=== PATIENT | male | born 1940 | race Caucasian/White ===

== ENCOUNTER 2017-03-29 00:37 | Inpatient (IN) | payer MEDICARE ==
[2017-03-29] VITALS (50 sets, daily range): BP systolic 77–141; BP diastolic 41–98
[~2017-03-29] VITALS: Ht 185.4 cm; Wt 98.0 kg
[2017-03-29] MEDS: IPRATROPIUM BROMIDE 0.02% 2.5 ML NEB NEB SCH ×5 (00:30→14:46)
[2017-03-29] MEDS: ALBUTEROL SULF 0.083% NEB SOLN 3 ML NEB NEB SCH ×5 (00:30→14:46)
[~2017-03-29 00:37] MED LIST: ALLEGRA60 MG PO; ASPIRIN81 M2 PO; BEANO1 EACH PO; BENADRYL25 MG PO; CLARITIN10 MG PO; COMBIVENT INH14.7 GM; ECOTRIN81 M1 PO; ESSENTIAL DAIL1 EACH PO; FISH OIL500 MG PO; FLONASE16 GM; HCTZ PO; IBUPROFEN600 MG PO; IPRAT-ALBUT 0.5-3 ML; IPRATROPIU0.2 MG/1 M INH; IRON DEXTRAN; KEFLEX500 MG PO; METOPROLOL TART25 MG PO; METOPROLOL TART50 MG PO; PANTOPRAZOLE SO40 MG PO; POTASSIUM CHLO10 MEQ PO; PREDNISONE5 MG PO; PRILOSEC20 MG PO; SINGULAIR10 MG PO; TYLENOL PO; VENTOLIN HFA18 GM; VENTOLIN HFA18 GM INH; VIT D PO; VITAMIN D1000 UNI1 PO; Z.0.ACTOS15 MG PO; Z.0.DIOVAN HCT 1601 PO; Z.0.GLIMEPIRIDE4 MG PO; Z.0.KLOR-CON M2020 M PO; Z.0.LASIX40 MG PO; Z.0.LASIX80 MG PO; Z.0.METFORMIN HCL500 PO; Z.0.MOTRIN600 MG PO; Z.0.PLAVIX75 MG PO; Z.0.PRADAXA150 MG PO; Z.0.PRILOSEC OTC20 M PO; Z.0.SIMVASTATIN40 MG PO; Z.0.TERAZOSIN HCL10 PO; Z.0.TERAZOSIN HCL5 M PO; Z.0.ZOCOR40 MG PO; Z.4.AMLODIPINE-BEN1 PO; ZYRTEC-D TABLE1 EACH PO; [UNRECOGNIZED DRUG - OTHER]; [UNRECOGNIZED DRUG - OTHER] PO; [UNRECOGNIZED DRUG - OTHER] PO; [UNRECOGNIZED DRUG - OTHER] PO; [UNRECOGNIZED DRUG - OTHER] TOP
[2017-03-29 01:13] LABS: BASOPHILS # (AUTO) 0.1 (0.0-0.1); BASOPHILS % 0.5 % (0.0-1.0); EOSINOPHILS # (AUTO) 0.3 (0.0-0.4); EOSINOPHILS % 1.7 % (0.0-6.0); HEMATOCRIT 24.1 % (38.2-49.6); LYMPHOCYTES # (AUTO) 2.6 (1.0-3.2); LYMPHOCYTES % 15.2 % (18.0-39.1); MEAN CORPUSCULAR HEMOGLOBIN 23.1 pg (28-32); MEAN CORPUSCULAR VOLUME 79.5 fL (81-99); MONOCYTES # (AUTO) 1.1 (0.2-0.8); MONOCYTES % 6.3 % (4.4-11.3); NEUTROPHILS # (AUTO) 12.8 (2.1-6.9); NEUTROPHILS % 75.9 % (38.7-80.0); PLATELET COUNT 192 x10e3/uL (140-360); RED BLOOD COUNT 3.03 x10e6/uL (4.3-5.7); RED CELL DISTRIBUTION WIDTH 21.5 % (11.7-14.4)
[2017-03-29 01:16] LABS: INR 1.36; PROTHROMBIN TIME 17.5 seconds (11.9-14.5)
[2017-03-29 01:17] LABS: PARTIAL THROMBOPLASTIN TIME 44.9 seconds (23.8-35.5)
[2017-03-29 01:26] LABS: ALBUMIN 3.3 g/dL (3.5-5.0); ALBUMIN/GLOBULIN RATIO 1.1 (0.8-2.0); ALKALINE PHOSPHATASE 53 IU/L (40-150); ANION GAP 17.2 mmol/L (8-16); BLOOD UREA NITROGEN 28 mg/dL (7-26); BUN/CREATININE RATIO 25 (6-25); CALCIUM 9.6 mg/dL (8.4-10.2); CARBON DIOXIDE 22 mmol/L (22-29); CHLORIDE 109 mmol/L (98-107); CREATINE KINASE 28 IU/L (30-200); CREATININE, SERUM 1.11 mg/dL (0.72-1.25); EST GLOMERULAR FILTRATION RATE > 60 ML/MIN (60-); GLUCOSE 175 mg/dL (74-118); MAGNESIUM 1.6 MG/DL (1.3-2.1); POTASSIUM 4.2 mmol/L (3.5-5.1); SODIUM 144 mmol/L (136-145)
[2017-03-29 01:27] LABS: ALANINE AMINOTRANSFERASE < 6 IU/L (0-55)
[2017-03-29 01:30] LABS: B-TYPE NATRIURETIC PEPTIDE2 183.8 pg/mL (0-100)
[2017-03-29] MEDS ORDERED: FUROSEMIDE INJ 10 MG/ML 2 ML VIAL IV PRN (01:30)
[2017-03-29] MEDS ORDERED: SODIUM CHLORIDE 0.9% 250ML 250 ML IV ONE ×3 (01:30→18:45)
--- NOTE | 2017-03-29 01:54 | Diagnostic Imaging Report ---
EXAM: CHEST 2 VIEWS, PA and lateral ORDER DATE: 03/29/2017 12:58 AM TIME STAMP ON EXAM: 0128 hours INDICATION: Chest pain, near syncope COMPARISON: AP view of the chest February 29, 2012 FINDINGS: LINES/TUBES: None LUNGS: No consolidations or edema. PLEURA: No effusions or pneumothorax. HEART AND MEDIASTINUM: Normal size and contour. BONES AND SOFT TISSUES: No acute findings. IMPRESSION: No acute thoracic abnormality. Signed by: Dr. Corina Zaragoza M.D. on 03/29/2017 1:50 AM
[2017-03-29] MEDS ORDERED: SODIUM CHLORIDE 0.9% 1000ML 1,000 ML IV STA ×2 (02:09→15:59)
[2017-03-29] MEDS ORDERED: PANTOPRAZOLE 40 MG 10ML VIAL IV STA (02:09)
[2017-03-29] MEDS ORDERED: ALBUTEROL SULF 0.083% NEB SOLN 3 ML NEB NEB STA (02:10)
[2017-03-29] MEDS ORDERED: IPRATROPIUM BROMIDE 0.02% 2.5 ML NEB NEB ONE (02:15)
[2017-03-29] MEDS ORDERED: VANCOMYCIN 1GM/NS 250 ML 250 ML IV STA (02:38)
[2017-03-29] MEDS ORDERED: CEFEPIME HCL 2 GM VIAL IV STA (02:38)
[2017-03-29] MEDS ORDERED: SODIUM CHLORIDE 0.9% 50ML 50 ML ONE (02:59)
[2017-03-29] MEDS ORDERED: IOPAMIDOL 370 MG/ML 200 ML INFUS..BTL INJ ONE (02:59)
--- NOTE | 2017-03-29 03:56 | Diagnostic Imaging Report ---
EXAM: CT ABDOMEN AND PELVIS with IV CONTRAST DATE: 03/29/2017 Time stamp on Exam: 0322 hours INDICATION: Abdominal pain, GI bleeding, diarrhea COMPARISON: None TECHNIQUE: The abdomen and pelvis were scanned using a multidetector helical scanner. Coronal and sagittal reformations were obtained. Routine protocol performed. IV Contrast: 100 cc Isovue-370 Oral Contrast: None CTDIvol has been reviewed. It is below the limits set by the Radiation Protocol Committee (RPC). FINDINGS: LOWER THORAX: No consolidations LIVER: Cyst measuring 1.7 cm in the right lobe of the liver. Several subcentimeter hypodensities are too small to characterize, likely cysts. BILIARY: Cholecystectomy. No ductal dilation. SPLEEN: The spleen is small PANCREAS: No masses ADRENALS: Left adrenal gland hypertrophy KIDNEYS: Symmetric perfusion. No enhancing masses. No hydronephrosis. Simple cyst measuring 1.5 cm and the right kidney and 2 cm and the left kidney. Nonspecific bilateral perinephric fat stranding. GI TRACT: Sigmoid colon diverticulosis with wall thickening and without acute inflammation. Scattered diverticula throughout the colon. No bowel obstruction. Incidentally the appendix contains diverticula. No periappendiceal fat stranding. 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 PERITONEUM/RETROPERITONEUM: No free air or fluid. Round calcified mass measuring approximately 1.5 cm in the anterior upper abdomen, likely related to old fat necrosis. LYMPH NODES: No lymphadenopathy REPRODUCTIVE ORGANS: The prostate contains coarse calcifications and is within normal size limits. BLADDER: Unremarkable SOFT TISSUES: Incidental partially visualized intramuscular lipoma right anterior thigh. BONES: No suspicious bone lesions. IMPRESSION: Extensive colonic diverticulosis with chronic diverticulitis of the sigmoid colon. Signed by: Dr. Corina Zaragoza M.D. on 03/29/2017 3:53 AM
--- NOTE | 2017-03-29 04:28 | Diagnostic Imaging Report ---
Examination: CT BRAIN WITHOUT CONTRAST History:Dizziness Comparison studies:Head CT dated 09/01/2010. Technique: Axial images were obtained from the skull base to the vertex. Coronal and sagittal images reconstructed from the axial data. Intravenous contrast: None Findings: Scalp: No abnormalities. Bones: Intact. No fractures. No blastic or lytic lesions. Brain sulci: Appropriate for patient's age. Ventricles: Normal in size and configuration. No hydrocephalus. . Extra-axial space: No abnormalities. Parenchyma: There are mild confluent areas of low-attenuation within subcortical and periventricular white matter, nonspecific, but could represent microvascular ischemic disease. No masses, hemorrhage, or acute vascular insults. Suprasellar region: No abnormalities. Craniocervical junction: The foramen magnum is patent. No Chiari one malformation. Incidental findings: None. Impression: 1. No acute intracranial abnormality. No change from prior head CT dated 09/01/2010. 2. Mild chronic microvascular ischemic change. Signed by: Dr. Mallika Trujillo M.D. on 03/29/2017 4:25 AM
[2017-03-29 04:32] LABS: BILIRUBIN,URINE NEGATIVE (NEGATIVE); CLARITY,URINE CLEAR (CLEAR); COLOR,URINE YELLOW (YELLOW); KETONES,URINE NEGATIVE (NEGATIVE); LEUKOCYTE ESTERASE ,URINE TRACE (NEGATIVE); NITRITE,URINE NEGATIVE (NEGATIVE); PROTEIN,URINE DIPSTICK NEGATIVE (NEGATIVE); URINE UROBILINOGEN 0.2 mg/dL (0.2 - 1)
[2017-03-29 04:38] LABS: BACTERIA,URINE FEW /HPF; EPITHELIAL CELLS,URINE RARE /LPF; RBC,URINE 0-5 /HPF (0-5)
[2017-03-29] MEDS ORDERED: VANCOMYCIN 1GM/NS 250 ML 250 ML ONE (04:43)
[2017-03-29] MEDS ORDERED: SODIUM CHLORIDE 0.9% 250ML 250 ML ONE ×3 (05:52→18:16)
[2017-03-29] MEDS ORDERED: METRONIDAZOLE 500MG/NS 100ML 100 ML IV SCH (06:00)
[2017-03-29] MEDS ORDERED: BENAZEPRIL HCL40 MG PO (08:24)
[2017-03-29] MEDS ORDERED: METFORMIN HCL500 M1 PO (08:24)
[2017-03-29] MEDS ORDERED: AMLODIPINE BESY10 MG PO (08:24)
[2017-03-29] MEDS ORDERED: K DUR10 MEQ PO (08:24)
[2017-03-29] MEDS ORDERED: TERAZOSIN HCL10 MG PO (08:24)
[2017-03-29] MEDS ORDERED: LEVOFLOXACIN500 MG PO (08:24)
[2017-03-29] MEDS ORDERED: SIMVASTATIN40 MG PO (08:24)
[2017-03-29] MEDS ORDERED: PANTOPRAZOLE 40 MG 10ML VIAL IV SCH ×2 (09:00)
[2017-03-29] MEDS: SODIUM CHLORIDE 0.9% 1000ML 1,000 ML IV SCH ×2 (10:16→22:17)
[2017-03-29] MEDS: CEFEPIME HCL 2 GM VIAL IV SCH (12:47)
[2017-03-29] MEDS: ONDANSETRON HCL INJ 2 MG/ML VIAL IV PRN (12:47)
[2017-03-29] MEDS ORDERED: PROMETHAZINE 25MG/ NS 50ML (IV) IV PRN (13:30)
[2017-03-29] MEDS ORDERED: DIPHENHYDRAMINE HCL INJ 1 ML ONE (14:27)
[2017-03-29] MEDS ORDERED: DIPHENHYDRAMINE HCL INJ 50 MG/ML VIAL IV ONE (14:30)
[2017-03-29] MEDS ORDERED: ETOMIDATE 2 MG/ML 10 ML INJ IV STA (15:40)
[2017-03-29] MEDS ORDERED: PROPOFOL IV EMULSION 10MG/ML 100 ML ONE (15:48)
[2017-03-29] MEDS ORDERED: SODIUM CHLORIDE 0.9% IV ONE (16:35)
[2017-03-29] MEDS ORDERED: AMINOCAPROIC ACID IV ONE (16:35)
[2017-03-29] MEDS ORDERED: MIDAZOLAM HCL 2 MG/2 ML VIAL ONE (16:46)
[2017-03-29] MEDS ORDERED: OCTREOTIDE ACETATE 0.05 MG/ML AMP IV STA (16:58)
[2017-03-29] MEDS ORDERED: MIDAZOLAM HCL 2 MG/2 ML VIAL IV STA (17:15)
[2017-03-29] MEDS ORDERED: SODIUM CHLORIDE 0.9% 1000ML 1,000 ML ONE (17:15)
[2017-03-29] MEDS ORDERED: ALBUMIN HUMAN 12.5GM / 50ML IV ONE (17:15)
[2017-03-29] MEDS ORDERED: NOREPINEPHRINE BITARTRATE/ NS 250 ML ONE (17:15)
[2017-03-29] MEDS ORDERED: PANTOPRAZOLE INJ 40 MG in SODIUM CHLORIDE 0.9% 50ML 50 ML IV STA (17:28)
--- NOTE | 2017-03-29 17:42 | Diagnostic Imaging Report ---
PROCEDURE: A single AP view of the chest. COMPARISON: Chest radiograph 03/29/2017 at 0128 hrs. INDICATIONS: INTUBATION FINDINGS: Lines/tubes: * Right IJ central venous catheter tip overlies the mid SVC. * Endotracheal tube tip projects approximately 4.7 cm above the pallavi. Lungs: New linear and hazy opacities in the left upper lung. No evidence of pulmonary edema. Pleura: There is no pleural effusion or pneumothorax. Heart and mediastinum: The heart and the mediastinum are unremarkable. Bones: No acute bony abnormality. Upper abdomen: Visualized portions of the stomach appear distended. IMPRESSION: 1. ET tube with tip approximately 4.7 cm above the pallavi. 2. Right IJ catheter tip at the level of the mid SVC. 3. New opacities in the left lung may represent atelectasis or developing consolidation. Dictated by: Miguel Angel M.D. on 03/29/2017 at 17:51 Electronically approved by: Miguel Angel M.D. on 03/29/2017 at 17:51
[2017-03-29 17:52] LABS: ABG HCO3 16 mmol/L (23-28); ABG PCO2 41 mmHg (41-51); ABG PH 7.18 (7.31-7.41); ABG PO2 318 mmHg (80-105)
[2017-03-29 17:55] LABS: ABG HCO3 17 mmol/L (23-28); ABG PCO2 26 mmHg (41-51); ABG PH 7.41 (7.31-7.41); ABG PO2 78 mmHg (80-105)
[2017-03-29] MEDS ORDERED: FUROSEMIDE INJ 10 MG/ML 4 ML VIAL ONE (18:16)
[2017-03-29 18:27] LABS: BASOPHILS % 0.1 % (0.0-1.0); EOSINOPHILS % 0.2 % (0.0-6.0); LYMPHOCYTES # (AUTO) 2.1 (1.0-3.2); LYMPHOCYTES % 13.3 % (18.0-39.1); MEAN CORPUSCULAR HEMOGLOBIN 24.3 pg (28-32); MEAN CORPUSCULAR HGB CONC 28.4 g/dL (31-35); MEAN CORPUSCULAR VOLUME 85.6 fL (81-99); MONOCYTES # (AUTO) 1.1 (0.2-0.8); MONOCYTES % 6.8 % (4.4-11.3); NEUTROPHILS # (AUTO) 12.5 (2.1-6.9); PLATELET COUNT 113 x10e3/uL (140-360); RED BLOOD COUNT 1.81 x10e6/uL (4.3-5.7); RED CELL DISTRIBUTION WIDTH 20.6 % (11.7-14.4)
[2017-03-29 18:32] LABS: HEMATOCRIT 15.5 % (38.2-49.6); HEMOGLOBIN 4.4 g/dL (14.0-18.0)
[2017-03-29] MEDS ORDERED: SUCCINYLCHOLINE CHLORIDE 20 MG/ML 10ML VIAL ONE (18:34)
[2017-03-29] MEDS ORDERED: ETOMIDATE 2 MG/ML 10 ML INJ IV ONE (18:34)
[2017-03-29] MEDS ORDERED: VECURONIUM BROMIDE FOR INJ 20 MG VIAL ONE (18:34)
[2017-03-29] MEDS ORDERED: NALOXONE HCL INJ 0.4 MG/ML AMP ONE (18:34)
[2017-03-29] MEDS ORDERED: WATER STERILE 10 ML VIAL ONE (18:34)
[2017-03-29] MEDS ORDERED: FUROSEMIDE INJ 10 MG/ML 4 ML VIAL IV ONE (18:45)
[2017-03-29] MEDS ORDERED: AMIODARONE HCL 150 MG/100 ML BAG IV ONE (18:45)
[2017-03-29] MEDS ORDERED: AMIODARONE HCL 150 MG in DEXTROSE 5% 100ML 100 ML IV SCH (19:00)
[2017-03-29] MEDS ORDERED: DIGOXIN INJ 0.25 MG/ML 2 ML AMP IV ONE (19:00)
[2017-03-29] MEDS: OCTREOTIDE ACETATE 500 MCG in SODIUM CHLORIDE 0.9% 250ML 249 ML IV SCH (19:04)
[2017-03-29] MEDS: METRONIDAZOLE 500MG/NS 100ML 100 ML IV SCH ×2 (19:36→22:00)
[2017-03-29] MEDS: NOREPINEPHRINE BITARTRATE/ NS 250 ML IV SCH ×2 (19:40→23:49)
[2017-03-29] MEDS: MIDAZOLAM HCL 25 MG in SODIUM CHLORIDE 0.9% 50ML 45 ML IV PRN ×2 (19:42→22:14)
[2017-03-29] MEDS ORDERED: SODIUM BICARBONATE 8.4% INJ 50 ML SYR IV STA (19:59)
--- NOTE | 2017-03-29 21:35 | Consultation ---
DATE OF CONSULTATION: March 29, 2017 REQUESTING PHYSICIAN: Dr. Avendaño. REASON FOR CONSULTATION: Atrial fibrillation. HISTORY OF PRESENT ILLNESS: Mr. Du is a 76-year-old gentleman with past medical history as listed below. Reported presented with lower GI bleed. He reportedly had cough, congestion for about 3 weeks and was feeling very dizzy and had near syncopal episodes. The patient reportedly also had collapsed, but did not lose total consciousness. Due to his GI bleed, the patient was started on blood transfusion. He apparently became agitated, jerky, went into respiratory distress and had to be intubated. Following intubation and NG tube placement, the patient had blood in his NG tube aspirate. The patient has history of atrial fibrillation and reportedly was taking Pradaxa. He is currently intubated and no history can be obtained from the patient. Most of the history is obtained from the nurse and the chart. Initially, Dr. Ovalle was consulted. However, the patient reportedly sees Dr. Karel Hines and so the consult was switched to us. The patient has also been seen by hematology and GI. He received albumin and Amicar and plan is to transfuse more packed red blood cells. REVIEW OF SYSTEMS: Not obtainable. ALLERGIES: NO KNOWN DRUG ALLERGIES. PAST MEDICAL HISTORY: History of atrial fibrillation. History of hypertension. History of diabetes mellitus. History of COPD. History of CHF. History of pancreatitis. History of obstructive sleep apnea. History of diverticular disease. MEDICATIONS: See list. SOCIAL HISTORY: Does not smoke or drink. FAMILY HISTORY: Noncontributory. PHYSICAL EXAMINATION: GENERAL: A well-nourished, well-developed gentleman. He is intubated on a vent, non, communicative. VITALS: Heart rate is in the 120s, blood pressure 149/72. HEENT: Atraumatic. Orotracheal tube in place. Bloody secretions from his NG tube. NECK: No JVD, bruit, thyromegaly or lymphadenopathy. CARDIOVASCULAR: First and second heart sounds heard. No murmurs, rubs or gallops appreciated. CHEST: Decreased air entry at the bases. No adventitious sounds appreciated. ABDOMEN: Obese, nontender. EXTREMITIES: Brownish discoloration of his shins, no edema. LABORATORY DATA: Sodium is 144, potassium 4.2, chloride 109, bicarb 22. BUN is 28 and creatinine 1.1. Hemoglobin 7.0, hematocrit 24.1, platelets 192,000, white count 16.9. IMPRESSION: 1. Gastrointestinal bleed, upper and lower. 2. Atrial fibrillation with rapid ventricular rate. 3. Hypotension. 4. History of diabetes mellitus. 5. History is diverticular disease. 6. History of congestive heart failure. 7. History of chronic obstructive pulmonary disease. 8. History of obstructive sleep apnea. PLAN: Patient has received multiple units of packed red blood cells, Amicar and albumin. He reportedly was on Pradaxa. However, is not on formulary and not available. He has been seen by hematology who are managing the reversal. The patient's heart rate is on the higher side. Will give him a dose of digoxin and start him on an amiodarone drip if it continues to remain high. Get echocardiogram to assess LV function and valvular function. Further cardiac workup depending on clinical course. As always I appreciate and thank you very much for your referrals. Job#: [id number]
[2017-03-29] MEDS: PANTOPRAZOL 40MG/SOD CHL 0.9% 50 ML IV SCH ×2 (21:58→22:58)
[2017-03-29 22:58] LABS: ABG HCO3 21 mmol/L (23-28); ABG PCO2 34 mmHg (41-51); ABG PH 7.39 (7.31-7.41); ABG PO2 133 mmHg (80-105)
[2017-03-30] VITALS (74 sets, daily range): BP systolic 82–154; BP diastolic 50–116
[2017-03-30] MEDS: MIDAZOLAM HCL 25 MG in SODIUM CHLORIDE 0.9% 50ML 45 ML IV PRN ×9 (00:19→22:21)
[2017-03-30 00:25] LABS: BASOPHILS % 0.2 % (0.0-1.0); HEMATOCRIT 24.2 % (38.2-49.6); LYMPHOCYTES # (AUTO) 1.8 (1.0-3.2); MEAN CORPUSCULAR HEMOGLOBIN 27.1 pg (28-32); MEAN CORPUSCULAR HGB CONC 31.8 g/dL (31-35); MEAN CORPUSCULAR VOLUME 85.2 fL (81-99); MONOCYTES # (AUTO) 2.1 (0.2-0.8); MONOCYTES % 9.7 % (4.4-11.3); NEUTROPHILS # (AUTO) 17.9 (2.1-6.9); NEUTROPHILS % 81.6 % (38.7-80.0); PLATELET COUNT 103 x10e3/uL (140-360); RED BLOOD COUNT 2.84 x10e6/uL (4.3-5.7); RED CELL DISTRIBUTION WIDTH 18.4 % (11.7-14.4)
[2017-03-30 00:30] LABS: HEMOGLOBIN 7.7 g/dL (14.0-18.0)
[2017-03-30] MEDS ORDERED: SODIUM CHLORIDE 0.9% 250ML 250 ML IV ONE (01:45)
--- NOTE | 2017-03-30 02:41 | Consultation ---
DATE OF CONSULTATION: March 29, 2017 PULMONARY/CRITICAL CARE CONSULTATION HISTORY OF PRESENT ILLNESS: The patient is a 76-year-old man. He has a history of atrial fibrillation and intermittent congestive heart failure. He had sinus congestion and cough over the past several weeks. He received antibiotics along with nasal sprays. Two days ago, he noted some dark stools. He started to become lightheaded when he stood up. Eventually, he fainted and collapsed. He was taken to the ER and was found to have a hemoglobin of 7 that subsequently dropped to 4.4. Since being in the ER, the patient had worsening trouble breathing and required intubation. He also required several units of packed red blood cells and is still receiving packed red blood cells at this time. He was also placed on Levophed. PAST MEDICAL HISTORY 1. Hypertension. 2. Congestive heart failure. 3. Atrial fibrillation. 4. Pancreatitis. PAST SURGICAL HISTORY 1. Cholecystectomy. 2. Appendectomy. SOCIAL HISTORY: The patient is a not a smoker. He is not a drinker. FAMILY HISTORY: Family history is noncontributory. REVIEW OF SYSTEMS: The patient did not have fevers. He does have some headache and congestion. He also has some intermittent cough. He does not have chest pain. He is not having any abdominal pain. He had some melena as well as some dark stools. He also had some discolored vomitus after they placed the NG tube. He does not have any leg swelling. There is no focal neurological complaints. PHYSICAL EXAMINATION VITAL SIGNS: The blood pressure is now 107/50, but he is still on Levophed at 20 mcg. He is receiving packed red blood cells. He is on a ventilator with PRVC mode of ventilation at a rate of 20 and a tidal volume of 550 mL. HEENT: No facial swelling or erythema. There is an oral endotracheal tube. There is a right IJ line in place. CARDIAC: Regular rate and rhythm with normal S1 and S2. There are no murmurs or rubs. LUNGS: Auscultation of the lungs reveals crackles at the bases. There is no wheezing. ABDOMEN: Soft and nontender. There is no rebound or guarding. EXTREMITIES: No leg edema or calf tenderness. There is no cyanosis or clubbing. NEUROLOGIC: No focal abnormalities. LABORATORY DATA: CBC from 1430 today showed a white blood cell count of 15.7 with a hemoglobin of 4.4 and a platelet count of 113,000. The B-natriuretic peptide was 183. The lactic acid was 54. The BUN to creatinine ratio was 28:1.1. The other electrolytes within normal limits. Liver tests are within normal limits. The albumin was 3.3. PT 17.5 and the INR is 1.36. The PTT is 44.9. Last blood gas was 7.18, 41, and 16. RADIOGRAPHIC DATA: Chest x-ray shows right IJ catheter in place. There is some opacity in the left lung, mostly in the upper lung field. IMPRESSIONS 1. Upper gastrointestinal bleed with acute blood loss. 2. Hemorrhagic shock. 3. Possible pneumonia. 4. Atrial fibrillation with a rapid ventricular rate. 5. Mixed metabolic and respiratory acidosis. PLAN 1. The patient will continue to require treatment for hemorrhagic shock. Scheduled to receive 2 more units of packed red blood cells. He also received fresh frozen plasma. 2. We will monitor the platelet count and transfuse platelets if required. 3. The patient will need an ionized calcium. He may require some calcium replacement as a result of the massive transfusion. 4. Bicarbonate times 1 for the metabolic acidosis. 5. Increase minute ventilation to correct the lack of respiratory compensation for his ongoing metabolic acidosis. 6. Broad-spectrum antibiotics for possible left-sided pneumonia and sepsis. 7. Monitor ventricular rate and treat the atrial fibrillation as required. 8. Gastroenterology consultation. Job#: [id number]
[2017-03-30] MEDS: CEFEPIME HCL 2 GM VIAL IV SCH ×2 (03:12→16:22)
[2017-03-30] MEDS: OCTREOTIDE ACETATE 500 MCG in SODIUM CHLORIDE 0.9% 250ML 249 ML IV SCH ×3 (03:19→23:11)
[2017-03-30] MEDS: IPRATROPIUM BROMIDE 0.02% 2.5 ML NEB NEB SCH ×5 (03:27→23:55)
[2017-03-30] MEDS: ALBUTEROL SULF 0.083% NEB SOLN 3 ML NEB NEB SCH ×5 (03:27→23:55)
[2017-03-30] MEDS: PANTOPRAZOL 40MG/SOD CHL 0.9% 50 ML IV SCH ×4 (03:45→20:38)
[2017-03-30] MEDS: METRONIDAZOLE 500MG/NS 100ML 100 ML IV SCH ×4 (05:36→22:20)
--- NOTE | 2017-03-30 06:13 | Diagnostic Imaging Report ---
EXAM: CHEST SINGLE (PORTABLE), AP 1 view ORDER DATE: 03/30/2017 6:00 AM Time stamp on exam: 0515 hours INDICATION: Respiratory failure COMPARISON: AP view of the chest March 29, 2017 FINDINGS: LINES/TUBES: Endotracheal tube terminates 5 cm above the pallavi. Right internal jugular vein central line terminates in expected location of the proximal superior vena cava. Nasal/orogastric tube terminates in expected location of the fundus of the stomach. LUNGS: Perihilar and bibasilar atelectasis. PLEURA: No effusions or pneumothorax. HEART AND MEDIASTINUM: Stable appearance. BONES AND SOFT TISSUES: No acute findings. IMPRESSION: Perihilar and bibasilar atelectasis. Signed by: Dr. Corina Zaragoza M.D. on 03/30/2017 6:09 AM
[2017-03-30] MEDS: NOREPINEPHRINE BITARTRATE/ NS 250 ML IV SCH ×3 (07:49→22:29)
[2017-03-30 08:10] LABS: BASOPHILS # (AUTO) 0.1 (0.0-0.1); BASOPHILS % 0.3 % (0.0-1.0); EOSINOPHILS # (AUTO) 0.1 (0.0-0.4); EOSINOPHILS % 0.5 % (0.0-6.0); HEMATOCRIT 26.4 % (38.2-49.6); HEMOGLOBIN 8.6 g/dL (14.0-18.0); LYMPHOCYTES # (AUTO) 2.4 (1.0-3.2); LYMPHOCYTES % 12.8 % (18.0-39.1); MEAN CORPUSCULAR HEMOGLOBIN 27.4 pg (28-32); MEAN CORPUSCULAR HGB CONC 32.6 g/dL (31-35); MEAN CORPUSCULAR VOLUME 84.1 fL (81-99); MONOCYTES % 10.9 % (4.4-11.3); NEUTROPHILS # (AUTO) 13.8 (2.1-6.9); NEUTROPHILS % 75.1 % (38.7-80.0); PLATELET COUNT 111 x10e3/uL (140-360); RED BLOOD COUNT 3.14 x10e6/uL (4.3-5.7); RED CELL DISTRIBUTION WIDTH 18.1 % (11.7-14.4)
[2017-03-30 08:27] LABS: INR 1.24
[2017-03-30 08:28] LABS: PARTIAL THROMBOPLASTIN TIME 33.1 seconds (23.8-35.5); PROTHROMBIN TIME 16.2 seconds (11.9-14.5)
[2017-03-30 08:37] LABS: ALANINE AMINOTRANSFERASE 6 IU/L (0-55); ALBUMIN 2.5 g/dL (3.5-5.0); ALBUMIN/GLOBULIN RATIO 1.3 (0.8-2.0); ALKALINE PHOSPHATASE 42 IU/L (40-150); ANION GAP 12.9 mmol/L (8-16); BLOOD UREA NITROGEN 32 mg/dL (7-26); BUN/CREATININE RATIO 27 (6-25); CALCIUM 7.5 mg/dL (8.4-10.2); CARBON DIOXIDE 22 mmol/L (22-29); CHLORIDE 117 mmol/L (98-107); CREATININE, SERUM 1.17 mg/dL (0.72-1.25); EST GLOMERULAR FILTRATION RATE > 60 ML/MIN (60-); GLUCOSE 236 mg/dL (74-118); POTASSIUM 3.9 mmol/L (3.5-5.1); SODIUM 148 mmol/L (136-145)
[2017-03-30] MEDS: SODIUM CHLORIDE 0.9% 1000ML 1,000 ML IV SCH ×2 (10:11→16:08)
[2017-03-30] MEDS ORDERED: DEXMEDETOMIDINE HCL 200 MCG in SODIUM CHLORIDE 0.9% 50ML 48 ML IV PRN (12:30)
--- NOTE | 2017-03-30 16:51 | Progress Note ---
DATE: March 30, 2017 PULMONARY/CRITICAL CARE MEDICINE PROGRESS NOTE SUBJECTIVE: Mr. Du was seen and examined at bedside. He continues to be intubated. Pressors have readily come down. He was on Levophed up to 18 mcg yesterday and now is at 4 mcg per minute. Patient with multiple packed red blood cell transfusions and appearing more stable hemodynamically. There is no definite active bleeding at this time. Emergency EGD was done today with banding. There were findings of hiatal hernia, duodenal ulcer, multiple gastritis, multiple blood clots in the fundus. The patient remains intubated at this time. REVIEW OF SYSTEMS: Cannot get as he is intubated. OBJECTIVE VITALS: Afebrile. Vital signs unstable per record. He was started on pressors. HEENT: Normocephalic and atraumatic. NECK: Supple. Throat midline. LUNGS: Bilateral air entry, a few rhonchi, a few rales bilaterally. CARDIOVASCULAR: S1 and S2. No murmurs, rubs, or gallops. ABDOMEN: Soft and nontender. EXTREMITIES: No clubbing. No cyanosis. There is small edema. INTEGUMENT: No rash. No purpura. LABS: 18 white count, 26 hematocrit, 111 platelets, 7.39/34/133 ABG yesterday. Chemistries: 148 sodium, 3.9 potassium, 117 chloride, 22 bicarbonate, 1.2 creatinine. Magnesium 1.6. Albumin 2.5. INR is 1.2. IMPRESSION AND PLAN 1. Acute respiratory failure, intubated. 2. Abnormal chest radiography, atelectasis versus other. 3. Shock, blood loss plus other etiologies likely. 4. Leukocytosis, treat as severe sepsis. 5. Thrombocytopenia. 6. Hypernatremia. 7. Aberrant hypoalbuminemia. 8. History of congestive heart failure, hypertension, atrial fibrillation. Follow up closely. Keep him intubated and wean off pressors. Continue to ensure there is no further bleeding. Continue recommendations as per GI. Wean pressors. Consider extubating based on his cardiac reserve, given his history of cardiac issues as well as dosing of pressors coming down. Will follow along closely. Seen multiple times during the night and day. Greater than 30 minutes of direct care. Job#: [id number]
[2017-03-30] MEDS ORDERED: PROPOFOL IV EMULSION 10 MG/ML 20 ML VIAL ONE (18:25)
[2017-03-30 18:38] LABS: BASOPHILS # (AUTO) 0.1 (0.0-0.1); BASOPHILS % 0.4 % (0.0-1.0); EOSINOPHILS # (AUTO) 0.2 (0.0-0.4); HEMOGLOBIN 8.4 g/dL (14.0-18.0); LYMPHOCYTES # (AUTO) 2.2 (1.0-3.2); LYMPHOCYTES % 12.2 % (18.0-39.1); MEAN CORPUSCULAR HEMOGLOBIN 27.5 pg (28-32); MEAN CORPUSCULAR HGB CONC 32.3 g/dL (31-35); MONOCYTES # (AUTO) 1.5 (0.2-0.8); MONOCYTES % 8.2 % (4.4-11.3); NEUTROPHILS # (AUTO) 14.3 (2.1-6.9); NEUTROPHILS % 77.5 % (38.7-80.0); PLATELET COUNT 119 x10e3/uL (140-360); RED BLOOD COUNT 3.06 x10e6/uL (4.3-5.7); RED CELL DISTRIBUTION WIDTH 18.7 % (11.7-14.4)
[2017-03-30] MEDS ORDERED: MIDAZOLAM HCL 2 MG/2 ML VIAL ONE (19:05)
[2017-03-30] MEDS ORDERED: KETAMINE HCL INJ 50 MG/ML 10 ML VIAL ONE (19:05)
[2017-03-30 20:37] LABS: HYPOCHROMASIA MODERATE; LYMPHOCYTES % (MANUAL) 8 % (19-48); MONOCYTES % (MANUAL) 1 % (3.4-9.0); NEUTROPHILS % (MANUAL) 90 % (40-74)
[2017-03-30 20:38] LABS: ANISOCYTOSIS SLIG; PLATELET ESTIMATE SLIGHTLY DECREASED; PLATELET MORPHOLOGY COMMENT NORMAL; POIKILOCYTOSIS SLIGHT; RBC MORPHOLOGY COMMENT NORMAL
[2017-03-30] MEDS: DEXMEDETOMIDINE HCL 200 MCG in SODIUM CHLORIDE 0.9% 50ML 48 ML IV PRN (23:20)
[2017-03-31] VITALS (54 sets, daily range): BP systolic 79–173; BP diastolic 54–95
[2017-03-31] MEDS: PANTOPRAZOL 40MG/SOD CHL 0.9% 50 ML IV SCH ×5 (00:14→20:19)
[2017-03-31] MEDS: ALBUTEROL SULF 0.083% NEB SOLN 3 ML NEB NEB SCH ×6 (00:30→19:46)
[2017-03-31 00:41] LABS: BASOPHILS # (AUTO) 0.1 (0.0-0.1); BASOPHILS % 0.5 % (0.0-1.0); EOSINOPHILS # (AUTO) 0.6 (0.0-0.4); EOSINOPHILS % 2.7 % (0.0-6.0); HEMATOCRIT 27.7 % (38.2-49.6); HEMOGLOBIN 8.8 g/dL (14.0-18.0); LYMPHOCYTES # (AUTO) 2.2 (1.0-3.2); LYMPHOCYTES % 10.7 % (18.0-39.1); MEAN CORPUSCULAR HEMOGLOBIN 27.2 pg (28-32); MEAN CORPUSCULAR HGB CONC 31.8 g/dL (31-35); MEAN CORPUSCULAR VOLUME 85.8 fL (81-99); MONOCYTES # (AUTO) 1.7 (0.2-0.8); MONOCYTES % 7.9 % (4.4-11.3); NEUTROPHILS # (AUTO) 16.1 (2.1-6.9); NEUTROPHILS % 77.5 % (38.7-80.0); PLATELET COUNT 137 x10e3/uL (140-360); RED BLOOD COUNT 3.23 x10e6/uL (4.3-5.7); RED CELL DISTRIBUTION WIDTH 19.1 % (11.7-14.4)
[2017-03-31] MEDS: MIDAZOLAM HCL 25 MG in SODIUM CHLORIDE 0.9% 50ML 45 ML IV PRN ×8 (01:16→22:27)
[2017-03-31] MEDS: IPRATROPIUM BROMIDE 0.02% 2.5 ML NEB NEB SCH ×6 (03:20→23:56)
[2017-03-31] MEDS: CEFEPIME HCL 2 GM VIAL IV SCH ×2 (05:00→17:57)
[2017-03-31] MEDS: METRONIDAZOLE 500MG/NS 100ML 100 ML IV SCH ×4 (05:00→21:16)
[2017-03-31] MEDS: DEXMEDETOMIDINE HCL 200 MCG in SODIUM CHLORIDE 0.9% 50ML 48 ML IV PRN ×5 (05:03→23:56)
[2017-03-31 06:03] LABS: BASOPHILS # (AUTO) 0.1 (0.0-0.1); BASOPHILS % 0.4 % (0.0-1.0); EOSINOPHILS # (AUTO) 0.3 (0.0-0.4); EOSINOPHILS % 1.3 % (0.0-6.0); HEMATOCRIT 28.5 % (38.2-49.6); LYMPHOCYTES # (AUTO) 1.5 (1.0-3.2); LYMPHOCYTES % 6.1 % (18.0-39.1); MEAN CORPUSCULAR HEMOGLOBIN 27.3 pg (28-32); MEAN CORPUSCULAR HGB CONC 31.6 g/dL (31-35); MEAN CORPUSCULAR VOLUME 86.4 fL (81-99); MONOCYTES # (AUTO) 1.9 (0.2-0.8); MONOCYTES % 7.4 % (4.4-11.3); PLATELET COUNT 152 x10e3/uL (140-360); RED CELL DISTRIBUTION WIDTH 19.4 % (11.7-14.4)
[2017-03-31 06:15] LABS: INR 1.14; PARTIAL THROMBOPLASTIN TIME 30.3 seconds (23.8-35.5); PROTHROMBIN TIME 15.2 seconds (11.9-14.5)
[2017-03-31] MEDS: SODIUM CHLORIDE 0.9% 1000ML 1,000 ML IV SCH (06:29)
--- NOTE | 2017-03-31 06:31 | Diagnostic Imaging Report ---
EXAM: CHEST SINGLE (PORTABLE), AP 1 view ORDER DATE: 03/31/2017 5:00 AM Time stamp on exam: 0525 hours INDICATION: Intubated COMPARISON: AP view of the chest March 30, 2017 at 0515 hours FINDINGS: LINES/TUBES: Endotracheal tube terminates 7 cm above the pallaiv. Interval removal of nasal/orogastric tube. Right internal jugular vein central line, stable position LUNGS: Increasing bibasilar atelectasis. PLEURA: Likely layering pleural effusions bilaterally. HEART AND MEDIASTINUM: Stable appearance. BONES AND SOFT TISSUES: No acute findings. IMPRESSION: Increasing bibasilar atelectasis and developing bilateral pleural effusions. Signed by: Dr. Corina Zaragoza M.D. on 03/31/2017 6:28 AM
[2017-03-31 06:37] LABS: ALANINE AMINOTRANSFERASE 7 IU/L (0-55); ALBUMIN 2.7 g/dL (3.5-5.0); ALBUMIN/GLOBULIN RATIO 1.1 (0.8-2.0); ALKALINE PHOSPHATASE 48 IU/L (40-150); ANION GAP 11.7 mmol/L (8-16); BLOOD UREA NITROGEN 24 mg/dL (7-26); BUN/CREATININE RATIO 25 (6-25); CALCIUM 7.5 mg/dL (8.4-10.2); CARBON DIOXIDE 22 mmol/L (22-29); CHLORIDE 121 mmol/L (98-107); CREATININE, SERUM 0.95 mg/dL (0.72-1.25); EST GLOMERULAR FILTRATION RATE > 60 ML/MIN (60-); GLUCOSE 210 mg/dL (74-118); MAGNESIUM 1.5 MG/DL (1.3-2.1); PHOSPHORUS 2.2 MG/DL (2.3-4.7); POTASSIUM 3.7 mmol/L (3.5-5.1); SODIUM 151 mmol/L (136-145)
[2017-03-31 08:30] LABS: LYMPHOCYTES % (MANUAL) 2 % (19-48); MONOCYTES % (MANUAL) 4 % (3.4-9.0); NEUTROPHILS % (MANUAL) 93 % (40-74); PLATELET ESTIMATE ADEQUATE; PLATELET MORPHOLOGY COMMENT NORMAL; RBC MORPHOLOGY COMMENT NORMAL
[2017-03-31 08:31] LABS: HYPOCHROMASIA SLIGHT
[2017-03-31] MEDS: OCTREOTIDE ACETATE 500 MCG in SODIUM CHLORIDE 0.9% 250ML 249 ML IV SCH ×2 (09:00→20:24)
[2017-03-31] MEDS: METOPROLOL TARTRATE 25 MG TAB PO SCH (09:00)
[2017-03-31 11:32] LABS: BASOPHILS # (AUTO) 0.1 (0.0-0.1); BASOPHILS % 0.4 % (0.0-1.0); EOSINOPHILS # (AUTO) 0.5 (0.0-0.4); EOSINOPHILS % 2.1 % (0.0-6.0); HEMATOCRIT 26.7 % (38.2-49.6); HEMOGLOBIN 8.3 g/dL (14.0-18.0); LYMPHOCYTES # (AUTO) 1.6 (1.0-3.2); LYMPHOCYTES % 7.1 % (18.0-39.1); MEAN CORPUSCULAR HEMOGLOBIN 27.3 pg (28-32); MEAN CORPUSCULAR HGB CONC 31.1 g/dL (31-35); MEAN CORPUSCULAR VOLUME 87.8 fL (81-99); MONOCYTES # (AUTO) 1.8 (0.2-0.8); NEUTROPHILS # (AUTO) 18.2 (2.1-6.9); NEUTROPHILS % 81.9 % (38.7-80.0); PLATELET COUNT 142 x10e3/uL (140-360); RED BLOOD COUNT 3.04 x10e6/uL (4.3-5.7); RED CELL DISTRIBUTION WIDTH 19.6 % (11.7-14.4)
[2017-03-31] MEDS ORDERED: POTASSIUM PHOSPHATE 20 MM in SODIUM CHLORIDE 0.9% 250ML 250 ML IV ONE (12:45)
[2017-03-31] MEDS ORDERED: DEXTROSE 50% SYRINGE 50 ML IV PRN (12:45)
--- NOTE | 2017-03-31 13:57 | Progress Note ---
DATE: March 31, 2017 PULMONARY MEDICINE PROGRESS NOTE SUBJECTIVE: Mr. Du was seen and examined at bedside. He continues to have intubated state at this time. He is requiring Precedex 0.5 mcg per minute and Versed 5 mg per hour for sedation. He remains on PPI and octreotide drips. He is having multiple episodes of blackish bowel movements. Chest x-ray with increased overload and effusion appearance. Levophed was transiently placed on yesterday, although it is back off today. He remains on additional IV fluids at 75 mL per hour. Had 3.2 L in and 1.9 L out recorded. REVIEW OF SYSTEMS: Cannot get as he is intubated. OBJECTIVE VITALS: Afebrile. Vital signs semi-unstable per record. HEENT: Normocephalic and atraumatic. NECK: Supple. Throat midline. LUNGS: Bilateral air entry, a few rhonchi, a few crackles. CARDIOVASCULAR: S1 and S2. No murmurs, rubs, or gallops. ABDOMEN: EXTREMITIES: No clubbing. No cyanosis. There is still edema. INTEGUMENT: No rash. There are venous stasis changes, though. LABS: 151 sodium, 3.7 potassium, 24 BUN, 0.9 creatinine, 25 white count, 28 hematocrit, 152 platelets. Albumin 2.7, phosphorus 2.2, calcium 7.5. IMPRESSION AND PLAN 1. Acute respiratory failure, intubated. 2. Gastrointestinal bleed, presumed significant upper gastrointestinal bleed component due to duodenal ulcers and gastritis. 3. Shock, multifactorial but now better. 4. Evolving fluid overload. 5. Possible pneumonia. 6. Previous cardiac history. At this time, follow up the white count. Get echo resolved. Patient needs to have further optimization before extubation attempt as he is getting worse on x-ray, and we do not have an updated echo result. Continue to modify electrolytes and normalize them. Tube feeds can be considered to be started if the patient is not planned for scoping and if it is felt the patient is not actively bleeding. However, I will leave that for GI to supervisor cartography. The patient will get another set of CBCs today, given the black output and unclear knowledge if he is actively bleeding. Will follow along closely. Continue sedation. No extubation today. Job#: [id number] MH
[2017-03-31] MEDS: FENTANYL CITRATE/PF 100MCG/2 ML INJ IV PRN ×4 (14:07→21:51)
[2017-03-31] MEDS: VECURONIUM BROMIDE FOR INJ 20 MG VIAL IV PRN ×2 (15:27→23:56)
[2017-03-31] MEDS: VALPROATE SOD IV SCH (17:00)
[2017-03-31] MEDS: SODIUM CHLORIDE 0.9% IV SCH (17:00)
--- NOTE | 2017-03-31 18:03 | Diagnostic Imaging Report ---
PROCEDURE:X-RAY ABDOMEN - KUB COMPARISON:[facility], CT, CT ABDOMEN/PELVIS W, 03/29/2017, 3:19. [facility], DX, CHEST SINGLE (PORTABLE), 03/31/2017, 5:25. INDICATIONS:NASOGASTRIC TUBE PLACEMENT FINDINGS: See conclusion. CONCLUSION: 1. The enteric tube projects in the left upper abdomen, likely coiled in the stomach fundus. 2. Nonobstructive bowel gas pattern. 3. Left retrocardiac opacity and obscuration of the left hemidiaphragm, which may represent left lower lobe consolidation or atelectasis and/or effusion Romario Eden M.D. Dictated by: Romario Eden M.D. on 03/31/2017 at 18:12 Electronically approved by: Romario Eden M.D. on 03/31/2017 at 18:12
[2017-03-31] MEDS: INSULIN REGULAR, HUMAN 100 UNIT/1 ML 3ML VIAL SQ SCH (18:30)
[2017-03-31] MEDS ORDERED: FUROSEMIDE INJ 10 MG/ML 4 ML VIAL ONE (18:55)
[2017-03-31] MEDS: FUROSEMIDE INJ 10 MG/ML 4 ML VIAL IV SCH (19:10)
[2017-03-31 20:40] LABS: BASOPHILS # (AUTO) 0.1 (0.0-0.1); BASOPHILS % 0.5 % (0.0-1.0); EOSINOPHILS # (AUTO) 0.3 (0.0-0.4); EOSINOPHILS % 1.5 % (0.0-6.0); HEMATOCRIT 28.1 % (38.2-49.6); HEMOGLOBIN 8.8 g/dL (14.0-18.0); LYMPHOCYTES # (AUTO) 1.8 (1.0-3.2); LYMPHOCYTES % 8.7 % (18.0-39.1); MEAN CORPUSCULAR HEMOGLOBIN 27.4 pg (28-32); MEAN CORPUSCULAR HGB CONC 31.3 g/dL (31-35); MEAN CORPUSCULAR VOLUME 87.5 fL (81-99); MONOCYTES # (AUTO) 1.5 (0.2-0.8); NEUTROPHILS # (AUTO) 17.4 (2.1-6.9); NEUTROPHILS % 81.6 % (38.7-80.0); PLATELET COUNT 172 x10e3/uL (140-360); RED BLOOD COUNT 3.21 x10e6/uL (4.3-5.7); RED CELL DISTRIBUTION WIDTH 19.9 % (11.7-14.4)
[2017-03-31] MEDS: INSULIN DETEMIR 100 UNIT/ML PEN SQ SCH (21:53)
[2017-04-01] VITALS (82 sets, daily range): BP systolic 105–159; BP diastolic 54–122
[2017-04-01] MEDS: FENTANYL CITRATE/PF 100MCG/2 ML INJ IV PRN ×3 (00:16→07:44)
[2017-04-01] MEDS: INSULIN REGULAR, HUMAN 100 UNIT/1 ML 3ML VIAL SQ SCH ×4 (00:24→17:57)
[2017-04-01] MEDS: MIDAZOLAM HCL 25 MG in SODIUM CHLORIDE 0.9% 50ML 45 ML IV PRN ×3 (01:30→09:31)
[2017-04-01] MEDS: PANTOPRAZOL 40MG/SOD CHL 0.9% 50 ML IV SCH ×5 (02:32→20:33)
[2017-04-01 02:58] LABS: BASOPHILS # (AUTO) 0.1 (0.0-0.1); BASOPHILS % 0.5 % (0.0-1.0); EOSINOPHILS # (AUTO) 0.6 (0.0-0.4); EOSINOPHILS % 2.9 % (0.0-6.0); HEMATOCRIT 28.2 % (38.2-49.6); HEMOGLOBIN 8.6 g/dL (14.0-18.0); LYMPHOCYTES # (AUTO) 1.6 (1.0-3.2); LYMPHOCYTES % 8.1 % (18.0-39.1); MEAN CORPUSCULAR HGB CONC 30.5 g/dL (31-35); MEAN CORPUSCULAR VOLUME 88.7 fL (81-99); MONOCYTES # (AUTO) 1.5 (0.2-0.8); MONOCYTES % 7.2 % (4.4-11.3); NEUTROPHILS # (AUTO) 16.3 (2.1-6.9); NEUTROPHILS % 80.8 % (38.7-80.0); PLATELET COUNT 195 x10e3/uL (140-360); RED BLOOD COUNT 3.18 x10e6/uL (4.3-5.7); RED CELL DISTRIBUTION WIDTH 19.9 % (11.7-14.4)
[2017-04-01] MEDS: CEFEPIME HCL 2 GM VIAL IV SCH ×2 (03:00→15:17)
[2017-04-01] MEDS: IPRATROPIUM BROMIDE 0.02% 2.5 ML NEB NEB SCH ×6 (03:11→23:30)
[2017-04-01] MEDS: ALBUTEROL SULF 0.083% NEB SOLN 3 ML NEB NEB SCH ×6 (03:26→23:30)
[2017-04-01] MEDS: METRONIDAZOLE 500MG/NS 100ML 100 ML IV SCH ×4 (03:45→21:04)
[2017-04-01] MEDS: VALPROATE SOD IV SCH ×2 (04:26→16:40)
[2017-04-01] MEDS: SODIUM CHLORIDE 0.9% IV SCH ×2 (04:26→16:40)
[2017-04-01] MEDS: OCTREOTIDE ACETATE 500 MCG in SODIUM CHLORIDE 0.9% 250ML 249 ML IV SCH ×2 (05:01→16:08)
[2017-04-01] MEDS: FUROSEMIDE INJ 10 MG/ML 4 ML VIAL IV SCH ×3 (05:02→21:05)
[2017-04-01] MEDS: DEXMEDETOMIDINE HCL 200 MCG in SODIUM CHLORIDE 0.9% 50ML 48 ML IV PRN ×2 (05:05→21:10)
[2017-04-01 05:49] LABS: BASOPHILS # (AUTO) 0.1 (0.0-0.1); BASOPHILS % 0.5 % (0.0-1.0); EOSINOPHILS # (AUTO) 0.5 (0.0-0.4); EOSINOPHILS % 2.6 % (0.0-6.0); HEMATOCRIT 26.8 % (38.2-49.6); HEMOGLOBIN 8.1 g/dL (14.0-18.0); LYMPHOCYTES # (AUTO) 1.6 (1.0-3.2); LYMPHOCYTES % 8.3 % (18.0-39.1); MEAN CORPUSCULAR HEMOGLOBIN 26.6 pg (28-32); MEAN CORPUSCULAR HGB CONC 30.2 g/dL (31-35); MEAN CORPUSCULAR VOLUME 88.2 fL (81-99); MONOCYTES # (AUTO) 1.5 (0.2-0.8); MONOCYTES % 8.2 % (4.4-11.3); NEUTROPHILS % 79.9 % (38.7-80.0); PLATELET COUNT 196 x10e3/uL (140-360); RED BLOOD COUNT 3.04 x10e6/uL (4.3-5.7); RED CELL DISTRIBUTION WIDTH 20.2 % (11.7-14.4)
[2017-04-01 06:06] LABS: ANION GAP 9.6 mmol/L (8-16); BLOOD UREA NITROGEN 22 mg/dL (7-26); BUN/CREATININE RATIO 24 (6-25); CALCIUM 7.3 mg/dL (8.4-10.2); CARBON DIOXIDE 23 mmol/L (22-29); CHLORIDE 123 mmol/L (98-107); CREATININE, SERUM 0.91 mg/dL (0.72-1.25); EST GLOMERULAR FILTRATION RATE > 60 ML/MIN (60-); GLUCOSE 90 mg/dL (74-118); MAGNESIUM 1.5 MG/DL (1.3-2.1); PHOSPHORUS 2.6 MG/DL (2.3-4.7); POTASSIUM 3.6 mmol/L (3.5-5.1); SODIUM 152 mmol/L (136-145)
--- NOTE | 2017-04-01 06:36 | Diagnostic Imaging Report ---
EXAM: CHEST SINGLE (PORTABLE), AP 1 view ORDER DATE: 04/01/2017 5:00 AM Time stamp on exam: 0558 hours INDICATION: CHF COMPARISON: AP view of the chest March 31, 2017 at 0525 hours FINDINGS: LINES/TUBES: Stable endotracheal tube, right internal jugular vein central line and nasal/orogastric tube LUNGS: Increasing edema and bibasilar atelectasis. PLEURA: Likely layering pleural effusions bilaterally. HEART AND MEDIASTINUM: Stable cardiac enlargement. BONES AND SOFT TISSUES: No acute findings. IMPRESSION: Developing pulmonary edema and increasing bilateral atelectasis. Signed by: Dr. Corina Zaragoza M.D. on 04/01/2017 6:33 AM
[2017-04-01] MEDS ORDERED: PHYTONADIONE 10 MG/ML AMP IV ONE (08:15)
[2017-04-01] MEDS ORDERED: PHYTONADIONE 10MG/ML 20 MG in SODIUM CHLORIDE 0.9% 50ML 50 ML IV ONE (09:00)
[2017-04-01] MEDS: METOPROLOL TARTRATE 25 MG TAB PO SCH ×2 (09:00→17:17)
[2017-04-01 13:30] LABS: BASOPHILS # (AUTO) 0.1 (0.0-0.1); BASOPHILS % 0.6 % (0.0-1.0); EOSINOPHILS # (AUTO) 0.8 (0.0-0.4); EOSINOPHILS % 4.1 % (0.0-6.0); HEMOGLOBIN 9.1 g/dL (14.0-18.0); LYMPHOCYTES # (AUTO) 1.9 (1.0-3.2); LYMPHOCYTES % 9.5 % (18.0-39.1); MEAN CORPUSCULAR HEMOGLOBIN 27.7 pg (28-32); MEAN CORPUSCULAR HGB CONC 31.4 g/dL (31-35); MEAN CORPUSCULAR VOLUME 88.1 fL (81-99); MONOCYTES # (AUTO) 1.6 (0.2-0.8); NEUTROPHILS % 77.3 % (38.7-80.0); PLATELET COUNT 216 x10e3/uL (140-360); RED BLOOD COUNT 3.29 x10e6/uL (4.3-5.7); RED CELL DISTRIBUTION WIDTH 20.2 % (11.7-14.4)
[2017-04-01 15:35] LABS: ABG HCO3 22 mmol/L (23-28); ABG PCO2 33 mmHg (41-51); ABG PH 7.43 (7.31-7.41); ABG PO2 56 mmHg (80-105)
[2017-04-01] MEDS ORDERED: DEXTROSE 5% IV SCH (15:45)
[2017-04-01] MEDS ORDERED: POTASSIUM CHLORIDE IV SCH (15:45)
[2017-04-01] MEDS ORDERED: POTASSIUM CHLORIDE 20MEQ/100ML 100 ML IV ONE (16:30)
--- NOTE | 2017-04-01 17:30 | Progress Note ---
DATE: April 01, 2017 PULMONARY MEDICINE PROGRESS NOTE SUBJECTIVE: Mr. Du was seen and examined at bedside. The patient continues to have steady progress. The patient given a chance to try to awaken. The patient with effort to try to come off ventilator. On weaning, there is good RSBI, although the patient with consistently large output of airway secretions. Chest x-ray with some mildly decreased edema. Precedex at 0.7 mcg per hour, versed 10 mg per hour, octreotide. were a 10 mL per hour, tolerated. There were 0.8 liters in, 4.1 liters out. One bowel movement. REVIEW OF SYSTEMS: Cannot get as he is on ventilator. OBJECTIVE VITAL SIGNS: Afebrile. Vital signs noted per electronic records. GENERAL: No distress, on ventilator at this time. LUNGS: Bilateral air entry is good, but moderate rhonchi bilaterally. ABDOMEN: Soft and nontender. EXTREMITIES: No large edema. LABORATORY DATA: Sodium 152, potassium 3.6, BUN 22, creatinine 0.9, white count 19, hematocrit 29, platelets 216,000. IMPRESSION 1. Acute respiratory failure, intubated. 2. Bilateral pneumonitis. 3. Additional fluid overload component. 4. Chronic smoker. 5. Hyperkalemia. 6. Dehydration. PLAN: Will give the patient a regress wean attempt. It is difficult to know if he will tolerate. He is borderline. Negative inspiratory force. Follow up ABGs. Consider extubation. Consider sedation as needed. If we do not extubate, increase tube feeds as needed. Greater than 30 minutes or direct care today, multiple evaluations and direct supervision of a high-risk wean. Will follow up closely. Job#: [id number]
--- NOTE | 2017-04-01 19:06 | Diagnostic Imaging Report ---
EXAMINATION: Chest, CHEST XRAY LINE PLACEMENT INDICATION: Chest pain COMPARISON: Portable chest 04/01/2017 FINDINGS: LINES: Left peripherally inserted central venous catheter with tip projecting over the expected region of the superior vena cava. Enteric feeding catheter is present with the tip projecting over the expected region of the gastric fundus. Heart: Normal cardiac silhouette. Vascular: The pulmonary vasculature is within normal limits. Atherosclerotic calcifications of the aortic arch. Mediastinum: No mediastinal, hilar, or axillary mass or lymphadenopathy. Lungs: No parenchymal mass. Airspace opacity in the left lung base. Pleura: No pleural effusion. No pneumothorax. Bones: No acute osseous abnormality. Degenerative changes of the thoracic spine. Soft tissues: Normal. Impression: Airspace opacity in the left lung base may represent a developing pneumonia. Signed by: Dr. Timothy Rice M.D. on 04/01/2017 7:02 PM
[2017-04-01 19:11] LABS: BASOPHILS # (AUTO) 0.1 (0.0-0.1); BASOPHILS % 0.5 % (0.0-1.0); EOSINOPHILS # (AUTO) 0.6 (0.0-0.4); EOSINOPHILS % 2.8 % (0.0-6.0); HEMATOCRIT 29.8 % (38.2-49.6); HEMOGLOBIN 9.2 g/dL (14.0-18.0); LYMPHOCYTES # (AUTO) 1.2 (1.0-3.2); LYMPHOCYTES % 5.3 % (18.0-39.1); MEAN CORPUSCULAR HEMOGLOBIN 27.3 pg (28-32); MEAN CORPUSCULAR HGB CONC 30.9 g/dL (31-35); MEAN CORPUSCULAR VOLUME 88.4 fL (81-99); MONOCYTES # (AUTO) 1.5 (0.2-0.8); NEUTROPHILS # (AUTO) 18.5 (2.1-6.9); NEUTROPHILS % 83.6 % (38.7-80.0); PLATELET COUNT 257 x10e3/uL (140-360); RED BLOOD COUNT 3.37 x10e6/uL (4.3-5.7); RED CELL DISTRIBUTION WIDTH 20.4 % (11.7-14.4)
[2017-04-01] MEDS ORDERED: ACETAMINOPHEN 325 MG TAB NG PRN (20:15)
[2017-04-01 20:17] LABS: EOSINOPHILS % (MANUAL) 1 % (0-7); LYMPHOCYTES % (MANUAL) 2 % (19-48); MONOCYTES % (MANUAL) 4 % (3.4-9.0); NEUTROPHILS % (MANUAL) 93 % (40-74)
[2017-04-01 20:18] LABS: POIKILOCYTOSIS SLIGHT; POLYCHROMASIA FEW
[2017-04-01 20:19] LABS: ANISOCYTOSIS SLIGHT; PLATELET ESTIMATE ADEQUATE; PLATELET MORPHOLOGY COMMENT FEW GIANT
[2017-04-01] MEDS: INSULIN DETEMIR 100 UNIT/ML PEN SQ SCH (20:33)
[2017-04-01] MEDS: METOPROLOL TARTRATE INJ 1 MG/ML VIAL IV PRN (20:34)
[2017-04-01] MEDS ORDERED: AZITHROMYCIN 500MG/NS 250 ML 250 ML IV ONE (23:45)
[2017-04-02] VITALS (32 sets, daily range): BP systolic 110–155; BP diastolic 54–92
[2017-04-02] MEDS: INSULIN REGULAR, HUMAN 100 UNIT/1 ML 3ML VIAL SQ SCH ×4 (00:06→18:00)
[2017-04-02] MEDS: OCTREOTIDE ACETATE 500 MCG in SODIUM CHLORIDE 0.9% 250ML 249 ML IV SCH ×2 (00:14→05:31)
[2017-04-02] MEDS: VALPROATE SOD IV SCH ×3 (00:14→17:28)
[2017-04-02] MEDS: SODIUM CHLORIDE 0.9% IV SCH ×3 (00:14→17:28)
[2017-04-02] MEDS: PANTOPRAZOL 40MG/SOD CHL 0.9% 50 ML IV SCH ×5 (00:34→21:27)
[2017-04-02] MEDS: DEXMEDETOMIDINE HCL 200 MCG in SODIUM CHLORIDE 0.9% 50ML 48 ML IV PRN (00:34)
[2017-04-02] MEDS: CEFEPIME HCL 1 GM VIAL IV SCH ×2 (02:15→14:33)
[2017-04-02] MEDS: ALBUTEROL SULF 0.083% NEB SOLN 3 ML NEB NEB SCH ×6 (03:05→23:00)
[2017-04-02] MEDS: IPRATROPIUM BROMIDE 0.02% 2.5 ML NEB NEB SCH ×6 (03:30→23:00)
[2017-04-02] MEDS: METRONIDAZOLE 500MG/NS 100ML 100 ML IV SCH ×4 (04:20→21:27)
[2017-04-02] MEDS: FUROSEMIDE INJ 10 MG/ML 4 ML VIAL IV SCH ×2 (05:31→14:33)
[2017-04-02 06:00] LABS: BASOPHILS # (AUTO) 0.1 (0.0-0.1); BASOPHILS % 0.5 % (0.0-1.0); EOSINOPHILS # (AUTO) 0.3 (0.0-0.4); EOSINOPHILS % 1.4 % (0.0-6.0); HEMOGLOBIN 8.7 g/dL (14.0-18.0); LYMPHOCYTES # (AUTO) 1.7 (1.0-3.2); LYMPHOCYTES % 8.7 % (18.0-39.1); MEAN CORPUSCULAR HEMOGLOBIN 27.3 pg (28-32); MEAN CORPUSCULAR HGB CONC 31.1 g/dL (31-35); MEAN CORPUSCULAR VOLUME 87.8 fL (81-99); MONOCYTES # (AUTO) 2.1 (0.2-0.8); MONOCYTES % 10.5 % (4.4-11.3); NEUTROPHILS # (AUTO) 15.3 (2.1-6.9); NEUTROPHILS % 78.3 % (38.7-80.0); PLATELET COUNT 288 x10e3/uL (140-360); RED BLOOD COUNT 3.19 x10e6/uL (4.3-5.7); RED CELL DISTRIBUTION WIDTH 20.2 % (11.7-14.4)
--- NOTE | 2017-04-02 06:29 | Diagnostic Imaging Report ---
EXAM: CHEST SINGLE (PORTABLE), AP 1 view ORDER DATE: 04/02/2017 5:00 AM Time stamp on exam: 0551 hours INDICATION: Pneumonia COMPARISON: AP view of the chest April 01 2017 FINDINGS: LINES/TUBES: None LUNGS: Pulmonary edema and bibasilar atelectasis PLEURA: No effusions or pneumothorax. HEART AND MEDIASTINUM: Stable enlargement BONES AND SOFT TISSUES: No acute findings. IMPRESSION: No interval change Signed by: Dr. Corina Zaragoza M.D. on 04/02/2017 6:26 AM
[2017-04-02 06:32] LABS: ALANINE AMINOTRANSFERASE 8 IU/L (0-55); ALBUMIN 2.6 g/dL (3.5-5.0); ALBUMIN/GLOBULIN RATIO 0.9 (0.8-2.0); ALKALINE PHOSPHATASE 53 IU/L (40-150); ANION GAP 11.9 mmol/L (8-16); BLOOD UREA NITROGEN 20 mg/dL (7-26); BUN/CREATININE RATIO 19 (6-25); CALCIUM 7.6 mg/dL (8.4-10.2); CARBON DIOXIDE 27 mmol/L (22-29); CHLORIDE 117 mmol/L (98-107); CREATININE, SERUM 1.03 mg/dL (0.72-1.25); EST GLOMERULAR FILTRATION RATE > 60 ML/MIN (60-); GLUCOSE 70 mg/dL (74-118); MAGNESIUM 1.4 MG/DL (1.3-2.1); SODIUM 153 mmol/L (136-145)
[2017-04-02 06:41] LABS: POTASSIUM 2.9 mmol/L (3.5-5.1)
[2017-04-02] MEDS ORDERED: POTASSIUM CHLORIDE 20MEQ/100ML 200 ML IV ONE ×2 (07:00→16:30)
[2017-04-02] MEDS: METOPROLOL TARTRATE INJ 1 MG/ML VIAL IV PRN (14:00)
[2017-04-02 14:43] LABS: AMYLASE 29 U/L (25-125); LIPASE 14 U/L (8-78)
[2017-04-02] MEDS: POTASSIUM CHL IV SCH (16:37)
[2017-04-02] MEDS: DEXTROSE 5% IV SCH (16:37)
[2017-04-02 16:39] LABS: HEMATOCRIT 28.9 % (38.2-49.6)
[2017-04-02] MEDS ORDERED: ACETAMINOPHEN 650 MG SUPP PR PRN (17:45)
[2017-04-02] MEDS: HYDROMORPHONE 2MG/ML INJ IV PRN ×2 (18:19→22:42)
[2017-04-02] MEDS: INSULIN DETEMIR 100 UNIT/ML PEN SQ SCH (20:14)
[2017-04-02] MEDS: ZIPRASIDONE 20 MG VIAL IM PRN (21:27)
[2017-04-02 22:01] LABS: HEMATOCRIT 28.1 % (38.2-49.6); HEMOGLOBIN 8.8 g/dL (14.0-18.0)
[2017-04-03] VITALS (23 sets, daily range): BP systolic 127–154; BP diastolic 73–104
--- NOTE | 2017-04-03 00:30 | Diagnostic Imaging Report ---
EXAM: ABDOMEN-1VIEW (KUB), portable supine ORDER DATE: 04/02/2017 11:00 PM Time stamp on exam: 2324 hours INDICATION: Nasogastric tube placement COMPARISON: AP view of the chest April 02, 2017 FINDINGS: See impression. IMPRESSION: Limited view of the chest and upper abdomen does not show a nasogastric tube. Recommend correlation for possible coiling within the hypopharynx. Signed by: Dr. Corina Zaragoza M.D. on 04/03/2017 12:26 AM
[2017-04-03] MEDS: SODIUM CHLORIDE 0.9% IV SCH ×3 (00:46→17:27)
[2017-04-03] MEDS: AZITHROMYCIN 500MG/NS 250 ML 250 ML IV SCH (00:46)
[2017-04-03] MEDS: VALPROATE SOD IV SCH ×3 (00:46→17:27)
[2017-04-03] MEDS: INSULIN REGULAR, HUMAN 100 UNIT/1 ML 3ML VIAL SQ SCH ×5 (01:06→23:35)
[2017-04-03] MEDS: OCTREOTIDE ACETATE 500 MCG in SODIUM CHLORIDE 0.9% 250ML 249 ML IV SCH ×3 (01:09→17:00)
[2017-04-03] MEDS: POTASSIUM CHL IV SCH ×2 (01:28→13:11)
[2017-04-03] MEDS: DEXTROSE 5% IV SCH ×2 (01:28→13:11)
[2017-04-03] MEDS: PANTOPRAZOL 40MG/SOD CHL 0.9% 50 ML IV SCH ×5 (01:29→23:03)
[2017-04-03] MEDS: IPRATROPIUM BROMIDE 0.02% 2.5 ML NEB NEB SCH ×6 (02:37→23:05)
[2017-04-03] MEDS: ALBUTEROL SULF 0.083% NEB SOLN 3 ML NEB NEB SCH ×6 (02:37→23:05)
[2017-04-03] MEDS: CEFEPIME HCL 1 GM VIAL IV SCH ×2 (03:16→14:24)
[2017-04-03] MEDS: METRONIDAZOLE 500MG/NS 100ML 100 ML IV SCH ×4 (03:16→22:15)
[2017-04-03] MEDS: HYDROMORPHONE 2MG/ML INJ IV PRN ×4 (03:17→20:00)
[2017-04-03 05:39] LABS: BASOPHILS # (AUTO) 0.1 (0.0-0.1); BASOPHILS % 0.5 % (0.0-1.0); EOSINOPHILS # (AUTO) 0.5 (0.0-0.4); EOSINOPHILS % 2.6 % (0.0-6.0); HEMATOCRIT 29.4 % (38.2-49.6); LYMPHOCYTES # (AUTO) 1.1 (1.0-3.2); LYMPHOCYTES % 5.8 % (18.0-39.1); MEAN CORPUSCULAR HGB CONC 30.6 g/dL (31-35); MEAN CORPUSCULAR VOLUME 88.3 fL (81-99); MONOCYTES % 10.5 % (4.4-11.3); NEUTROPHILS % 79.9 % (38.7-80.0); PLATELET COUNT 378 x10e3/uL (140-360); RED BLOOD COUNT 3.33 x10e6/uL (4.3-5.7); RED CELL DISTRIBUTION WIDTH 19.8 % (11.7-14.4)
[2017-04-03 05:48] LABS: ANION GAP 12.2 mmol/L (8-16); BLOOD UREA NITROGEN 15 mg/dL (7-26); BUN/CREATININE RATIO 17 (6-25); CALCIUM 7.8 mg/dL (8.4-10.2); CARBON DIOXIDE 30 mmol/L (22-29); CHLORIDE 112 mmol/L (98-107); CREATININE, SERUM 0.88 mg/dL (0.72-1.25); EST GLOMERULAR FILTRATION RATE > 60 ML/MIN (60-); GLUCOSE 160 mg/dL (74-118); MAGNESIUM 1.6 MG/DL (1.3-2.1); POTASSIUM 3.2 mmol/L (3.5-5.1); SODIUM 151 mmol/L (136-145)
--- NOTE | 2017-04-03 06:23 | Diagnostic Imaging Report ---
EXAM: CHEST SINGLE (PORTABLE), AP 1 view ORDER DATE: 04/03/2017 5:00 AM Time stamp on exam: 0459 hours INDICATION: CHF COMPARISON: AP view of the chest April 02, 2017 FINDINGS: LINES/TUBES: Stable position left approach PICC. Interval removal of nasal/orogastric tube. LUNGS: Pulmonary edema and bibasilar atelectasis. PLEURA: No effusions or pneumothorax. HEART AND MEDIASTINUM: Stable appearance given rotation. BONES AND SOFT TISSUES: No acute findings. IMPRESSION: Interval removal of nasal/orogastric tube, otherwise no significant interval change. Signed by: Dr. Corina Zaragoza M.D. on 04/03/2017 6:19 AM
--- NOTE | 2017-04-03 06:34 | Diagnostic Imaging Report ---
EXAM: ABDOMEN-1VIEW (KUB), supine ORDER DATE: 04/03/2017 5:22 AM Time stamp on exam: 0541 hours INDICATION: Dobbhoff tube placement COMPARISON: None FINDINGS: LINES/TUBES: Tip of Dobbhoff tube in expected location of the fundus of the stomach. BOWEL PATTERN: No evidence for obstruction. SOFT TISSUES: Surgical clips right upper quadrant of the abdomen. BONES: No acute findings. IMPRESSION: Dobbhoff tube tip in expected location of the fundus of the stomach. Signed by: Dr. Corina Zaragoza M.D. on 04/03/2017 6:30 AM
--- NOTE | 2017-04-03 07:23 | Consultation ---
DATE OF CONSULTATION: REASON FOR CONSULTATION: Pneumonia and sepsis. This patient who is a 76-year-old white male who was admitted on March 29, 2017. The patient who is 76 years old comes in with feeling weak for about 3 weeks, dizzy. The patient apparently collapsed and was found to be having GI bleed. He was also found in atrial fibrillation. He was agitated and intubated. Had an NG tube. Dr. Ovalle was consulted and Dr. Hines was consulted, and apparently his commercial account executive. The patient is currently in the intensive care unit off the vent, but confused. He does have a history of hypertension, congestive heart failure, atrial fibrillation. SURGICAL HISTORY: Cholecystectomy and appendectomy. SOCIAL HISTORY: No smoking, drug abuse or alcohol abuse. FAMILY HISTORY: Hypertension. REVIEW OF SYSTEMS: Patient is confused. Patient apparently has a history of smoking. LABORATORY DATA: Reviewed. His sputum is showing Staph aureus. Blood cultures negative. His white count today is 19.5, hemoglobin 8.7, hematocrit 28, and his platelets are 288,000. Sodium 153, potassium 2.9, creatinine 1.03. Liver enzymes within normal limits. PHYSICAL EXAMINATION GENERAL: He is alert and confused. Does not seem to be in acute distress. Off the vent now. VITALS: He is running fever of 100.7 that started recently. Stable. Heart rate 112, respirations 18, O2 sat 97%, blood pressure 143/77. HEENT: Normocephalic. Not icteric. NECK: Supple. CHEST: Few crackles bilateral coarse. CV: S1 and S1. S3, S4 or murmur. ABDOMEN: Soft. Bowel sounds present. No tenderness. EXTREMITIES: No edema. SKIN: No rashes. MEDICATIONS: He is currently on Atrovent, Proventil, metronidazole, Lasix, cefepime, insulin, Zofran, azithromycin. Patient had a CT of the abdomen and pelvis when he first came. It showed diverticulosis. Chest x-ray showed pulmonary edema. IMPRESSION 1. Fever, hospital-acquired: Etiology unclear. Recheck blood culture. 2. Altered mental status and confusion, metabolic. 3. Leukocytosis: White count 19.5. 4. Anemia. 5. Hypokalemia. 6. Hypernatremia. 7. Possible pneumonia versus fluid overload. I would suggest to continue with the same antibiotics for now until identified the Staph aureus in the sputum. Obtain procalcitonin level and lactic acid level to see if he is septic at the present time. Continue with the electrolyte correction and critical care support. Will follow. Job#: [id number] SCOTTY
--- NOTE | 2017-04-03 08:16 | Consultation ---
DATE OF CONSULTATION: ADDENDUM This patient is currently confused. I got more information. He is a 76 year old who had presented with lower GI bleed. He has cough, congestion for about 3 weeks. He was dizzy and near syncope probably because of his GI bleed. He was started on blood transfusion and apparently became agitated and jerky, and went into respiratory failure and had to be intubated. NG tube was placed. He had blood in the NG tube and aspiration. He has a history of atrial fibrillation. He was taking Pradaxa. Patient was intubated and is currently extubated, but remains confused. 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 Infectious disease was consulted today to make recommendation to his antibiotics. IMPRESSION 1. The patient has leukocytosis, probably reactive to the anemia and gastrointestinal loss. 2. Confusion, probably multifactorial. 3. History of atrial fibrillation. 4. Respiratory failure. 5. Diabetes mellitus. 6. Congestive heart failure. Continue with the current antibiotic for now. Will wait for the cultures. Recheck CBC. Recheck Chem panel. Will follow. Job#: [id number] SCOTTY
[2017-04-03] MEDS: FUROSEMIDE INJ 10 MG/ML 4 ML VIAL IV SCH ×2 (08:42→21:00)
[2017-04-03] MEDS: METOPROLOL TARTRATE 25 MG TAB PO SCH (08:43)
--- NOTE | 2017-04-03 11:27 | Progress Note ---
DATE: April 02, 2017 PULMONARY MEDICINE PROGRESS NOTE SUBJECTIVE: Mr. Du was seen and examined at bedside. He had a lot of altered mental status throughout the night. Some difficulty controlling behavior. He pulled out his NG tube. The 1.7 liters in, 7.5 liters out. He is still retaining secretions in his oropharynx. A 100% oxygen saturation on room air oxygen. On PPI drip and octreotide drip. REVIEW OF SYSTEMS: Cannot get reliably as he is altered. OBJECTIVE VITAL SIGNS: Afebrile. Vital signs per electronic records. Some tachycardia noted beyond 110, 120, and 130. GENERAL: In bed, delirious, oriented x 1. HEENT: Normocephalic, atraumatic. NECK: Supple. Throat midline. LUNGS: Bilateral air entry, few rhonchi. CARDIOVASCULAR: S1, S2. No murmurs, rubs, or gallops. ABDOMEN: Soft, nontender. EXTREMITIES: No clubbing or cyanosis. There is 1+ edema. INTEGUMENT: No rash. No purpura. LABORATORY DATA: Sodium 153, potassium 2.9, BUN 20, creatinine 1.0. White count 19, hematocrit 28, platelets 288. IMPRESSION AND PLAN 1. Acute respiratory failure, extubated. 2. Pneumonia. 3. Component of fluid overload. 4. Gastrointestinal bleeding, multiple gastritis and duodenal ulcer. 5. Encephalopathy, persisted. 6. Shock, hypovolemic and possibly septic, resolved. Continue antibiotics at this time. Patient will be on decreased Lasix. Furthermore, patient will get some more free water. Try to get NG tube and see if can feed him. Give more medicine for mentation. Follow up on antibiotics. Hopefully, he will get improved mentation with time. Patient remains in very critical status due to multiple high-risk conditions. Greater than 30 minutes of direct care given today. Job#: [id number] VAS
[2017-04-03] MEDS ORDERED: POTASSIUM CHLORIDE 20MEQ/15ML UDC NG NR (13:30)
[2017-04-03] MEDS ORDERED: VANCOMYCIN 1GM/NS 250 ML 250 ML IV ONE (13:45)
[2017-04-03] MEDS: ZIPRASIDONE 20 MG VIAL IM PRN (15:30)
[2017-04-03] MEDS: INSULIN DETEMIR 100 UNIT/ML PEN SQ SCH (21:00)
--- NOTE | 2017-04-03 21:24 | Progress Note ---
DATE: April 03, 2017 PULMONARY MEDICINE PROGRESS NOTE SUBJECTIVE: Mr. Du was seen and examined at the bedside. He continues to have very limited improvement. He still has significant altered mental status. He remains on PPI drip and octreotide drip. There is 98% oxygen saturation on 3 liters per minute nasal cannula. There is 2.5 liters in and 0.7 liters out. He remains on D5W IVF solution at 100 mL per hour and at 20 mL per hour. He does mobilize a lot and is quite difficult to maintain at one place. REVIEW OF SYSTEMS: No bleeding, no rash. OBJECTIVE VITAL SIGNS: Afebrile. Vital signs noted per electronic record. GENERAL: In no acute distress. Alert and calm. HEENT: Normocephalic, atraumatic. NECK: Supple. LUNGS: Bilateral air entry, a few rhonchi. CARDIOVASCULAR: S1 and S2, no murmurs, rubs or gallops. ABDOMEN: Soft and nontender. EXTREMITIES: No clubbing and no cyanosis. There is 1+ edema. INTEGUMENT: No rash, no purpura. LABORATORY DATA: Potassium 3.2, BUN 15, creatinine 0.9, white count 19, hematocrit 29, platelets 378,000. Magnesium is low at 0.6. RADIOGRAPHY: Chest x-ray revealed continued bilateral pulmonary infiltrates. IMPRESSION 1. Bilateral pneumonitis. 2. Concomitant fluid overload. 3. Admit with gastrointestinal bleed, likely gastric and duodenal ulcer disease. 4. Encephalopathy, multifactorial. 5. Hypokalemia. PLAN: Continue serial neurologic checks. Follow up closely. Octreotide PPI per GI. Continue medicines. For comfort and safety. Cheryl guevara Depakote schedule at q.8 h. Repeat LFTs soon. Continue to allow the patient to have toilet in his own airways. The patient is on NG tube feeds and these should continue. Job#: [id number] GH MANUEL
[2017-04-03] MEDS: METOPROLOL TARTRATE INJ 1 MG/ML VIAL IV PRN (23:09)
[2017-04-04] VITALS (27 sets, daily range): BP systolic 103–151; BP diastolic 57–112
[2017-04-04] MEDS: POTASSIUM CHL IV SCH ×3 (00:13→21:10)
[2017-04-04] MEDS: DEXTROSE 5% IV SCH ×3 (00:13→21:10)
[2017-04-04] MEDS: SODIUM CHLORIDE 0.9% IV SCH ×3 (00:14→21:04)
[2017-04-04] MEDS: AZITHROMYCIN 500MG/NS 250 ML 250 ML IV SCH ×2 (00:14→23:50)
[2017-04-04] MEDS: VALPROATE SOD IV SCH ×3 (00:14→21:04)
[2017-04-04] MEDS: HYDROMORPHONE 2MG/ML INJ IV PRN ×2 (00:14→03:33)
[2017-04-04] MEDS: ALBUTEROL SULF 0.083% NEB SOLN 3 ML NEB NEB SCH ×6 (02:20→23:20)
[2017-04-04] MEDS: IPRATROPIUM BROMIDE 0.02% 2.5 ML NEB NEB SCH ×6 (02:20→23:20)
[2017-04-04] MEDS: CEFEPIME HCL 1 GM VIAL IV SCH ×2 (02:33→15:00)
[2017-04-04] MEDS: OCTREOTIDE ACETATE 500 MCG in SODIUM CHLORIDE 0.9% 250ML 249 ML IV SCH ×3 (03:00→20:06)
[2017-04-04] MEDS: METRONIDAZOLE 500MG/NS 100ML 100 ML IV SCH ×4 (04:00→21:54)
[2017-04-04 05:26] LABS: BASOPHILS # (AUTO) 0.1 (0.0-0.1); BASOPHILS % 0.5 % (0.0-1.0); EOSINOPHILS # (AUTO) 0.3 (0.0-0.4); EOSINOPHILS % 1.9 % (0.0-6.0); HEMATOCRIT 30.8 % (38.2-49.6); HEMOGLOBIN 9.4 g/dL (14.0-18.0); LYMPHOCYTES # (AUTO) 0.9 (1.0-3.2); LYMPHOCYTES % 5.1 % (18.0-39.1); MEAN CORPUSCULAR HEMOGLOBIN 26.7 pg (28-32); MEAN CORPUSCULAR HGB CONC 30.5 g/dL (31-35); MEAN CORPUSCULAR VOLUME 87.5 fL (81-99); MONOCYTES # (AUTO) 1.8 (0.2-0.8); MONOCYTES % 10.2 % (4.4-11.3); NEUTROPHILS # (AUTO) 14.4 (2.1-6.9); NEUTROPHILS % 81.5 % (38.7-80.0); PLATELET COUNT 452 x10e3/uL (140-360); RED BLOOD COUNT 3.52 x10e6/uL (4.3-5.7); RED CELL DISTRIBUTION WIDTH 19.7 % (11.7-14.4)
[2017-04-04] MEDS: PANTOPRAZOL 40MG/SOD CHL 0.9% 50 ML IV SCH ×5 (05:42→22:09)
[2017-04-04] MEDS: INSULIN REGULAR, HUMAN 100 UNIT/1 ML 3ML VIAL SQ SCH ×4 (05:42→23:56)
[2017-04-04 05:45] LABS: ALANINE AMINOTRANSFERASE 8 IU/L (0-55); ALBUMIN 2.5 g/dL (3.5-5.0); ALBUMIN/GLOBULIN RATIO 0.8 (0.8-2.0); ALKALINE PHOSPHATASE 59 IU/L (40-150); ANION GAP 14.1 mmol/L (8-16); BLOOD UREA NITROGEN 14 mg/dL (7-26); BUN/CREATININE RATIO 16 (6-25); CALCIUM 7.4 mg/dL (8.4-10.2); CARBON DIOXIDE 30 mmol/L (22-29); CHLORIDE 106 mmol/L (98-107); CREATININE, SERUM 0.88 mg/dL (0.72-1.25); EST GLOMERULAR FILTRATION RATE > 60 ML/MIN (60-); GLUCOSE 146 mg/dL (74-118); MAGNESIUM 1.5 MG/DL (1.3-2.1); PHOSPHORUS 2.4 MG/DL (2.3-4.7); POTASSIUM 3.1 mmol/L (3.5-5.1); SODIUM 147 mmol/L (136-145)
--- NOTE | 2017-04-04 06:43 | Diagnostic Imaging Report ---
EXAMINATION: CHEST SINGLE (PORTABLE) INDICATION: Pneumonia. COMPARISON: 04/03/2017 FINDINGS: TUBES and LINES: Interval placement of Dobbhoff tube with distal tip beyond the films limits. Left upper extremity PICC line in good position with tip at the SVC. LUNGS: Interval decrease in the interlobular septi thickening and patchy airspace opacities. Lungs are clear. There is mild prominence of the central pulmonary vasculature, consistent with pulmonary venous congestion. PLEURA: No pleural effusion or pneumothorax. HEART AND MEDIASTINUM: Cardiac size is moderately enlarged. There are atherosclerotic calcifications within the aorta. BONES AND SOFT TISSUES: No acute osseous lesion. Soft tissues are unremarkable. UPPER ABDOMEN: No free air under the diaphragm. IMPRESSION: 1. Resolution of interstitial edema and atelectasis. 2. No evidence of developing pneumonia. 3. Tubes and lines are in good position. Signed by: Dr. Alexei Wayne M.D. on 04/04/2017 6:39 AM
[2017-04-04] MEDS: METOPROLOL TARTRATE 25 MG TAB PO SCH ×2 (09:00→16:46)
[2017-04-04] MEDS: FUROSEMIDE INJ 10 MG/ML 4 ML VIAL IV SCH ×2 (09:00→21:04)
[2017-04-04] MEDS ORDERED: POTASSIUM CHLORIDE 20MEQ/15ML UDC NG ONE ×2 (09:00→14:15)
--- NOTE | 2017-04-04 10:51 | Progress Note ---
DATE: April 04, 2017 PULMONARY MEDICINE PROGRESS NOTE SUBJECTIVE: Mr. Du was seen and examined at bedside. He continues to have line encephalopathy. The patient remains with difficulty due to his attempts to keep pulling on his lines including NG tube. The patient remains hemodynamically stable right now. He is probably expectorating reasonably well beyond his pharynx. Otherwise, no gross GI bleeding recorded. REVIEW OF SYSTEMS: Cannot get reliably as he is altered. OBJECTIVE VITAL SIGNS: Afebrile. Vital signs noted per electronic record. GENERAL: No acute distress. He does look quite ill. He is a little bit restless. HEENT: Normocephalic, atraumatic. NECK: Supple. Throat is midline. LUNGS: Bilateral air entry, a few rhonchi. CARDIOVASCULAR: S1 and S2. No murmurs, rubs or gallops. ABDOMEN: Soft and nontender. EXTREMITIES: No clubbing and no cyanosis. There is 1+ edema to the legs. INTEGUMENT: No rash, no purpura. LABORATORY DATA: Potassium 3.1, BUN 14, creatinine 0.9, 18 white count, 31 hematocrit, 452 platelets. IMPRESSION AND PLAN 1. Pneumonia, possible methicillin-resistant Staphylococcus aureus pneumonitis. 2. Fluid overload, improved. 3. Admit with gastrointestinal bleed, duodenal and gastric ulcers presumed, with residual clots seen in gastric fundus on esophagogastroduodenoscopy, which were not mobilized. 4. Shock, resolved. 5. Acute respiratory failure, resolved. 6. Encephalopathy. Continue current treatment at this time. Antibiotics per the infectious disease expert. The patient remains on octreotide as well as proton pump inhibitor intravenously. As the GI risk goes down, these will be stopped. Will follow along closely. Continue medicines for behavior. The patient when definitively taking any oral medicines will be able to convert some of the medicines to the GI tract. Job#: [id number]
[2017-04-04] MEDS: ONDANSETRON HCL INJ 2 MG/ML VIAL IV PRN (13:02)
[2017-04-04] MEDS: INSULIN DETEMIR 100 UNIT/ML PEN SQ SCH (21:03)
[2017-04-05] VITALS (17 sets, daily range): BP systolic 108–151; BP diastolic 65–84
[2017-04-05] MEDS: PANTOPRAZOL 40MG/SOD CHL 0.9% 50 ML IV SCH ×4 (02:25→20:33)
[2017-04-05] MEDS: CEFEPIME HCL 1 GM VIAL IV SCH ×2 (03:02→15:40)
[2017-04-05] MEDS: ALBUTEROL SULF 0.083% NEB SOLN 3 ML NEB NEB SCH ×6 (03:10→22:50)
[2017-04-05] MEDS: IPRATROPIUM BROMIDE 0.02% 2.5 ML NEB NEB SCH ×5 (03:10→22:50)
[2017-04-05] MEDS: METRONIDAZOLE 500MG/NS 100ML 100 ML IV SCH ×4 (04:30→22:16)
[2017-04-05] MEDS: INSULIN REGULAR, HUMAN 100 UNIT/1 ML 3ML VIAL SQ SCH ×3 (05:56→16:51)
[2017-04-05 06:01] LABS: BASOPHILS # (AUTO) 0.1 (0.0-0.1); BASOPHILS % 0.3 % (0.0-1.0); EOSINOPHILS # (AUTO) 0.5 (0.0-0.4); EOSINOPHILS % 3.4 % (0.0-6.0); HEMATOCRIT 32.1 % (38.2-49.6); HEMOGLOBIN 9.6 g/dL (14.0-18.0); LYMPHOCYTES # (AUTO) 1.6 (1.0-3.2); LYMPHOCYTES % 10.4 % (18.0-39.1); MEAN CORPUSCULAR HEMOGLOBIN 26.2 pg (28-32); MEAN CORPUSCULAR HGB CONC 29.9 g/dL (31-35); MEAN CORPUSCULAR VOLUME 87.7 fL (81-99); MONOCYTES # (AUTO) 1.8 (0.2-0.8); MONOCYTES % 11.5 % (4.4-11.3); NEUTROPHILS # (AUTO) 11.5 (2.1-6.9); NEUTROPHILS % 73.9 % (38.7-80.0); PLATELET COUNT 464 x10e3/uL (140-360); RED BLOOD COUNT 3.66 x10e6/uL (4.3-5.7); RED CELL DISTRIBUTION WIDTH 19.3 % (11.7-14.4)
[2017-04-05 06:19] LABS: ANION GAP 13.6 mmol/L (8-16); BLOOD UREA NITROGEN 17 mg/dL (7-26); BUN/CREATININE RATIO 18 (6-25); CALCIUM 7.9 mg/dL (8.4-10.2); CARBON DIOXIDE 30 mmol/L (22-29); CHLORIDE 106 mmol/L (98-107); CREATININE, SERUM 0.92 mg/dL (0.72-1.25); EST GLOMERULAR FILTRATION RATE > 60 ML/MIN (60-); GLUCOSE 99 mg/dL (74-118); MAGNESIUM 1.7 MG/DL (1.3-2.1); PHOSPHORUS 2.7 MG/DL (2.3-4.7); POTASSIUM 3.6 mmol/L (3.5-5.1); SODIUM 146 mmol/L (136-145)
--- NOTE | 2017-04-05 06:42 | Diagnostic Imaging Report ---
EXAMINATION: CHEST SINGLE (PORTABLE) INDICATION: Pneumonia. COMPARISON: 04/04/2017 FINDINGS: TUBES and LINES: Left upper extremity PICC line again noted with tip along the left innominate vein. The Dobbhoff tube has been removed LUNGS: Lungs are not well inflated. Lungs are clear. There is mild prominence of the central pulmonary vasculature, consistent with pulmonary venous congestion. PLEURA: No pleural effusion or pneumothorax. HEART AND MEDIASTINUM: Cardiac size is mildly enlarged. There are atherosclerotic calcifications within the aorta. BONES AND SOFT TISSUES: No acute osseous lesion. Soft tissues are unremarkable. UPPER ABDOMEN: No free air under the diaphragm. IMPRESSION: No acute thoracic abnormality. Signed by: Dr. Alexei Wayne M.D. on 04/05/2017 6:38 AM
[2017-04-05 07:07] LABS: EOSINOPHILS % (MANUAL) 3 % (0-7); LYMPHOCYTES % (MANUAL) 7 % (19-48); MONOCYTES % (MANUAL) 8 % (3.4-9.0); NEUTROPHILS % (MANUAL) 81 % (40-74)
[2017-04-05 07:08] LABS: ANISOCYTOSIS MODERATE; HYPOCHROMASIA MODERATE; PLATELET ESTIMATE SLIGHTLY INCREASED; PLATELET MORPHOLOGY COMMENT FEW GIANT; POIKILOCYTOSIS SLIGHT; RBC MORPHOLOGY COMMENT ABNORMAL
[2017-04-05] MEDS: OCTREOTIDE ACETATE 500 MCG in SODIUM CHLORIDE 0.9% 250ML 249 ML IV SCH ×2 (08:26→20:33)
[2017-04-05] MEDS: SODIUM CHLORIDE 0.9% IV SCH (08:28)
[2017-04-05] MEDS: VALPROATE SOD IV SCH (08:28)
[2017-04-05] MEDS: METOPROLOL TARTRATE 25 MG TAB PO SCH ×2 (08:36→15:53)
[2017-04-05] MEDS: FUROSEMIDE INJ 10 MG/ML 4 ML VIAL IV SCH ×2 (08:43→22:16)
[2017-04-05] MEDS: DEXTROSE 5% IV SCH (10:27)
[2017-04-05] MEDS: POTASSIUM CHL IV SCH (10:27)
--- NOTE | 2017-04-05 14:03 | Operative Report ---
DATE OF PROCEDURE: April 05, 2017 REFERRING PHYSICIAN: Dr. Srinath Quevedo. PROCEDURE PERFORMED: Esophagogastroduodenoscopy. INDICATIONS FOR PROCEDURE: Patient is status post upper GI bleed. Blood and blood clots were noted in the fundus on the previous EGD. A repeat EGD is being carried out to re-evaluate the fundus. MEDICATION: Patient was done under MAC. Please see anesthesiologist's note. PROCEDURE: With the patient in the left lateral decubitus position, the flexible fiberoptic Olympus gastroscope was introduced into the esophagus under direct visualization without any difficulty. The esophagus appeared to be within normal limits. The scope was then advanced with ease into the stomach, traversing a moderate-sized hiatal hernia. Mucosa overlying the antrum and the body revealed some patchy intense erythema and mild to moderate edema, and biopsies were obtained and sent to stain for H. pylori. Pylorus appeared to be of normal contour and shape, was intubated with ease, and the scope was advanced all the way to the 2nd portion of the duodenum. The scope was then withdrawn slowly, and an approximately 1 cm duodenal ulcer was noted in the distal bulb without active bleeding or stigmata of recent hemorrhage. The scope was then withdrawn back into the stomach and retroflexed, and the mucosa overlying the fundus and the cardia appeared to be within normal limits. The scope was then straightened out. The stomach was decompressed. The scope was subsequently withdrawn. Patient tolerated the procedure well. IMPRESSION: 1. Normal esophagus. 2. Moderate-sized hiatal hernia. 3. Gastritis biopsied. Biopsies sent to stain for H. pylori. 4. Duodenal bulb ulcer approximately 1 cm without active bleeding. PLAN: Follow up histology. Continue current therapy. Job#: [id number] EV cc:SRINATH QUEVEDO DO
[2017-04-05] MEDS ORDERED: PROPOFOL IV EMULSION 10 MG/ML 20 ML VIAL ONE (17:01)
[2017-04-05] MEDS ORDERED: LIDOCAINE HCL 2% LOCAL INJ 5 ML SDV VIAL INJ ONE (17:01)
[2017-04-05] MEDS: INSULIN DETEMIR 100 UNIT/ML PEN SQ SCH (21:00)
[2017-04-06] MEDS: PANTOPRAZOL 40MG/SOD CHL 0.9% 50 ML IV SCH ×4 (00:45→15:00)
[2017-04-06] MEDS: IPRATROPIUM BROMIDE 0.02% 2.5 ML NEB NEB SCH ×6 (02:38→23:10)
[2017-04-06] MEDS: ALBUTEROL SULF 0.083% NEB SOLN 3 ML NEB NEB SCH ×6 (02:39→23:10)
[2017-04-06] MEDS: AZITHROMYCIN 500MG/NS 250 ML 250 ML IV SCH ×2 (02:45→23:36)
[2017-04-06] MEDS: POTASSIUM CHL IV SCH ×2 (02:46→17:57)
[2017-04-06] MEDS: DEXTROSE 5% IV SCH ×2 (02:46→17:57)
[2017-04-06] MEDS: CEFEPIME HCL 1 GM VIAL IV SCH ×2 (04:45→15:00)
[2017-04-06] MEDS: METRONIDAZOLE 500MG/NS 100ML 100 ML IV SCH ×4 (04:49→21:31)
[2017-04-06] MEDS: OCTREOTIDE ACETATE 500 MCG in SODIUM CHLORIDE 0.9% 250ML 249 ML IV SCH ×2 (05:22→15:00)
[2017-04-06 06:19] LABS: BASOPHILS # (AUTO) 0.1 (0.0-0.1); BASOPHILS % 0.5 % (0.0-1.0); EOSINOPHILS # (AUTO) 0.6 (0.0-0.4); EOSINOPHILS % 4.2 % (0.0-6.0); HEMATOCRIT 32.1 % (38.2-49.6); HEMOGLOBIN 9.7 g/dL (14.0-18.0); LYMPHOCYTES # (AUTO) 1.5 (1.0-3.2); LYMPHOCYTES % 10.4 % (18.0-39.1); MEAN CORPUSCULAR HEMOGLOBIN 26.4 pg (28-32); MEAN CORPUSCULAR HGB CONC 30.2 g/dL (31-35); MEAN CORPUSCULAR VOLUME 87.2 fL (81-99); MONOCYTES # (AUTO) 1.5 (0.2-0.8); MONOCYTES % 10.7 % (4.4-11.3); NEUTROPHILS # (AUTO) 10.7 (2.1-6.9); NEUTROPHILS % 73.7 % (38.7-80.0); PLATELET COUNT 599 x10e3/uL (140-360); RED BLOOD COUNT 3.68 x10e6/uL (4.3-5.7); RED CELL DISTRIBUTION WIDTH 18.7 % (11.7-14.4)
[2017-04-06 06:46] LABS: ANION GAP 13.7 mmol/L (8-16); BLOOD UREA NITROGEN 16 mg/dL (7-26); BUN/CREATININE RATIO 18 (6-25); CALCIUM 7.8 mg/dL (8.4-10.2); CARBON DIOXIDE 30 mmol/L (22-29); CHLORIDE 101 mmol/L (98-107); CREATININE, SERUM 0.91 mg/dL (0.72-1.25); EST GLOMERULAR FILTRATION RATE > 60 ML/MIN (60-); GLUCOSE 158 mg/dL (74-118); MAGNESIUM 1.6 MG/DL (1.3-2.1); POTASSIUM 3.7 mmol/L (3.5-5.1); SODIUM 141 mmol/L (136-145)
--- NOTE | 2017-04-06 06:51 | Diagnostic Imaging Report ---
EXAMINATION: CHEST SINGLE (PORTABLE) INDICATION: Pneumonia COMPARISON: 04/05/2017 FINDINGS: TUBES and LINES: Left upper extremity PICC line again noted with tip along the left innominate vein. The Dobbhoff tube has been removed LUNGS: Lungs are not well inflated. Lungs are clear. There is mild prominence of the central pulmonary vasculature, consistent with pulmonary venous congestion. PLEURA: No pleural effusion or pneumothorax. HEART AND MEDIASTINUM: Cardiac size is mildly enlarged. There are atherosclerotic calcifications within the aorta. BONES AND SOFT TISSUES: No acute osseous lesion. Soft tissues are unremarkable. UPPER ABDOMEN: No free air under the diaphragm. IMPRESSION: No acute thoracic abnormality. Stable chest. Signed by: Dr. Alexei Wayne M.D. on 04/06/2017 6:48 AM
[2017-04-06] MEDS: INSULIN REGULAR, HUMAN 100 UNIT/1 ML 3ML VIAL SQ SCH ×5 (07:30→21:00)
[2017-04-06 07:51] VITALS: BP 120/70
[2017-04-06 07:52] VITALS: BP 120/70
[2017-04-06] MEDS: FUROSEMIDE INJ 10 MG/ML 4 ML VIAL IV SCH ×2 (09:14→20:03)
[2017-04-06] MEDS: METOPROLOL TARTRATE 25 MG TAB PO SCH ×2 (09:15→16:03)
[2017-04-06 12:04] VITALS: BP 127/72
[2017-04-06 16:00] VITALS: BP 113/75
[2017-04-06] MEDS ORDERED: GUAIFENESIN/DEXTROMETHORPHAN LIQD 5 ML UDC PO PRN (16:45)
[2017-04-06] MEDS: PANTOPRAZOLE SOD 40 MG TABEC PO SCH (17:51)
[2017-04-06 20:00] VITALS: BP 120/72
[2017-04-06] MEDS: INSULIN DETEMIR 100 UNIT/ML PEN SQ SCH (21:00)
[2017-04-07] MEDS: IPRATROPIUM BROMIDE 0.02% 2.5 ML NEB NEB SCH ×6 (02:44→22:55)
[2017-04-07] MEDS: ALBUTEROL SULF 0.083% NEB SOLN 3 ML NEB NEB SCH ×6 (02:44→22:55)
[2017-04-07] MEDS: CEFEPIME HCL 1 GM VIAL IV SCH ×2 (03:00→15:12)
[2017-04-07] MEDS: METRONIDAZOLE 500MG/NS 100ML 100 ML IV SCH ×4 (04:00→22:43)
[2017-04-07 06:26] LABS: BASOPHILS # (AUTO) 0.1 (0.0-0.1); BASOPHILS % 0.6 % (0.0-1.0); EOSINOPHILS # (AUTO) 0.7 (0.0-0.4); EOSINOPHILS % 5.4 % (0.0-6.0); HEMATOCRIT 27.3 % (38.2-49.6); HEMOGLOBIN 8.4 g/dL (14.0-18.0); LYMPHOCYTES # (AUTO) 1.5 (1.0-3.2); LYMPHOCYTES % 11.4 % (18.0-39.1); MEAN CORPUSCULAR HEMOGLOBIN 26.4 pg (28-32); MEAN CORPUSCULAR HGB CONC 30.8 g/dL (31-35); MEAN CORPUSCULAR VOLUME 85.8 fL (81-99); MONOCYTES # (AUTO) 1.5 (0.2-0.8); MONOCYTES % 11.7 % (4.4-11.3); NEUTROPHILS # (AUTO) 9.2 (2.1-6.9); NEUTROPHILS % 70.4 % (38.7-80.0); PLATELET COUNT 589 x10e3/uL (140-360); RED BLOOD COUNT 3.18 x10e6/uL (4.3-5.7); RED CELL DISTRIBUTION WIDTH 18.6 % (11.7-14.4)
[2017-04-07 07:45] VITALS: BP 134/73
[2017-04-07] MEDS: INSULIN REGULAR, HUMAN 100 UNIT/1 ML 3ML VIAL SQ SCH ×4 (08:19→21:54)
[2017-04-07] MEDS: FUROSEMIDE INJ 10 MG/ML 4 ML VIAL IV SCH ×2 (08:20→20:53)
[2017-04-07] MEDS: PANTOPRAZOLE SOD 40 MG TABEC PO SCH ×2 (08:21→17:43)
[2017-04-07] MEDS: METOPROLOL TARTRATE 25 MG TAB PO SCH ×2 (08:21→17:44)
[2017-04-07] MEDS: DEXTROSE 5% IV SCH (08:22)
[2017-04-07] MEDS: POTASSIUM CHL IV SCH (08:22)
[2017-04-07 13:49] VITALS: BP 134/73
[2017-04-07 17:30] VITALS: BP 149/83
[2017-04-07 20:00] VITALS: BP 133/70
[2017-04-07] MEDS: INSULIN DETEMIR 100 UNIT/ML PEN SQ SCH (21:54)
[2017-04-08] VITALS: BP 132/70
[2017-04-08] MEDS: AZITHROMYCIN 500MG/NS 250 ML 250 ML IV SCH (00:40)
[2017-04-08] MEDS: ALBUTEROL SULF 0.083% NEB SOLN 3 ML NEB NEB SCH ×6 (02:10→22:45)
[2017-04-08] MEDS: IPRATROPIUM BROMIDE 0.02% 2.5 ML NEB NEB SCH ×6 (02:10→22:45)
[2017-04-08] MEDS: DEXTROSE 5% IV SCH ×2 (02:25→12:41)
[2017-04-08] MEDS: POTASSIUM CHL IV SCH ×2 (02:25→12:41)
[2017-04-08] MEDS: CEFEPIME HCL 1 GM VIAL IV SCH ×2 (03:23→16:07)
[2017-04-08 04:00] VITALS: BP 132/69
[2017-04-08] MEDS: METRONIDAZOLE 500MG/NS 100ML 100 ML IV SCH ×2 (04:59→10:18)
[2017-04-08 06:12] LABS: HEMATOCRIT 29.6 % (38.2-49.6); HEMOGLOBIN 9.1 g/dL (14.0-18.0)
[2017-04-08] MEDS: INSULIN REGULAR, HUMAN 100 UNIT/1 ML 3ML VIAL SQ SCH ×4 (07:30→21:48)
[2017-04-08 08:00] VITALS: BP 127/71
[2017-04-08] MEDS: FUROSEMIDE INJ 10 MG/ML 4 ML VIAL IV SCH (09:00)
[2017-04-08] MEDS: METOPROLOL TARTRATE 25 MG TAB PO SCH ×2 (09:00→17:14)
[2017-04-08] MEDS: PANTOPRAZOLE SOD 40 MG TABEC PO SCH ×2 (09:19→17:14)
--- NOTE | 2017-04-08 12:03 | Diagnostic Imaging Report ---
Examination: Single AP view of the chest. COMPARISON: None. INDICATION: Anemia, bronchitis DISCUSSION: Lines/tubes: Left upper extremity PICC tube. Lungs: No focal pneumonia. Pleura: No pleural effusion or pneumothorax. Heart and mediastinum: The heart and the mediastinum are unremarkable. Bones and soft tissues: No acute bony abnormalities. IMPRESSION: 1. No acute cardiopulmonary abnormalities. Signed by: Dr. Sammy Sneed M.D. on 04/08/2017 12:00 PM
[2017-04-08 12:20] VITALS: BP 119/68
[2017-04-08 15:02] LABS: INR 1.13; PARTIAL THROMBOPLASTIN TIME 23.4 seconds (23.8-35.5); PROTHROMBIN TIME 13.6 seconds (11.9-14.5)
--- NOTE | 2017-04-08 15:21 | Progress Note ---
DATE: April 08, 2017 PULMONARY MEDICINE PROGRESS NOTE SUBJECTIVE: Mr. Du was seen and examined at bedside. Chest x-ray done today was normal. He continues to walk a little bit more. He is able to walk in the room. Mild dizziness only. Patient still with tolerance of his GI feeds. No gross bleeding. REVIEW OF SYSTEMS: No headache. No rash. OBJECTIVE VITAL SIGNS: Afebrile. Vital signs noted per electronic record. GENERAL: No acute distress. Alert and calm. HEENT: Normocephalic, atraumatic. NECK: Supple. Throat is midline. LUNGS: Bilateral air entry, a few rare rhonchi. CARDIOVASCULAR: S1 and S2. No murmurs, rubs or gallops. ABDOMEN: Soft and nontender. EXTREMITIES: No clubbing and no cyanosis. There is trace to 1+ edema, mainly venous stasis changes. IMPRESSION AND PLAN 1. Gastrointestinal bleed, likely secondary to duodenal ulcer. 2. Weakness. 3. Respiratory failure, resolved. 4. Pneumonia, aspiration kind. Continue current therapy. Continue smoking cessation and alcohol cessation. Continue to mobilize the patient. PT and OT. He may need mcc or other rehab after he is discharged. We will follow along closely. Job#: [id number]
[2017-04-08 16:17] VITALS: BP 129/83
[2017-04-08] MEDS: WARFARIN SOD 5 MG TAB PO SCH (17:14)
[2017-04-08] MEDS ORDERED: SENNA-S TABLET PO PRN (18:30)
[2017-04-08 20:00] VITALS: BP 129/73
[2017-04-08] MEDS: INSULIN DETEMIR 100 UNIT/ML PEN SQ SCH (21:49)
[2017-04-09] VITALS (7 sets, daily range): BP systolic 116–138; BP diastolic 64–82
[2017-04-09] MEDS: AZITHROMYCIN 500MG/NS 250 ML 250 ML IV SCH (00:17)
[2017-04-09] MEDS: ALBUTEROL SULF 0.083% NEB SOLN 3 ML NEB NEB SCH ×6 (04:15→23:00)
[2017-04-09] MEDS: IPRATROPIUM BROMIDE 0.02% 2.5 ML NEB NEB SCH ×6 (04:15→23:00)
[2017-04-09] MEDS: CEFEPIME HCL 1 GM VIAL IV SCH ×2 (04:36→15:18)
[2017-04-09] MEDS: POTASSIUM CHL IV SCH (04:37)
[2017-04-09] MEDS: DEXTROSE 5% IV SCH (04:37)
[2017-04-09 07:33] LABS: BASOPHILS # (AUTO) 0.1 (0.0-0.1); BASOPHILS % 0.6 % (0.0-1.0); EOSINOPHILS # (AUTO) 0.5 (0.0-0.4); EOSINOPHILS % 3.4 % (0.0-6.0); HEMATOCRIT 32.3 % (38.2-49.6); HEMOGLOBIN 9.7 g/dL (14.0-18.0); LYMPHOCYTES # (AUTO) 1.3 (1.0-3.2); LYMPHOCYTES % 9.9 % (18.0-39.1); MEAN CORPUSCULAR HEMOGLOBIN 26.1 pg (28-32); MEAN CORPUSCULAR VOLUME 86.8 fL (81-99); MONOCYTES # (AUTO) 1.4 (0.2-0.8); MONOCYTES % 10.3 % (4.4-11.3); NEUTROPHILS # (AUTO) 10.1 (2.1-6.9); NEUTROPHILS % 75.4 % (38.7-80.0); PLATELET COUNT 657 x10e3/uL (140-360); RED BLOOD COUNT 3.72 x10e6/uL (4.3-5.7); RED CELL DISTRIBUTION WIDTH 18.9 % (11.7-14.4)
[2017-04-09 08:04] LABS: ALANINE AMINOTRANSFERASE 9 IU/L (0-55); ALBUMIN 2.9 g/dL (3.5-5.0); ALBUMIN/GLOBULIN RATIO 0.8 (0.8-2.0); ALKALINE PHOSPHATASE 55 IU/L (40-150); ANION GAP 12.4 mmol/L (8-16); BLOOD UREA NITROGEN 12 mg/dL (7-26); BUN/CREATININE RATIO 13 (6-25); CALCIUM 8.6 mg/dL (8.4-10.2); CARBON DIOXIDE 28 mmol/L (22-29); CHLORIDE 99 mmol/L (98-107); CREATININE, SERUM 0.89 mg/dL (0.72-1.25); EST GLOMERULAR FILTRATION RATE > 60 ML/MIN (60-); GLUCOSE 199 mg/dL (74-118); POTASSIUM 3.4 mmol/L (3.5-5.1); SODIUM 136 mmol/L (136-145)
[2017-04-09 08:13] LABS: INR 1.15; PROTHROMBIN TIME 13.8 seconds (11.9-14.5)
[2017-04-09] MEDS: INSULIN REGULAR, HUMAN 100 UNIT/1 ML 3ML VIAL SQ SCH ×4 (08:30→20:50)
[2017-04-09 08:38] LABS: FOLATE 18.6 ng/mL (7.0-15.4)
[2017-04-09 08:39] LABS: FERRITIN 33.32 ng/mL (21.81-274.66); FREE T4 (FREE THYROXINE) 1.19 ng/dL (0.9-1.8); THYROID STIMULATING HORMONE 1.508 uIU/mL (0.350-4.940)
[2017-04-09] MEDS: PANTOPRAZOLE SOD 40 MG TABEC PO SCH ×2 (08:41→17:12)
[2017-04-09] MEDS: METOPROLOL TARTRATE 25 MG TAB PO SCH ×2 (08:41→17:12)
[2017-04-09] MEDS: FUROSEMIDE INJ 10 MG/ML 4 ML VIAL IV SCH (09:24)
[2017-04-09] MEDS ORDERED: POTASSIUM CHLORIDE 20 MEQ TAB CR PO ONE (11:30)
--- NOTE | 2017-04-09 14:29 | Progress Note ---
DATE: April 09, 2017 PULMONARY MEDICINE PROGRESS NOTE SUBJECTIVE: Mr. Du was seen and examined at bedside. He continues to have slow progress. He is stronger slowly. He is walking around with only contact assist. Patient is totally alert and oriented. He is no longer delirious as he was before. No clinical GI bleeding has occurred. REVIEW OF SYSTEMS: No headaches, no double vision. OBJECTIVE VITAL SIGNS: Afebrile. Vital signs noted per electronic chart record. GENERAL: No acute distress. Still look somewhat weak, but definitely with better color than before. HEENT: Normocephalic, atraumatic. NECK: Supple. Throat is midline. LUNGS: Bilateral air entry, few rhonchi are present in the bases. CARDIOVASCULAR: S1 and S2. No murmurs, rubs, or gallops. ABDOMEN: Soft and nontender. EXTREMITIES: No clubbing and no cyanosis. There is no edema. INTEGUMENT: No rash and no purpura. LABORATORY DATA: White count 13.4, 32 hematocrit, and 657 platelets. Glucose 271, 3.4 potassium, and 0.9 creatinine. BNP was 231. B12 level 1100. Folate assay was 19. IMPRESSION AND PLAN 1. Acute respiratory failure, resolving. 2. Pneumonia, aspiration type, also resolving. 3. Gastrointestinal bleed acute, due to peptic ulcer disease. 4. Continued mild hypoxemia, improving. 5. Weakness. We will give some potassium today. Patient will need to continue rehab with PT and OT. Continue to slightly diurese him. Keep the fluid off of him. Continue antibiotics for the severe and nearly deadly infection that he had. Continue GI medicines to prevent bleeding. We will follow up closely. Job#: [id number] VAS
[2017-04-09] MEDS: METRONIDAZOLE 500 MG TAB PO SCH ×2 (14:30→22:05)
[2017-04-09] MEDS: WARFARIN SOD 5 MG TAB PO SCH (17:11)
[2017-04-09] MEDS ORDERED: IRON SUCROSE 300 MG in SODIUM CHLORIDE 0.9% 100 ML 100 ML IV SCH (20:00)
[2017-04-09] MEDS: FERROUS SULFATE 325 MG TAB PO SCH (20:43)
[2017-04-09] MEDS: INSULIN DETEMIR 100 UNIT/ML PEN SQ SCH (20:51)
[2017-04-10] VITALS: BP 140/86
[2017-04-10] MEDS: AZITHROMYCIN 500MG/NS 250 ML 250 ML IV SCH (00:30)
[2017-04-10] MEDS: IPRATROPIUM BROMIDE 0.02% 2.5 ML NEB NEB SCH ×4 (02:30→14:30)
[2017-04-10] MEDS: ALBUTEROL SULF 0.083% NEB SOLN 3 ML NEB NEB SCH ×4 (03:00→14:30)
[2017-04-10 04:00] VITALS: BP 140/76
[2017-04-10] MEDS: METRONIDAZOLE 500 MG TAB PO SCH ×2 (05:59→14:09)
[2017-04-10 06:37] LABS: BASOPHILS # (AUTO) 0.1 (0.0-0.1); BASOPHILS % 0.6 % (0.0-1.0); EOSINOPHILS # (AUTO) 0.4 (0.0-0.4); EOSINOPHILS % 2.6 % (0.0-6.0); HEMATOCRIT 30.9 % (38.2-49.6); HEMOGLOBIN 9.1 g/dL (14.0-18.0); LYMPHOCYTES # (AUTO) 1.5 (1.0-3.2); LYMPHOCYTES % 10.6 % (18.0-39.1); MEAN CORPUSCULAR HEMOGLOBIN 25.6 pg (28-32); MEAN CORPUSCULAR HGB CONC 29.4 g/dL (31-35); MONOCYTES # (AUTO) 1.5 (0.2-0.8); NEUTROPHILS # (AUTO) 10.2 (2.1-6.9); NEUTROPHILS % 74.7 % (38.7-80.0); PLATELET COUNT 651 x10e3/uL (140-360); RED BLOOD COUNT 3.55 x10e6/uL (4.3-5.7); RED CELL DISTRIBUTION WIDTH 18.6 % (11.7-14.4)
[2017-04-10 06:55] LABS: INR 1.22; PROTHROMBIN TIME 14.5 seconds (11.9-14.5)
[2017-04-10 07:10] LABS: ALANINE AMINOTRANSFERASE 8 IU/L (0-55); ALBUMIN 2.7 g/dL (3.5-5.0); ALBUMIN/GLOBULIN RATIO 0.8 (0.8-2.0); ALKALINE PHOSPHATASE 55 IU/L (40-150); ANION GAP 13.3 mmol/L (8-16); BLOOD UREA NITROGEN 13 mg/dL (7-26); BUN/CREATININE RATIO 13 (6-25); CALCIUM 8.9 mg/dL (8.4-10.2); CARBON DIOXIDE 29 mmol/L (22-29); CHLORIDE 101 mmol/L (98-107); CREATININE, SERUM 0.98 mg/dL (0.72-1.25); EST GLOMERULAR FILTRATION RATE > 60 ML/MIN (60-); GLUCOSE 178 mg/dL (74-118); POTASSIUM 4.3 mmol/L (3.5-5.1); SODIUM 139 mmol/L (136-145)
[2017-04-10 07:35] VITALS: BP 140/74
[2017-04-10] MEDS: INSULIN REGULAR, HUMAN 100 UNIT/1 ML 3ML VIAL SQ SCH ×2 (07:58→11:35)
[2017-04-10 08:01] VITALS: BP 140/74
[2017-04-10] MEDS: PANTOPRAZOLE SOD 40 MG TABEC PO SCH (08:30)
[2017-04-10] MEDS: FUROSEMIDE INJ 10 MG/ML 4 ML VIAL IV SCH (08:30)
[2017-04-10] MEDS: METOPROLOL TARTRATE 25 MG TAB PO SCH (08:30)
[2017-04-10] MEDS: FERROUS SULFATE 325 MG TAB PO SCH (08:30)
[2017-04-10 11:00] VITALS: BP 116/90
--- NOTE | 2017-04-10 13:59 | Progress Note ---
DATE: April 10, 2017 PULMONARY MEDICINE PROGRESS NOTE SUBJECTIVE: Mr. Du was seen and examined at bedside. He remains mobile a little bit further. He is moving on his own now. Oxygen saturation 96%. He is on 2 liters per nasal cannula of oxygen. Patient showered with assist today. ambulating 200 feet with therapy. REVIEW OF SYSTEMS: No bleeding, no headache. OBJECTIVE VITAL SIGNS: Afebrile. Vital signs noted per electronic record. GENERALLY: No acute distress, alert and calm. HEENT: Normocephalic, atraumatic. NECK: Supple. Throat midline. LUNGS: Bilateral air entry, mostly clear. CARDIOVASCULAR: S1 and S2. No murmurs, rubs or gallops. ABDOMINAL: Soft, nontender. EXTREMITIES: No clubbing, no cyanosis. There is no edema. INTEGUMENT: No rash. No purpura. LABS: White count 3.6, hematocrit 31, with 651 platelets. IMPRESSION AND PLAN 1. Acute respiratory failure, resolving. 2. Hypoxemia, improving. 3. Pneumonia, improving significantly on antibiotics. 4. Admit with gastrointestinal bleed secondary to peptic ulcer disease. Continue GI medicines for the bleeding. Patient will have continuation of antibiotics until finished. He needs more therapy, and he still needs assist when mobilizing. However, he is walking with a walker, which is reassuring somewhat. Will follow along closely. Continue GI nutrition. Job#: [id number] EV
== END 2017-04-10 15:15 | DRG 377 ==
LOC: ER 00:37 → ERHOLD 06:32 → EDBEDREQSVC 18:37 → ICU 23:48 → IMCU 04-05 10:10
PROC: 30233N1 Transfusion of Nonautologous Red Blood Cells into Peripheral Vein, Percutaneous Approach (ICD-10-PCS; principal; 2017-03-29)
PROC: 5A1955Z Respiratory Ventilation, Greater than 96 Consecutive Hours (ICD-10-PCS; 2017-03-29)
PROC: 30233K1 Transfusion of Nonautologous Frozen Plasma into Peripheral Vein, Percutaneous Approach (ICD-10-PCS; 2017-03-29)
PROC: 0BH17EZ Insertion of Endotracheal Airway into Trachea, Via Natural or Artificial Opening (ICD-10-PCS; 2017-03-29)
PROC: 02HV33Z Insertion of Infusion Device into Superior Vena Cava, Percutaneous Approach (ICD-10-PCS; 2017-04-01)
PROC: 0DB78ZX Excision of Stomach, Pylorus, Via Natural or Artificial Opening Endoscopic, Diagnostic (ICD-10-PCS; 2017-04-05)
PROC: 0DB68ZX Excision of Stomach, Via Natural or Artificial Opening Endoscopic, Diagnostic (ICD-10-PCS; 2017-04-05)
DX: K26.4 Chronic or unspecified duodenal ulcer with hemorrhage (principal); J96.01 Acute respiratory failure with hypoxia; R57.8 Other shock; J69.0 Pneumonitis due to inhalation of food and vomit; G93.41 Metabolic encephalopathy; E87.4 Mixed disorder of acid-base balance; E87.0 Hyperosmolality and hypernatremia; D69.6 Thrombocytopenia, unspecified; E88.09 Other disorders of plasma-protein metabolism, not elsewhere classified; I11.0 Hypertensive heart disease with heart failure; I50.9 Heart failure, unspecified; D62 Acute posthemorrhagic anemia; E86.0 Dehydration; I25.10 Atherosclerotic heart disease of native coronary artery without angina pectoris; G47.33 Obstructive sleep apnea (adult) (pediatric); E87.6 Hypokalemia; K44.9 Diaphragmatic hernia without obstruction or gangrene; F17.210 Nicotine dependence, cigarettes, uncomplicated; I48.0 Paroxysmal atrial fibrillation; Z79.01 Long term (current) use of anticoagulants; Z22.322 Carrier or suspected carrier of Methicillin resistant Staphylococcus aureus
CPT/HCPCS: 31500; 36415; 36430; 36556; 36569; 36584; 36600; 43235; 43239; 70450; 71045; 71046; 74018; 74177; 80048; 80053; 81001; 82140; 82150; 82270; 82550; 82553; 82607; 82728; 82746; 82805; 82948; 83540; 83605; 83690; 83735; 83880; 84100; 84439; 84443; 84466; 84484; 85014; 85018; 85025; 85610; 85730; 86850; 86900; 86920; 87040; 87070; 87086; 87186; 87205; 87400; 88305; 88312; 93005; 93306; 94002; 94003; 94640; 94644; 94660; 96360; 96366; 96367; 96372; 96374; 96375; 96376; 97139; 99285; J0330; J0456; J0692; J1160; J1200; J1756; J1940; J2001; J2250; J2310; J2353; J2354; J2405; J2550; J3370; J3430; J3480; J3486; J7030; J7050; J7070; P9016; P9017; Q9967

== ENCOUNTER → 2017-04-11 | Outpatient (CLI) | payer OTHER ==
[~2017-04-11] MED LIST changes: +AMLODIPINE BESY10 MG PO; +BENAZEPRIL HCL40 MG PO; +K DUR10 MEQ PO; +LEVOFLOXACIN500 MG PO; +METFORMIN HCL500 M1 PO; +SIMVASTATIN40 MG PO; +TERAZOSIN HCL10 MG PO
[2017-04-11 16:19] LABS: BASOPHILS # (AUTO) 0.1 (0.0-0.1); BASOPHILS % 0.7 % (0.0-1.0); EOSINOPHILS # (AUTO) 0.4 (0.0-0.4); EOSINOPHILS % 3.3 % (0.0-6.0); HEMATOCRIT 31.9 % (38.2-49.6); HEMOGLOBIN 9.7 g/dL (14.0-18.0); LYMPHOCYTES # (AUTO) 1.2 (1.0-3.2); MEAN CORPUSCULAR HEMOGLOBIN 26.6 pg (28-32); MEAN CORPUSCULAR HGB CONC 30.4 g/dL (31-35); MEAN CORPUSCULAR VOLUME 87.4 fL (81-99); MONOCYTES # (AUTO) 1.1 (0.2-0.8); MONOCYTES % 10.3 % (4.4-11.3); NEUTROPHILS # (AUTO) 8.1 (2.1-6.9); NEUTROPHILS % 74.3 % (38.7-80.0); PLATELET COUNT 673 x10e3/uL (140-360); RED BLOOD COUNT 3.65 x10e6/uL (4.3-5.7); RED CELL DISTRIBUTION WIDTH 18.6 % (11.7-14.4)
[2017-04-11 16:22] LABS: ANION GAP 15.7 mmol/L (8-16); BLOOD UREA NITROGEN 13 mg/dL (7-26); BUN/CREATININE RATIO 13 (6-25); CARBON DIOXIDE 27 mmol/L (22-29); CHLORIDE 101 mmol/L (98-107); CREATININE, SERUM 1.03 mg/dL (0.72-1.25); EST GLOMERULAR FILTRATION RATE > 60 ML/MIN (60-); GLUCOSE 205 mg/dL (74-118); POTASSIUM 3.7 mmol/L (3.5-5.1); SODIUM 140 mmol/L (136-145)
[2017-04-11 16:23] LABS: INR 1.19; PROTHROMBIN TIME 14.2 seconds (11.9-14.5)
== END ==
LOC: NPA 12:40
DX: Z02.89 Encounter for other administrative examinations (principal)
CPT/HCPCS: 36415; 80048; 85025; 85610

== ENCOUNTER → 2017-04-13 | Outpatient (CLI) | payer OTHER ==
[2017-04-13 16:01] LABS: ANION GAP 15.4 mmol/L (8-16); BLOOD UREA NITROGEN 11 mg/dL (7-26); BUN/CREATININE RATIO 12 (6-25); CARBON DIOXIDE 23 mmol/L (22-29); CHLORIDE 107 mmol/L (98-107); EST GLOMERULAR FILTRATION RATE > 60 ML/MIN (60-); GLUCOSE 223 mg/dL (74-118); INR 1.49; POTASSIUM 3.4 mmol/L (3.5-5.1); PROTHROMBIN TIME 16.9 seconds (11.9-14.5); SODIUM 142 mmol/L (136-145)
== END ==
LOC: NPA 13:37
DX: Z02.89 Encounter for other administrative examinations (principal)
CPT/HCPCS: 36415; 80048; 85610; 87070; 87205

== ENCOUNTER → 2017-04-17 | Outpatient (CLI) | payer OTHER ==
[2017-04-17 18:05] LABS: BLOOD UREA NITROGEN 9 mg/dL (7-26); BUN/CREATININE RATIO 9 (6-25); CALCIUM 8.6 mg/dL (8.4-10.2); CARBON DIOXIDE 24 mmol/L (22-29); CHLORIDE 105 mmol/L (98-107); CREATININE, SERUM 0.96 mg/dL (0.72-1.25); EST GLOMERULAR FILTRATION RATE > 60 ML/MIN (60-); GLUCOSE 214 mg/dL (74-118); SODIUM 139 mmol/L (136-145)
[2017-04-17 18:10] LABS: BASOPHILS # (AUTO) 0.1 (0.0-0.1); BASOPHILS % 0.8 % (0.0-1.0); EOSINOPHILS # (AUTO) 0.5 (0.0-0.4); EOSINOPHILS % 4.1 % (0.0-6.0); LYMPHOCYTES # (AUTO) 1.6 (1.0-3.2); LYMPHOCYTES % 14.3 % (18.0-39.1); MEAN CORPUSCULAR HEMOGLOBIN 26.6 pg (28-32); MEAN CORPUSCULAR VOLUME 88.8 fL (81-99); MONOCYTES # (AUTO) 1.2 (0.2-0.8); MONOCYTES % 10.5 % (4.4-11.3); NEUTROPHILS # (AUTO) 7.8 (2.1-6.9); PLATELET COUNT 462 x10e3/uL (140-360); RED BLOOD COUNT 3.38 x10e6/uL (4.3-5.7); RED CELL DISTRIBUTION WIDTH 19.5 % (11.7-14.4)
[2017-04-17 18:26] LABS: INR 1.7; PROTHROMBIN TIME 18.8 seconds (11.9-14.5)
== END ==
LOC: NPA 12:00
DX: Z02.89 Encounter for other administrative examinations (principal)
CPT/HCPCS: 36415; 80048; 85025; 85610; 87070; 87205

== ENCOUNTER 2017-06-17 17:09 | Inpatient (IN) | payer MEDICARE, OTHER ==
[~2017-06-17] VITALS: Ht 185.4 cm; Wt 102.5 kg
[2017-06-17] MEDS: METOPROLOL TARTRATE 50 MG TAB PO SCH (00:06)
[2017-06-17 01:20] VITALS: BP 133/70
--- OUTSIDE RECORDS SUMMARY | 2017-06-17 17:12 | XMS REPORT ---
Author Author [facility] Address Unknown Phone Unavailable Care Team Providers Care Nursery Manager Name Role Phone CARA CASTANEDA Unavailable Unavailable Problems This patient has no known problems. Allergies, Adverse Reactions, Alerts This patient has no known allergies or adverse reactions. Medications This patient has no known medications. Results Test Description Test Time Test Comments Text Results Atomic Results Result Comments CHEST SINGLE (PORTABLE) [place] [address] Patient Name: ROSE MENA MR #: [id number] : 1940 Age/Sex: 76/M Req #: [id number] Adm Physician: CARA CASTANEDA MD Ordered by: GERALD TELLEZ MD Report #: [id number] Location: [facility] Room/Bed: [place] [address] Procedure: [id number] DX/CHEST SINGLE (PORTABLE) Exam Date: 04/08/17 Exam Time: 1138 REPORT STATUS: Signed Examination: Single AP view of the chest. COMPARISON: None. INDICATION: Anemia, bronchitis DISCUSSION: Lines/tubes: Left upper extremity PICC tube. Lungs: No focal pneumonia. Pleura: No pleural effusion or pneumothorax. Heart and mediastinum: The heart and the mediastinum are unremarkable. Bones and soft tissues: No acute bony abnormalities. IMPRESSION: 1. No acute cardiopulmonary abnormalities. Signed by: Dr. Greg Pollack M.D. on 04/08/2017 12:00 PM Dictated By: GREG POLLACK MD 1200 Transcribed By: REMA on 04/08/17 1200 COPY TO: GERALD TELLEZ MD CHEST SINGLE (PORTABLE) [place] [address] Patient Name: ROSE MENA MR #: [id number] : 1940 Age/Sex: 76/M Req #: [id number] Adm Physician: CARA CASTANEDA MD Ordered by: GERMAN HEBERT MD Report #: [id number] Location: [facility] Room/Bed: [place] [address] Procedure: [id number] DX/CHEST SINGLE (PORTABLE) Exam Date: Exam Time: REPORT STATUS: Signed EXAMINATION: CHEST SINGLE (PORTABLE) INDICATION: Pneumonia COMPARISON: 04/05/2017 FINDINGS: TUBES and LINES: Left upper extremity PICC line again noted with tip along the left innominate vein. The Dobbhoff tube has been removed LUNGS: Lungs are not well inflated. Lungs are clear. There is mild prominence of the central pulmonary vasculature, consistent with pulmonary venous congestion. PLEURA: No pleural effusion or pneumothorax. HEART AND MEDIASTINUM: Cardiac size is mildly enlarged. There are atherosclerotic calcifications within the aorta. BONES AND SOFT TISSUES: No acute osseous lesion. Soft tissues are unremarkable. UPPER ABDOMEN: No free air under the diaphragm. IMPRESSION: No acute thoracic abnormality. Stable chest. Signed by: Dr. Alexei Wayne M.D. on 04/06/2017 6:48 AM Dictated By: ALEXEI MCNEAL MD 7 COPY TO: GERMAN HEBERT MD CHEST SINGLE (PORTABLE) [place] [address] Patient Name: ROSE MENA MR #: [id number] : 1940 Age/Sex: 76/M Req #: [id number] Adm Physician: CARA CASTANEDA MD Ordered by: GERMAN HEBERT MD Report #: [id number] Location: ICU Room/Bed: ICU [facility] Procedure: [id number] DX/CHEST SINGLE (PORTABLE) Exam Date: 04/05/17 Exam Time: 0515 REPORT STATUS: Signed EXAMINATION: CHEST SINGLE (PORTABLE) INDICATION: Pneumonia. COMPARISON: 04/04/2017 FINDINGS: TUBES and LINES: Left upper extremity PICC line again noted with tip along the left innominate vein. The Dobbhoff tube has been removed LUNGS: Lungs are not well inflated. Lungs are clear. There is mild prominence of the central pulmonary vasculature, consistent with pulmonary venous congestion. PLEURA: No pleural effusion or pneumothorax. HEART AND MEDIASTINUM: Cardiac size is mildly enlarged. There are atherosclerotic calcifications within the aorta. BONES AND SOFT TISSUES: No acute osseous lesion. Soft tissues are unremarkable. UPPER ABDOMEN: No free air under the diaphragm. IMPRESSION: No acute thoracic abnormality. Signed by: Dr. Alexei Wayne M.D. on 04/05/2017 6:38 AM Dictated By: ALEXEI MCNEAL MD 7 Transcribed By: REMA on 04/05/17637 COPY TO: GERMAN HEBERT MD CHEST SINGLE (PORTABLE) [place] [address] Patient Name: ROSE MENA MR #: [id number] : 1940 Age/Sex: 76/M Req #: [id number] Adm Physician: CARA CASTANEDA MD Ordered by: GERMAN HEBERT MD Report #: [id number] Location: ICU Room/Bed: ICU [facility] Procedure: [id number] DX/CHEST SINGLE (PORTABLE) Exam Date: 04/04/17 Exam Time: 0520 REPORT STATUS: Signed EXAMINATION: CHEST SINGLE (PORTABLE) INDICATION: Pneumonia. COMPARISON: 04/03/2017 FINDINGS: TUBES and LINES: Interval placement of Dobbhoff tube with distal tip beyond the films limits. Left upper extremity PICC line in good position with tip at the SVC. LUNGS: Interval decrease in the interlobular septi thickening and patchy airspace opacities. Lungs are clear. There is mild prominence of the central pulmonary vasculature, consistent with pulmonary venous congestion. PLEURA: No pleural effusion or pneumothorax. HEART AND MEDIASTINUM: Cardiac size is moderately enlarged. There are atherosclerotic calcifications within the aorta. BONES AND SOFT TISSUES: No acute osseous lesion. Soft tissues are unremarkable. UPPER ABDOMEN: No free air under the diaphragm. IMPRESSION: 1. Resolution of interstitial edema and atelectasis. 2. No evidence of developing pneumonia. 3. Tubes and lines are in good position. Signed by: Dr. Alexei Wayne M.D. on 04/04/2017 6:39 AM Dictated By: ALEXEI MCNEAL MD 0639 Transcribed By: REMA on 04/04/17638 COPY TO: GERMAN HEBERT MD ABDOMEN-1VIEW (KUB) [place] [address] Patient Name: ROSE MENA MR #: [id number] : 1940 Age/Sex: 76/M Req #: [id number] Adm Physician: CARA CASTANEDA MD Ordered by: KIRSTIE CASTANEDA MD Report #: [id number] Location: ICU Room/Bed: ICU [facility] ___ Procedure: [id number] DX/ABDOMEN-1VIEW (KUB) Exam Date: 04/03/17 Exam Time: 0530 REPORT STATUS: Signed EXAM: ABDOMEN-1VIEW (KUB), supine ORDER DATE: 04/03/2017 5:22 AM Time stamp on exam: 0541 hours INDICATION: Dobbhoff tube placement COMPARISON: None FINDINGS: LINES/TUBES: Tip of Dobbhoff tube in expected location of the fundus of the stomach. BOWEL PATTERN: No evidence for obstruction. SOFT TISSUES: Surgical clips right upper quadrant of the abdomen. BONES: No acute findings. IMPRESSION: Dobbhoff tube tip in expected location of the fundus of the stomach. Signed by: Dr. Hannah Zaragoza M.D. on 04/03/2017 6:30 AM Dictated By: HANNAH ZARAGOZA MD 9 Transcribed By: REMA on 629 COPY TO: KIRSTIE CASTANEDA MD CHEST SINGLE (PORTABLE) [place] [address] Patient Name: ROSE MENA MR #: [id number] : 1940 Age/Sex: 76/M Req #: [id number] Adm Physician: CARA CASTANEDA MD Ordered by: GERMAN HEBERT MD Report #: [id number] Location: ICU Room/Bed: ICU [facility] Procedure: [id number] DX/CHEST SINGLE (PORTABLE) Exam Date: 04/03/17 Exam Time: 0500 REPORT STATUS: Signed EXAM: CHEST SINGLE (PORTABLE), AP 1 view ORDER DATE: 04/03/2017 5:00 AM Time stamp on exam: 0459 hours INDICATION: CHF COMPARISON: AP view of the chest April 02, 2017 FINDINGS: LINES/TUBES: Stable position left approach PICC. Interval removal of nasal/orogastric tube. LUNGS: Pulmonary edema and bibasilar atelectasis. PLEURA: No effusions or pneumothorax. HEART AND MEDIASTINUM: Stable appearance given rotation. BONES AND SOFT TISSUES: No acute findings. IMPRESSION: Interval removal of nasal/orogastric tube, otherwise no significant interval change. Signed by: Dr. Hannah Zaragoza M.D. on 04/03/2017 6:19 AM Dictated By: HANNAH ZARAGOZA MD 8 COPY TO: GERMAN HEBERT MD [facility] ([place] [address] Patient Name: ROSE MENA MR #: [id number] : 1940 Age/Sex: 76/M Req #: [id number] Adm Physician: CARA CASTANEDA MD Ordered by: KIRSTIE CASTANEDA MD Report #: [id number] Location: ICU Room/Bed: ICU 194 ___ Procedure: [id number] DX/ABDOMEN-1VIEW (KUB) Exam Date: Exam Time: REPORT STATUS: Signed EXAM: ABDOMEN-1VIEW (KUB ), portable supine ORDER DATE: 04/02/2017 11:00 PM Time stamp on exam: 2324 hours INDICATION: Nasogastric tube placement COMPARISON: AP view of the chest April 02, 2017 FINDINGS: See impression. IMPRESSION: Limited view of the chest and upper abdomen does not show a nasogastric tube. Recommend correlation for possible coiling within the hypopharynx. Signed by: Dr. Hannah Zaragoza M.D. on 04/03/2017 12:26 AM Dictated By: HANNAH ZARAGOZA MD COPY TO: KIRSTIE CASTANEDA MD CHEST SINGLE (PORTABLE) [place] [address] Patient Name: ROSE MENA MR #: [id number] : 1940 Age/Sex: 76/M Req #: [id number] Adm Physician: CARA CASTANEDA MD Ordered by: GERMAN HEBERT MD Report #: [id number] Location: ICU Room/Bed: ICU 194 Procedure: [id number] DX/CHEST SINGLE (PORTABLE) Exam Date: 04/02/17 Exam Time: 0530 REPORT STATUS: Signed EXAM: CHEST SINGLE (PORTABLE), AP 1 view ORDER DATE: 04/02/2017 5:00 AM Time stamp on exam: 0551 hours INDICATION: Pneumonia COMPARISON: AP view of the chest April 01 2017 FINDINGS: LINES/TUBES: None LUNGS : Pulmonary edema and bibasilar atelectasis PLEURA: No effusions or pneumothorax. HEART AND MEDIASTINUM: Stable enlargement BONES AND SOFT TISSUES: No acute findings. IMPRESSION: No interval change Signed by: Dr. Hannah Zaragoza M.D. on 04/02/2017 6:26 AM Dictated By: HANNAH ZARAGOZA MD 5 Transcribed By: REMA on 04/02/17625 COPY TO: GERMAN HEBERT MD CHEST XRAY LINE PLACEMENT [place] [address] Patient Name: ROSE MENA MR #: [id number] : 1940 Age/Sex: 76/M Req #: [id number] Adm Physician: CARA CASTANEDA MD Ordered by: CARA CASTANEDA MD Report #: [id number] Location: ICU Room/Bed: [place] [address] Procedure: [id number] DX/CHEST XRAY LINE PLACEMENT Exam Date: 04/01/17 Exam Time: 1845 REPORT STATUS: Signed EXAMINATION: Chest, CHEST XRAY LINE PLACEMENT INDICATION: Chest pain COMPARISON: Portable chest 04/01/2017 FINDINGS: LINES: Left peripherally inserted central venous catheter with tip projecting over the expected region of the superior vena cava. Enteric feeding catheter is present with the tip projecting over the expected region of the gastric fundus. Heart: Normal cardiac silhouette. Vascular: The pulmonary vasculature is within normal limits. Atherosclerotic calcifications of the aortic arch. Mediastinum: No mediastinal, hilar, or axillary mass or lymphadenopathy. Lungs: No parenchymal mass. Airspace opacity in the left lung base. Pleura: No pleural effusion. No pneumothorax. Bones: No acute osseous abnormality. Degenerative changes of the thoracic spine. Soft tissues: Normal. Impression: Airspace opacity in the left lung base may represent a developing pneumonia. Signed by: Dr. Rose Griggs M.D. on 04/01/2017 7:02 PM Dictated By: ROSE GRIGGS MD 01 Transcribed By: REMA on 04/01/171901 COPY TO: CARA CASTANEDA MD CHEST SINGLE (PORTABLE) [place] [address] Patient Name: ROSE MENA MR #: [id number] : 1940 Age/Sex: 76/M Req #: [id number] Adm Physician: CARA CASTANEDA MD Ordered by: GERMAN HEBERT MD Report #: [id number] Location: ICU Room/Bed: [place] [address] Procedure: [id number] DX/CHEST SINGLE (PORTABLE) Exam Date: Exam Time: REPORT STATUS: Signed EXAM: CHEST SINGLE (PORTABLE), AP 1 view ORDER DATE: 04/01/2017 5:00 AM Time stamp on exam: 0558 hours INDICATION: CHF COMPARISON: AP view of the chest March 31, 2017 at 0525 hours FINDINGS: LINES/TUBES: Stable endotracheal tube, right internal jugular vein central line and nasal/ orogastric tube LUNGS: Increasing edema and bibasilar atelectasis. PLEURA: Likely layering pleural effusions bilaterally. HEART AND MEDIASTINUM: Stable cardiac enlargement. BONES AND SOFT TISSUES: No acute findings. IMPRESSION: Developing pulmonary edema and increasing bilateral atelectasis. Signed by: Dr. Hannah Zaragoza M.D. on 2017 6:33 AM Dictated By: HANNAH ZARAGOZA MD 2 Transcribed By: REMA on 04/01/17632 COPY TO: GERMAN HEBERT MD ABDOMEN-1VIEW (KUB) [place] [address] Patient Name: ROSE MENA MR #: [id number] : 1940 Age/Sex: 76/M Req #: [id number] Adm Physician: CARA CASTANEDA MD Ordered by: GERMAN HEBERT MD Report #: [id number] Location: ICU Room/Bed: ICU [facility] ___ Procedure: [id number] DX/ABDOMEN-1VIEW (KUB) Exam Date: 03/31/17 Exam Time: 1649 REPORT STATUS: Signed PROCEDURE: X-RAY ABDOMEN - KUB COMPARISON: [facility], CT, CT ABDOMEN/ PELVIS W, 03/29/2017, 3:19. Patients [facility], DX, CHEST SINGLE ( PORTABLE), 03/31/2017, 5:25. INDICATIONS: NASOGASTRIC TUBE PLACEMENT FINDINGS: See conclusion. CONCLUSION: 1. The enteric tube projects in the left upper abdomen, likely coiled in the stomach fundus. 2. Nonobstructive bowel gas pattern. 3. Left retrocardiac opacity and obscuration of the left hemidiaphragm, which may represent left lower lobe consolidation or atelectasis and/or effusion Romario Thomas M.D. Dictated by: Romario Thomas M.D. on 03/31/2017 at 18:12 Electronically approved by: Romario Thomas M.D. on 03/31/2017 at 18:12 Dictated By: ROMARIO THOMAS MD 11 Transcribed By: SAURAV on 03/31/171811 COPY TO: GERMAN HEBERT MD CHEST SINGLE (PORTABLE) [place] [address] Patient Name: ROSE MENA MR #: [id number] : 1940 Age/Sex: 76/M Req #: [id number] Adm Physician: CARA CASTANEDA MD Ordered by: GERMAN HEBERT MD Report #: [id number] Location: ICU Room/Bed: ICU [facility] Procedure: [id number] DX/CHEST SINGLE (PORTABLE) Exam Date: 03/31/17 Exam Time: 0510 REPORT STATUS: Signed EXAM: CHEST SINGLE (PORTABLE), AP 1 view ORDER DATE: 03/31/2017 5:00 AM Time stamp on exam: 0525 hours INDICATION: Intubated COMPARISON: AP view of the chest March 30, 2017 at 0515 hours FINDINGS: LINES/TUBES: Endotracheal tube terminates 7 cm above the pallavi. Interval removal of nasal/ orogastric tube. Right internal jugular vein central line, stable position LUNGS: Increasing bibasilar atelectasis. PLEURA: Likely layering pleural effusions bilaterally. HEART AND MEDIASTINUM: Stable appearance. BONES AND SOFT TISSUES: No acute findings. IMPRESSION: Increasing bibasilar atelectasis and developing bilateral pleural effusions. Signed by: Dr. Hannah Zaragoza M.D. on 03/31/2017 6:28 AM Dictated By: HANNAH ZARAGOZA MD 7 Transcribed By: REMA on 03/31/17627 COPY TO: GERMAN HEBERT MD CHEST SINGLE (PORTABLE) [place] [address] Patient Name: ROSE MENA MR #: [id number] : 1940 Age/Sex: 76/M Req #: [id number] Adm Physician: CARA CASTANEDA MD Ordered by: FAREED MARTINEZ MD Report #: [id number] Location: ICU Room/Bed: ICU [facility] ___ Procedure: [id number] DX/CHEST SINGLE (PORTABLE) Exam Date: 03/30/17 Exam Time: 0445 REPORT STATUS: Signed EXAM: CHEST SINGLE (PORTABLE), AP 1 view ORDER DATE: 03/30/2017 6:00 AM Time stamp on exam: 0515 hours INDICATION: Respiratory failure COMPARISON: AP view of the chest March 29, 2017 FINDINGS: LINES/TUBES: Endotracheal tube terminates 5 cm above the pallavi. Right internal jugular vein central line terminates in expected location of the proximal superior vena cava. Nasal/orogastric tube terminates in expected location of the fundus of the stomach. LUNGS: Perihilar and bibasilar atelectasis. PLEURA: No effusions or pneumothorax. HEART AND MEDIASTINUM: Stable appearance. BONES AND SOFT TISSUES: No acute findings. IMPRESSION: Perihilar and bibasilar atelectasis. Signed by: Dr. Hannah Zaragoza M.D. on 03/30/2017 6:09 AM Dictated By: HANNAH ZARAGOZA MD 8 Transcribed By: REMA on 608 COPY TO: FAREED MARTINEZ MD CHEST SINGLE (PORTABLE) [place] [address] Patient Name: ROSE MENA MR #: [id number] : 1940 Age/Sex: 76/M Req #: [id number] Adm Physician: CARA CASTANEDA MD Ordered by: MARIELOS CERRATO MD Report #: [id number] Location: [facility] Room/Bed: [place] [address] Procedure: [id number] DX/CHEST SINGLE (PORTABLE) Exam Date: Exam Time: REPORT STATUS: Signed PROCEDURE: A single AP view of the chest. COMPARISON: Chest radiograph 03/29/2017 at 0128 hrs. INDICATIONS: INTUBATION FINDINGS: Lines/tubes: * Right IJ central venous catheter tip overlies the mid SVC. * Endotracheal tube tip projects approximately 4.7 cm above the pallavi. Lungs: New linear and hazy opacities in the left upper lung. No evidence of pulmonary edema. Pleura: There is no pleural effusion or pneumothorax. Heart and mediastinum: The heart and the mediastinum are unremarkable. Bones: No acute bony abnormality. Upper abdomen: Visualized portions of the stomach appear distended. IMPRESSION: 1. ET tube with tip approximately 4.7 cm above the pallavi. 2. Right IJ catheter tip at the level of the mid SVC. 3. New opacities in the left lung may represent atelectasis or developing consolidation. Dictated by: Miguel Beaulieu M.D. on 03/29/2017 at 17:51 Electronically approved by: Miguel Beaulieu M.D. on 03/29/2017 at 17:51 Dictated By: MIGUEL BEAULIEU MD 50 COPY TO: MARIELOS CERRATO MD CT BRAIN WO [place] [address] Patient Name: ROSE MENA MR #: [id number] : 1940 Age/Sex: 76/M Req #: [id number] Adm Physician: Ordered by: MARILU HAIDER MD Report #: [id number] Location: ER Room/Bed: Procedure: [id number] CT/CT BRAIN WO Exam Date: 03/29/17 Exam Time: 0315 REPORT STATUS: Signed Examination: CT BRAIN WITHOUT CONTRAST History:Dizziness Comparison studies:Head CT dated 09/01/2010. Technique: Axial images were obtained from the skull base to the vertex. Coronal and sagittal images reconstructed from the axial data. Intravenous contrast: None Findings: Scalp: No abnormalities. Bones: Intact. No fractures. No blastic or lytic lesions. Brain sulci: Appropriate for patient's age. Ventricles: Normal in size and configuration. No hydrocephalus. . Extra-axial space: No abnormalities. Parenchyma: There are mild confluent areas of low-attenuation within subcortical and periventricular white matter, nonspecific, but could represent microvascular ischemic disease. No masses, hemorrhage, or acute vascular insults. Suprasellar region: No abnormalities. Craniocervical junction: The foramen magnum is patent. No Chiari one malformation. Incidental findings: None. Impression: 1. No acute intracranial abnormality. No change from prior head CT dated 09/01/2010. 2. Mild chronic microvascular ischemic change. Signed by: Dr. Epifanio Trujillo M.D. on 03/29/2017 4:25 AM Dictated By: EPIFANIO SANDRA MD 4 Transcribed By: REMA on 03/29/17424 COPY TO: MARILU HAIDER MD CT ABDOMEN/PELVIS W [place] [address] Patient Name: ROSE MENA MR #: [id number] : 1940 Age/Sex: 76/M Req #: [id number] Adm Physician: Ordered by: MARILU HAIDER MD Report #: [id number] Location: ER Room/Bed: Procedure: [id number] CT/CT ABDOMEN/PELVIS W Exam Date: 03/29/17 Exam Time : 0315 REPORT STATUS: Signed EXAM: CT ABDOMEN AND PELVIS with IV CONTRAST DATE: 03/29/2017 Time stamp on Exam: 0322 hours INDICATION: Abdominal pain, GI bleeding, diarrhea COMPARISON: None TECHNIQUE: The abdomen and pelvis were scanned using a multidetector helical scanner. Coronal and sagittal reformations were obtained. Routine protocol performed. IV Contrast: 100 cc Isovue-370 Oral Contrast: None CTDIvol has been reviewed. It is below the limits set by the Radiation Protocol Committee (RPC) . FINDINGS: LOWER THORAX: No consolidations LIVER: Cyst measuring 1.7 cm in the right lobe of the liver. Several subcentimeter hypodensities are too small to characterize, likely cysts. BILIARY: Cholecystectomy. No ductal dilation. SPLEEN: The spleen is small PANCREAS: No masses ADRENALS: Left adrenal gland hypertrophy KIDNEYS: Symmetric perfusion. No enhancing masses. No hydronephrosis. Simple cyst measuring 1.5 cm and the right kidney and 2 cm and the left kidney. Nonspecific bilateral perinephric fat stranding. GI TRACT: Sigmoid colon diverticulosis with wall thickening and without acute inflammation. Scattered diverticula throughout the colon. No bowel obstruction. Incidentally the appendix contains diverticula. No periappendiceal fat stranding. 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 PERITONEUM/RETROPERITONEUM: No free air or fluid. Round calcified mass measuring approximately 1.5 cm in the anterior upper abdomen, likely related to old fat necrosis. LYMPH NODES: No lymphadenopathy REPRODUCTIVE ORGANS: The prostate contains coarse calcifications and is within normal size limits. BLADDER: Unremarkable SOFT TISSUES: Incidental partially visualized intramuscular lipoma right anterior thigh. BONES: No suspicious bone lesions. IMPRESSION: Extensive colonic diverticulosis with chronic diverticulitis of the sigmoid colon. Signed by: Dr. Hannah Zaragoza M.D. on 03/29/2017 3:53 AM Dictated By: HANNAH ZARAGOZA MD 2 COPY TO: MARILU HAIDER MD CHEST 2 VIEWS [place] [address] Patient Name: ROSE MENA MR #: [id number] : 1940 Age/Sex: 76/M Req #: [id number] Adm Physician: Ordered by: MARILU HAIDER MD Report #: [id number] Location: ER Room/Bed: Procedure: [id number] DX/CHEST 2 VIEWS Exam Date: 03/29/17 Exam Time: 0133 REPORT STATUS: Signed EXAM: CHEST 2 VIEWS, PA and lateral ORDER DATE: 03/29/2017 12:58 AM TIME STAMP ON EXAM: 0128 hours INDICATION: Chest pain , near syncope COMPARISON: AP view of the chest February 29, 2012 FINDINGS : LINES/TUBES: None LUNGS: No consolidations or edema. PLEURA: No effusions or pneumothorax. HEART AND MEDIASTINUM: Normal size and contour. BONES AND SOFT TISSUES: No acute findings. IMPRESSION: No acute thoracic abnormality. Signed by: Dr. Hannah Zaragoza M.D. on 2017 1:50 AM Dictated By: HANNAH ZARAGOZA MD 9 Transcribed By: REMA on 03/29/17149 COPY TO: MARILU HAIDER MD
--- OUTSIDE RECORDS SUMMARY | 2017-06-17 17:12 | XMS REPORT | Continuity of Care Document ---
Author Author [facility] Organization [facility] Address [address] [place] [address] Phone Unavailable Care Team Providers Care Pharm[employer] Sales Name Role Phone MARIA GUADALUPE QUEVEDO DO PCP Insurance Providers Guarantor Rose Du Address [address] [place] [address] Email NONE Payer [facility] Medicare Replacement Policy Number [id number] Subscriber's Name Rose Du Relationship 18 Self / Same As Patient Group Number [id number] Group Name [employer] Effective Date 11 Advance Directives Directive Response Recorded Date/Time Does the patient have an advance directive? No 03/30/17 2:56am If yes, is advance directive on file with [facility]? No 03/30/17 2:56am If not on file with [facility] will patient provide a copy? Yes 03/30/17 2:56am Do you have a Directive to Physician? No 03/29/17 3:00am Do you have a Medical Power of Hygiene Assistant? No 03/29/17 3:00am Do you have an out of hospital Do Not Resuscitate Order? No 03/29/17 3:00am Do you have any special needs we should be aware of? No 03/29/17 3:00am Do you have a support person here with you today? Yes 03/29/17 3:00am Did patient receive Notice of Privacy Practices? Yes 03/29/17 3:00am Did patient receive patient rights and responsibilities? Yes 03/29/17 3:00am Problems Medical Problem Onset Date Status Anemia Unknown Bronchitis Unknown CHF (congestive heart failure) Unknown COPD exacerbation Unknown Chronic atrial fibrillation Unknown Diverticulitis large intestine Unknown GI bleed Unknown Near syncope Unknown Medications Current Home Medications Medication Dose Units Route Directions Days Qty Instructions Start Date Amlodipine Besylate 10 Mg Tablet 1 Tab Oral Daily 90 Benazepril Hcl 40 Mg Tablet 1 Tab Oral Daily 90 Dabigatran Etexilate Mesylate (Pradaxa) 150 Mg Capsule 150 Mg Oral Twice A Day Levofloxacin 500 Mg Tablet 1 Tab Oral Daily 10 Metformin Hcl (Metformin Hcl Er) 500 Mg Tab.er.24h 1,000 Mg Oral Twice A Day 360 Metoprolol Tartrate 50 Mg Tablet 50 Mg Oral Twice A Day Potassium Chloride (K Dur*) 10 Meq Tabcr 1 Cap Oral Daily 90 Simvastatin 40 Mg Tablet 1 Tab Oral Bedtime 90 Terazosin Hcl 10 Mg Capsule 1 Tab Oral Daily 90 Past Home Medications Medication Directions Ordered Status Albuterol Sulfate (Ventolin Hfa) 18 Gm Hfa.aer.ad, Discontinued Albuterol/Ipratropium (Combivent Inhaler) 14.7 Gm Aero, 2 Puffs Q6h Prn Discontinued Wahcd-B-Cgalsielepirw (Beano) 1 Each Tablet, 2 Tab Oral Daily Discontinued Teumu-R-Cvfdgoqtfsmcl (Beano) 1 Each Tablet, 2 Tab Oral Daily Discontinued Amlodipine Besylate/Benazepril (Lotrel 10-40 Mg Capsule) 1 Each Capsule, 1 Each Oral Daily Discontinued Amlodipine Besylate/Benazepril (Amlodipine-Benazepril 10-40 Mg) 1 Each Capsule , 1 Each Oral Daily Discontinued Aspirin 81 Mg Tablet, 81 Mg Oral Daily Discontinued Aspirin (Ecotrin) 81 Mg Tablet.dr, 81 Mg Oral Daily Discontinued Cephalexin Monohydrate (Keflex) 500 Mg Capsule, 500 Mg Oral Three Times A Day Discontinued Cetirizine Hcl/Pseudoephedrine (Zyrtec-D Tablet) 1 Each Tab.er.12h, 1 Tab Oral Daily Discontinued Cholecalciferol (Vitamin D3) (Vitamin D) 1,000 Unit Tablet, 1000 U Oral Daily Discontinued Clopidogrel Bisulfate (Plavix) 75 Mg Tablet, 75 Mg Oral Daily Discontinued Dabigatran Etexilate Mesylate (Pradaxa) 150 Mg Capsule, 150 Mg Oral Twice A Day Discontinued Diphenhydramine Hcl (Benadryl) 25 Mg Capsule, 25 Mg Oral Qhs Discontinued Diphenhydramine Hcl (Benadryl) 25 Mg Capsule, 25 Mg Oral Discontinued Fexofenadine Hcl (Kika) 60 Mg Tablet, 60 Mg Oral Discontinued Fluticasone Propionate (Flonase) 16 Gm [place].susp, 1 Spr Nasal Twice A Day Discontinued Furosemide (Lasix) 40 Mg Tablet, 40 Mg Oral Daily Discontinued Furosemide (Lasix) 80 Mg Tablet, 80 Mg Oral Daily Discontinued Glimepiride 4 Mg Tablet, 4 Mg Oral Twice A Day Discontinued Glimepiride 4 Mg Tablet, 4 Mg Oral Twice A Day Discontinued Hctz , 25 Mg Oral Daily Discontinued Ibuprofen (Motrin) 600 Mg Tablet, 600 Mg Oral Every 6-8HRS Discontinued Ibuprofen 600 Mg Tablet, 600 Mg Oral Every 6 Hours as needed Discontinued Ipratropium Hixson 0.2 Mg/1 Ml Solution, 0.02 Inhalation Every 6 Hours as needed Discontinued Ipratropium/Albuterol Sulfate (Iprat-Albut 0.5-3(2.5) Mg/3 Ml) 3 Ml Ampul.neb, Discontinued Iron Dextran Complex 50 Mg/1 Ml Vial, Discontinued Loratadine (Claritin) 10 Mg Tablet, 10 Mg Oral Daily as needed Discontinued Metformin Hcl (Metformin Hcl Er) 500 Mg Tab.sr.24h, 1000 Mg Oral Twice A Day Discontinued Metformin Hcl (Metformin Hcl Er) 500 Mg Tab.sr.24h, 1000 Mg Oral Twice A Day Discontinued Metoprolol Tartrate 25 Mg Tablet, 25 Mg Oral Twice A Day Discontinued Metoprolol Tartrate 25 Mg Tablet, 25 Mg Oral Twice A Day Discontinued Montelukast Sodium (Singulair) 10 Mg Tablet, 10 Mg Oral Bedtime Discontinued Multivit With Calcium,Iron,Min (Essential Daily) 1 Each Tablet, 1 Tab Oral Daily Discontinued Murpirocin , 1 Topically Three Times A Day Discontinued Murpirocin , Discontinued [place]-3 Fatty Acids (Fish Oil) 500 Mg Capsule, 1000 Mg Oral Daily Discontinued [place]-3 Fatty Acids (Fish Oil) 500 Mg Capsule, 1000 Mg Oral Daily Discontinued Omeprazole (Prilosec) 20 Mg Capsule.dr, 20 Mg Oral Daily Discontinued Omeprazole Magnesium (Prilosec Otc) 20 Mg Tablet.dr, 20 Mg Oral Daily Discontinued Pantoprazole Sodium (Protonix) 40 Mg Tablet.dr, 40 Mg Oral Daily Discontinued Pioglitazone Hcl (Actos) 15 Mg Tablet, 15 Mg Oral Daily Discontinued Potassium Chloride (Klor-Con M20) 20 Meq Tab.prt.sr, 5 Meq Oral Daily Discontinued Potassium Chloride 10 Meq Tablet.er, 10 Meq Oral Daily Discontinued Prednisone 5 Mg Tablet, 5 Mg Oral Daily X 5 Days Discontinued Prednisone 5 Mg Tablet, 5 Mg Oral 1 Tab Qdx5 Days Discontinued Simvastatin 40 Mg Tablet, 40 Mg Oral Daily Discontinued Simvastatin (Zocor) 40 Mg Tablet, 40 Mg Oral Bedtime Discontinued Terazosin Hcl 5 Mg Capsule, 10 Mg Oral Bedtime Discontinued Terazosin Hcl 10 Mg Capsule, 10 Mg Oral Bedtime Discontinued Tylenol , 2 Tab Oral Every 6 Hours as needed Discontinued Valsartan/Hydrochlorothiazide (Diovan Hct 160-25 Mg Tablet) 1 Each Tablet, 1 Each Oral Daily Discontinued Vit D , 1000 Intlu Oral Daily Discontinued Zertec D , 1 Tab Oral Daily as needed Discontinued Social History Social History Problem Response Recorded Date/Time Onset Date Status Hx Psychiatric Problems No 03/30/2017 2:56am Not Applicable Not Applicable Hx Eating Disorder No 03/30/2017 2:56am Not Applicable Not Applicable Hx Substance Use Disorder No 03/30/2017 2:56am Not Applicable Not Applicable Hx Depression No 03/30/2017 2:56am Not Applicable Not Applicable Hx Alcohol Use No 03/30/2017 2:56am Not Applicable Not Applicable Hx Substance Use Treatment No 03/30/2017 2:56am Not Applicable Not Applicable Hx Physical Abuse No 03/30/2017 2:56am Not Applicable Not Applicable Smoking Status Start Date Stop Date Current every day smoker Hospital Discharge Instructions No hospital discharge instruction information available. Plan of Care Discharge Date 04/10/17 3:15pm Disposition [facility] ([facility] Instructions/Education Provided Anemia Prescriptions See Medication Section Additional Instructions/Education diabetic - GI soft Functional Status Query Response Date Recorded FUNCTIONAL STATUS . April 03, 2017 4:12pm Ambulation Ability Total Assistance March 29, 2017 6:15pm Toileting Ability Moderate Assistance April 06, 2017 7:47am Allergies, Adverse Reactions, Alerts No known allergies. Immunizations No immunization information available. Vital Signs Acute Vital Signs Vital Response Date/Time Temperature (Fahrenheit) 98.3 degrees F (97.6 - 99.5) 04/10/2017 11:00am Pulse Pulse Rate (adult) 88 bpm (60 - 90) 04/10/2017 2:45pm Pulse Pulse Rate (adult) 88 bpm (60 - 90) 04/10/2017 2:45pm Respiratory Rate 17 bpm (12 - 24) 04/10/2017 2:45pm Blood Pressure 116/90 mm Hg 04/10/2017 11:00am Height 6 ft 1 in 03/29/2017 12:39am Weight 216 lb 04/05/2017 8:00pm Body Mass Index 28.5 kg/m^2 04/10/2017 7:50am Results Laboratory Results Test Name Result Units Flags Reference Collection Date/Time Result Date/ Time Comments White Blood Count 13.64 x10e3/uL H 4.8-10.8 04/10/2017 6:05am 2017 6:50am Red Blood Count 3.55 x10e6/uL L 4.3-5.7 04/10/2017 6:05am 04/10/2017 6: 50am Hemoglobin 9.1 g/dL L 14.0-18.0 04/10/2017 6:05am 04/10/2017 6:50am Hematocrit 30.9 % L 38.2-49.6 04/10/2017 6:05am 04/10/2017 6:50am Mean Corpuscular Volume 87.0 fL 81-99 04/10/2017 6:05am 04/10/2017 6: 50am Mean Corpuscular Hemoglobin 25.6 pg L 28-32 04/10/2017 6:05am 2017 6:50am Mean Corpuscular Hemoglobin Concent 29.4 g/dL L 31-35 04/10/2017 6:05am 04/10/2017 6:50am Red Cell Distribution Width 18.6 % H 11.7-14.4 04/10/2017 6:05am 2017 6:50am Platelet Count 651 x10e3/uL H 140-360 04/10/2017 6:05am 04/10/2017 6: 50am Neutrophils (%) (Auto) 74.7 % 38.7-80.0 04/10/2017 6:0504/10/2017 6: 50am Lymphocytes (%) (Auto) 10.6 % L 18.0-39.1 04/10/2017 6:0504/10/2017 6 :50am Monocytes (%) (Auto) 11.0 % 4.4-11.3 04/10/2017 6:0504/10/2017 6: 50am Eosinophils (%) (Auto) 2.6 % 0.0-6.0 04/10/2017 6:0504/10/2017 6: 50am Basophils (%) (Auto) 0.6 % 0.0-1.0 04/10/2017 6:0504/10/2017 6:50am IM GRANULOCYTES % 0.5 % 0.0-1.0 04/10/2017 6:0504/10/2017 6:50am Neutrophils # (Auto) 10.2 H 2.1-6.9 04/10/2017 6:0504/10/2017 6: 50am Lymphocytes # (Auto) 1.5 1.0-3.2 04/10/2017 6:0504/10/2017 6:50am Monocytes # (Auto) 1.5 H 0.2-0.8 04/10/2017 6:0504/10/2017 6:50am Eosinophils # (Auto) 0.4 0.0-0.4 04/10/2017 6:0504/10/2017 6:50am Basophils # (Auto) 0.1 0.0-0.1 04/10/2017 6:0504/10/2017 6:50am Absolute Immature Granulocyte (auto 0.07 x10e3/uL 0-0.1 04/10/2017 6: 0504/10/2017 6:50am Differential Total Cells Counted 100 04/05/2017 5:27am 04/05/2017 7 :08am Neutrophils % (Manual) 81 % H 40-74 04/05/2017 5:27am 04/05/2017 7:08am Lymphocytes % (Manual) 7 % L 19-48 04/05/2017 5:27am 04/05/2017 7:08am Monocytes % (Manual) 8 % 3.4-9.0 04/05/2017 5:27am 04/05/2017 7:08am Eosinophils % (Manual) 3 % 0-7 04/05/2017 5:27am 04/05/2017 7:08am Basophils % (Manual) 1 % 0-1.5 03/31/2017 5:23am 03/31/2017 8:31am Reactive Lymphocytes 1 04/05/2017 5:27am 04/05/2017 7:08am Platelet Estimate SLIGHTLY INCREASED 04/05/2017 5:27am 04/05/2017 7 :08am Platelet Morphology Comment FEW GIANT 04/05/2017 5:27am 04/05/2017 7:08am Polychromasia FEW 04/01/2017 6:40pm 04/01/2017 8:19pm Hypochromasia MODERATE 04/05/2017 5:27am 04/05/2017 7:08am Poikilocytosis SLIGHT 04/05/2017 5:27am 04/05/2017 7:08am Anisocytosis MODERATE 04/05/2017 5:27am 04/05/2017 7:08am Red Cell Morphology Comment ABNORMAL 04/05/2017 5:27am 04/05/2017 7 :08am Prothrombin Time 14.5 seconds 11.9-14.5 04/10/2017 6:05am 04/10/2017 6: 56am Prothromb Time International Ratio 1.22 04/10/2017 6:05am 2017 6:56am Oral Anticoagulant Therapy INR Values: 1. Low Intensity Therapy 1.5 - 2.0 2. Moderate Intensity Therapy 2.0 - 3.0 3. High Intensity Therapy(1) 2.5 - 3.5 4. High Intensity Therapy(2) 3.0 - 4.0 5. Panic Value INR > 5.0 Activated Partial Thromboplast Time 23.4 seconds L 23.8-35.5 04/08/2017 2 :25pm 04/08/2017 3:04pm Urine Color YELLOW YELLOW 03/29/2017 4:20am 03/29/2017 4:32am Urine Clarity CLEAR CLEAR 03/29/2017 4:2003/29/2017 4:32am Urine Specific Given 1.015 1.010-1.025 03/29/2017 4:202017 4:32am Urine pH 5 5 - 7 03/29/2017 4:2003/29/2017 4:32am Urine Leukocyte Esterase TRACE H NEGATIVE 03/29/2017 4:20am 2017 4:32am Urine Nitrite NEGATIVE NEGATIVE 03/29/2017 4:2003/29/2017 4:32am Urine Protein NEGATIVE NEGATIVE 03/29/2017 4:2003/29/2017 4:32am Urine Glucose (UA) NEGATIVE NEGATIVE 03/29/2017 4:2003/29/2017 4: 32am Urine Ketones NEGATIVE NEGATIVE 03/29/2017 4:2003/29/2017 4:32am Urine Urobilinogen 0.2 mg/dL 0.2 - 1 03/29/2017 4:20am 03/29/2017 4: 32am Urine Bilirubin NEGATIVE NEGATIVE 03/29/2017 4:03/29/2017 4: 32am Urine Blood NEGATIVE NEGATIVE 03/29/2017 4:2003/29/2017 4:32am Urine WBC 6-10 /HPF H 0-5 03/29/2017 4:2003/29/2017 4:38am Urine RBC 0-5 /HPF 0-5 03/29/2017 4:2003/29/2017 4:38am Urine Bacteria FEW /HPF NONE 03/29/2017 4:03/29/2017 4:38am Urine Epithelial Cells RARE /LPF NONE 03/29/2017 4:2003/29/2017 4: 38am Sodium Level 139 mmol/L 136-145 04/10/2017 6:0504/10/2017 7:19am Potassium Level 4.3 mmol/L # 3.5-5.1 04/10/2017 6:0504/10/2017 7:19am Chloride Level 101 mmol/L 98-107 04/10/2017 6:0504/10/2017 7:19am Influenza Virus Types A,B Antigen NEGATIVE NEGATIVE 03/29/2017 12: 45am 03/29/2017 1:30am Carbon Dioxide Level 29 mmol/L 22-29 04/10/2017 6:0504/10/2017 7: 19am Anion Gap 13.3 mmol/L 8-16 04/10/2017 6:05am 04/10/2017 7:19am Blood Urea Nitrogen 13 mg/dL 7-04/10/2017 6:0504/10/2017 7:19am Creatinine 0.98 mg/dL 0.72-1.25 04/10/2017 6:05am 04/10/2017 7:19am BUN/Creatinine Ratio 13 6-25 04/10/2017 6:05am 04/10/2017 7:19am Estimat Glomerular Filtration Rate > 60 ML/MIN 60- 04/10/2017 6:05 7:19am Ranges were taken from the National Kidney Disease Education Program and the National Kid[employer] Foundation literature. Reference ranges: 60 or greater: Normal 16-59 (for 3 consecutive months): Chronic kidney disease 15 or less: Kidney failure Glucose Level 178 mg/dL H 74-118 04/10/2017 6:05am 04/10/2017 7:19am Calcium Level 8.9 mg/dL 8.4-10.2 04/10/2017 6:0504/10/2017 7:19am Bedside Glucose 154 mg/dL H 70-120 04/10/2017 11:06am 04/10/2017 11: 13am Meter ID: [id number] Lactic Acid Level 17.3 MG/DL 4.5-19.8 04/02/2017 2:10pm 04/02/2017 2: 43pm Phosphorus Level 2.7 MG/DL 2.3-4.7 04/05/2017 5:27am 04/05/2017 6:20am Magnesium Level 1.6 MG/DL 1.3-2.1 04/06/2017 6:05am 04/06/2017 6:49am Iron Level 23 ug/dL L 65-175 04/09/2017 6:35am 04/09/2017 8:14am Total Iron Binding Capacity 342 ug/dL 261-478 04/09/2017 6:35am 2017 8:14am Percent Iron Saturation 7 % L 15-50 04/09/2017 6:35am 04/09/2017 8:14am Transferrin 244 mg/dL 174-364 04/09/2017 6:35am 04/09/2017 8:14am Ferritin 33.32 ng/mL 21.81-274.66 04/09/2017 6:35am 04/09/2017 8:45am Total Bilirubin 0.8 mg/dL 0.2-1.2 04/10/2017 6:0504/10/2017 7:19am Aspartate Amino Transf (AST/SGOT) 24 IU/L 5-34 04/10/2017 6:05am 2017 7:19am Alanine Aminotransferase (ALT/SGPT) 8 IU/L 0-55 04/10/2017 6:0504/10 7:19am Ammonia 39 UG/DL 31-123 03/30/2017 12:20am 03/30/2017 12:38am Total Protein 6.2 g/dL L 6.5-8.1 04/10/2017 6:0504/10/2017 7:19am Albumin 2.7 g/dL L 3.5-5.0 04/10/2017 6:0504/10/2017 7:19am Globulin 3.5 g/dL 2.3-3.5 04/10/2017 6:0504/10/2017 7:19am Albumin/Globulin Ratio 0.8 0.8-2.0 04/10/2017 6:0504/10/2017 7: 19am Alkaline Phosphatase 55 IU/L 40-150 04/10/2017 6:05am 04/10/2017 7: 19am B-Type Natriuretic Peptide 238.6 pg/mL H 0-100 04/10/2017 6:05am 2017 7:37am Creatine Kinase 38 IU/L 30-200 03/29/2017 4:30pm 03/29/2017 6:40pm Creatine Kinase MB 1.00 ng/mL 0.00-5.00 03/29/2017 4:30pm 03/29/2017 6: 49pm Troponin I 0.008 ng/mL 0-0.300 03/29/2017 4:30pm 03/29/2017 6:49pm Amylase Level 29 U/L 25-125 04/02/2017 2:10pm 04/02/2017 2:44pm Lipase 14 U/L 8-78 04/02/2017 2:10pm 04/02/2017 2:44pm Vitamin B12 Level 1114 pg/mL H 213-816 04/09/2017 6:35am 04/09/2017 8: 45am Folate 18.6 ng/mL H 7.0-15.4 04/09/2017 6:35am 04/09/2017 8:45am Free Thyroxine 1.19 ng/dL 0.9-1.8 04/09/2017 6:35am 04/09/2017 8:45am Thyroid Stimulating Hormone (TSH) 1.508 uIU/mL 0.350-4.940 04/09/2017 6: 35am 04/09/2017 8:45am Arterial Blood pH 7.43 H 7.31-7.41 04/01/2017 3:15pm 04/01/2017 3: 36pm Arterial Blood Partial Pressure CO2 33 mmHg L 41-51 04/01/2017 3:15pm 3:36pm Arterial Blood Partial Pressure O2 56 mmHg L 80-105 04/01/2017 3:15pm 3:36pm Arterial Blood HCO3 22 mmol/L L 23-28 04/01/2017 3:15pm 04/01/2017 3: 36pm Arterial Blood Base Excess -2.0 mmol/L -2 - 3 04/01/2017 3:15pm 2017 3:36pm Arterial Blood Oxygen Saturation 90.0 % L 95-98 04/01/2017 3:15pm 2017 3:36pm Stool Occult Blood POSITIVE H NEGATIVE 03/29/2017 3:37am 03/29/2017 3: 44am Microbiology Results Procedure Source Organism/Result Collection Date/Time Result Date/Time Result Status Blood Culture Blood NO GROWTH AFTER 5 DAYS, FINAL REPORT 03/29/2017 12: 45am 04/03/2017 1:09am Final Sputum Culture Sputum, Expectorated Sputum STAPHYLOCOCCUS AUREUS-MRSA 2017 9:25am 04/03/2017 6:44am Final Procedures Procedure Status Date Provider(s) EGD (esophagogastroduodenoscopy) Completed 03/30/17 KIRSTIE CASTANEDA MD EGD with biopsy Active 04/03/17 KIRSTIE CASTANEDA MD EGD with biopsy Completed 04/05/17 KIRSTIE CASTANEDA MD X-ray of chest, two views Active 03/29/17 MARILU HAIDER MD Computed tomography of abdomen and pelvis with contrast Active 03/29/17 MARILU HAIDER MD Computed tomography of brain without radiopaque contrast Active 03/29/17 MARILU HAIDER MD Encounters Encounter Location Arrival/Admit Date Discharge/Depart Date Attending Provider Discharged Inpatient [facility] 03/29/17 6:32am 04/10/17 3:15pm CARA CASTANEDA MD
[2017-06-17] MEDS ORDERED: PANTOPRAZOLE 40 MG 10ML VIAL IV STA (17:50)
[2017-06-17 18:24] LABS: BASOPHILS # (AUTO) 0.1 (0.0-0.1); BASOPHILS % 0.8 % (0.0-1.0); EOSINOPHILS # (AUTO) 0.3 (0.0-0.4); EOSINOPHILS % 2.4 % (0.0-6.0); HEMATOCRIT 38.8 % (38.2-49.6); HEMOGLOBIN 12.5 g/dL (14.0-18.0); LYMPHOCYTES # (AUTO) 3.3 (1.0-3.2); LYMPHOCYTES % 28.8 % (18.0-39.1); MEAN CORPUSCULAR HEMOGLOBIN 29.1 pg (28-32); MEAN CORPUSCULAR HGB CONC 32.2 g/dL (31-35); MEAN CORPUSCULAR VOLUME 90.4 fL (81-99); MONOCYTES # (AUTO) 1.2 (0.2-0.8); MONOCYTES % 10.4 % (4.4-11.3); NEUTROPHILS # (AUTO) 6.5 (2.1-6.9); NEUTROPHILS % 57.3 % (38.7-80.0); PLATELET COUNT 230 x10e3/uL (140-360); RED BLOOD COUNT 4.29 x10e6/uL (4.3-5.7); RED CELL DISTRIBUTION WIDTH 16.3 % (11.7-14.4)
[2017-06-17 18:36] LABS: INR 2.88; PARTIAL THROMBOPLASTIN TIME 38.5 seconds (23.8-35.5); PROTHROMBIN TIME 28.3 seconds (11.9-14.5)
[2017-06-17 18:45] LABS: ALANINE AMINOTRANSFERASE 6 IU/L (0-55); ALBUMIN 3.7 g/dL (3.5-5.0); ALKALINE PHOSPHATASE 84 IU/L (40-150); ANION GAP 16.7 mmol/L (8-16); BLOOD UREA NITROGEN 21 mg/dL (7-26); BUN/CREATININE RATIO 24 (6-25); CALCIUM 9.7 mg/dL (8.4-10.2); CARBON DIOXIDE 24 mmol/L (22-29); CHLORIDE 104 mmol/L (98-107); CREATININE, SERUM 0.88 mg/dL (0.72-1.25); EST GLOMERULAR FILTRATION RATE > 60 ML/MIN (60-); GLUCOSE 74 mg/dL (74-118); POTASSIUM 3.7 mmol/L (3.5-5.1); SODIUM 141 mmol/L (136-145)
--- NOTE | 2017-06-17 19:01 | Diagnostic Imaging Report ---
EXAMINATION: CHEST SINGLE (PORTABLE) INDICATION: Shortness of breath. Blood in the stool. COMPARISON: Chest x-ray 04/08/2017. 04/05/2017. FINDINGS: AP view TUBES and LINES: None. LUNGS: Lungs are well inflated. There is perihilar interstitial opacities, consistent with interstitial edema. PLEURA: No pleural effusion or pneumothorax. HEART AND MEDIASTINUM: Cardiac size is mildly enlarged. There are atherosclerotic calcifications within the aorta. BONES AND SOFT TISSUES: No acute osseous lesion. Soft tissues are unremarkable. UPPER ABDOMEN: No free air under the diaphragm. IMPRESSION: Mild cardiomegaly with interstitial edema. Signed by: Dr. Kory Rivers M.D. on 06/17/2017 6:57 PM
[2017-06-17] MEDS ORDERED: SODIUM CHLORIDE 0.9% 250ML 250 ML IV ONE (20:00)
[2017-06-17] MEDS ORDERED: SODIUM CHLORIDE 0.9% 1000ML 1,000 ML IV SCH (21:08)
[2017-06-17] MEDS: PANTOPRAZOLE 40 MG 10ML VIAL IV SCH (21:23)
[2017-06-17 22:43] VITALS: BP 167/83
[2017-06-17 23:00] VITALS: BP 167/83
[2017-06-17] MEDS ORDERED: WARFARIN SODIUM5 MG PO (23:19)
[2017-06-17] MEDS ORDERED: GLIMEPIRIDE2 MG PO (23:19)
[2017-06-17] MEDS ORDERED: PANTOPRAZOLE SO40 MG PO (23:21)
[2017-06-17] MEDS ORDERED: ALBUTEROL0.63 MG/3 INH (23:27)
[2017-06-17] MEDS ORDERED: IPRATROPIU0.2 MG/1 M NEB (23:27)
[2017-06-17] MEDS ORDERED: FIBER TAB PO (23:35)
[2017-06-17] MEDS ORDERED: ECOTRIN81 MG PO (23:35)
[2017-06-17] MEDS ORDERED: ALLEGRA ALLERGY60 MG PO (23:35)
[2017-06-17] MEDS ORDERED: MULTIVITAMINS1 EAC7 PO (23:37)
[2017-06-17] MEDS ORDERED: VITAMIN D1000 UNI1 PO (23:38)
[2017-06-17] MEDS ORDERED: TYLENOL325 MG PO (23:43)
[2017-06-17] MEDS ORDERED: FISH OIL 1,0001 EAC2 PO (23:43)
[2017-06-17] MEDS ORDERED: VITAMIN C500 M4 PO (23:43)
[2017-06-17] MEDS ORDERED: IRON PO (23:43)
[2017-06-18] VITALS (12 sets, daily range): BP systolic 123–177; BP diastolic 64–88
[2017-06-18 00:48] LABS: BASOPHILS # (AUTO) 0.1 (0.0-0.1); BASOPHILS % 0.8 % (0.0-1.0); EOSINOPHILS # (AUTO) 0.3 (0.0-0.4); EOSINOPHILS % 2.8 % (0.0-6.0); HEMATOCRIT 34.9 % (38.2-49.6); HEMOGLOBIN 11.2 g/dL (14.0-18.0); LYMPHOCYTES # (AUTO) 3.3 (1.0-3.2); LYMPHOCYTES % 28.3 % (18.0-39.1); MEAN CORPUSCULAR HEMOGLOBIN 28.6 pg (28-32); MEAN CORPUSCULAR HGB CONC 32.1 g/dL (31-35); MONOCYTES # (AUTO) 1.2 (0.2-0.8); MONOCYTES % 10.3 % (4.4-11.3); NEUTROPHILS # (AUTO) 6.8 (2.1-6.9); NEUTROPHILS % 57.5 % (38.7-80.0); PLATELET COUNT 218 x10e3/uL (140-360); RED BLOOD COUNT 3.92 x10e6/uL (4.3-5.7); RED CELL DISTRIBUTION WIDTH 16.1 % (11.7-14.4)
[2017-06-18] MEDS ORDERED: FUROSEMIDE INJ 10 MG/ML 2 ML VIAL IV ONE (02:15)
[2017-06-18 07:06] LABS: BASOPHILS # (AUTO) 0.1 (0.0-0.1); BASOPHILS % 0.8 % (0.0-1.0); EOSINOPHILS # (AUTO) 0.2 (0.0-0.4); EOSINOPHILS % 2.3 % (0.0-6.0); HEMATOCRIT 35.5 % (38.2-49.6); HEMOGLOBIN 11.3 g/dL (14.0-18.0); LYMPHOCYTES % 19.5 % (18.0-39.1); MEAN CORPUSCULAR HEMOGLOBIN 28.7 pg (28-32); MEAN CORPUSCULAR HGB CONC 31.8 g/dL (31-35); MEAN CORPUSCULAR VOLUME 90.1 fL (81-99); MONOCYTES # (AUTO) 0.9 (0.2-0.8); MONOCYTES % 9.3 % (4.4-11.3); NEUTROPHILS # (AUTO) 6.8 (2.1-6.9); NEUTROPHILS % 67.9 % (38.7-80.0); PLATELET COUNT 211 x10e3/uL (140-360); RED BLOOD COUNT 3.94 x10e6/uL (4.3-5.7)
[2017-06-18 07:29] LABS: INR 1.82; PROTHROMBIN TIME 19.8 seconds (11.9-14.5)
[2017-06-18 07:43] LABS: ALANINE AMINOTRANSFERASE 6 IU/L (0-55); ALBUMIN 3.6 g/dL (3.5-5.0); ALBUMIN/GLOBULIN RATIO 1.2 (0.8-2.0); ALKALINE PHOSPHATASE 63 IU/L (40-150); ANION GAP 11.3 mmol/L (8-16); BLOOD UREA NITROGEN 13 mg/dL (7-26); BUN/CREATININE RATIO 16 (6-25); CALCIUM 9.4 mg/dL (8.4-10.2); CARBON DIOXIDE 29 mmol/L (22-29); CHLORIDE 102 mmol/L (98-107); CREATININE, SERUM 0.83 mg/dL (0.72-1.25); EST GLOMERULAR FILTRATION RATE > 60 ML/MIN (60-); GLUCOSE 117 mg/dL (74-118); POTASSIUM 3.3 mmol/L (3.5-5.1); SODIUM 139 mmol/L (136-145)
[2017-06-18] MEDS: METOPROLOL TARTRATE 50 MG TAB PO SCH ×2 (08:21→17:01)
[2017-06-18] MEDS: PANTOPRAZOLE 40 MG 10ML VIAL IV SCH ×2 (08:21→21:00)
[2017-06-18 11:55] LABS: BASOPHILS # (AUTO) 0.1 (0.0-0.1); BASOPHILS % 0.7 % (0.0-1.0); EOSINOPHILS # (AUTO) 0.2 (0.0-0.4); EOSINOPHILS % 1.8 % (0.0-6.0); HEMATOCRIT 32.3 % (38.2-49.6); HEMOGLOBIN 10.5 g/dL (14.0-18.0); LYMPHOCYTES # (AUTO) 2.1 (1.0-3.2); LYMPHOCYTES % 23.6 % (18.0-39.1); MEAN CORPUSCULAR HEMOGLOBIN 29.3 pg (28-32); MEAN CORPUSCULAR HGB CONC 32.5 g/dL (31-35); MEAN CORPUSCULAR VOLUME 90.2 fL (81-99); MONOCYTES # (AUTO) 0.7 (0.2-0.8); MONOCYTES % 8.3 % (4.4-11.3); NEUTROPHILS # (AUTO) 5.7 (2.1-6.9); NEUTROPHILS % 65.3 % (38.7-80.0); PLATELET COUNT 201 x10e3/uL (140-360); RED BLOOD COUNT 3.58 x10e6/uL (4.3-5.7); RED CELL DISTRIBUTION WIDTH 16.1 % (11.7-14.4)
[2017-06-18] MEDS ORDERED: ACETAMINOPHEN 325 MG TAB PO PRN (12:30)
[2017-06-18] MEDS ORDERED: ALBUTEROL SULF 0.083% NEB SOLN 3 ML NEB INH PRN (12:30)
[2017-06-18] MEDS ORDERED: POTASSIUM CHLORIDE 20 MEQ TAB CR PO ONE (13:00)
--- NOTE | 2017-06-18 13:48 | History and Physical ---
A 76-year-old male with a past medical history positive for chronic atrial fibrillation, hypertension, diabetes mellitus, type 2, hyperlipidemia. The patient came here because of a few days of rectal bleeding. Hemoglobin and hematocrit are stable. The patient apparently was scheduled for a colonoscopy by Dr. Avendaño as an outpatient. REVIEW OF SYSTEMS CARDIOVASCULAR: No chest pain or palpitation. RESPIRATORY: No shortness of breath. No cough. GASTROINTESTINAL: No nausea. No vomiting. No diarrhea. GENITOURINARY: He did have an episode of rectal bleeding for a few days. The last was one was yesterday. Nothing today. PAST MEDICAL HISTORY: Hypertension, diabetes, chronic atrial fibrillation, and also hyperlipidemia. ALLERGIES: HE IS NOT ALLERGIC TO ANY MEDICATION. SOCIAL HISTORY: He does not smoke. He does not drink. PHYSICAL EXAMINATION VITALS: Blood pressure 123/64, temperature 97.2, heart rate 55 per minute, respiratory rate is 18 per minute, oxygen saturation 95%. HEART: Shows regular rhythm. Normal S1 and S2 sounds. Heart rate is irregularly irregular. LUNGS: Clear bilaterally. ABDOMEN: Soft, nontender and nondistended. No visceromegaly. EXTREMITIES: Show no evidence of cyanosis or trauma. On the BMP, sodium 139, potassium 3.3, chloride 102, CO2 29, BUN 13, creatinine 0.83, glucose 117. On the CBC, white blood count 8.77, hemoglobin 10.5, hematocrit 32.3, and platelet count 201,000. PT 19.8, INR 1.82 and PTT 38.5. AST 20, ALT 6, total bilirubin 0.9, alkaline phos 63. EKG was done and showed atrial fibrillation, nonspecific ST-T changes. FINAL IMPRESSION 1. Rectal bleeding. 2. Chronic atrial fibrillation. 3. Diabetes mellitus, type 2. 4. Hyperlipidemia. 5. Hypokalemia. PLAN OF TREATMENT: The patient received fresh frozen plasma in the emergency room. We are going to resume the diabetic diet. He is going to see Dr. Seven Avendaño for gastroenterology. He will decide on endoscopy. Continue Protonix 40 mg IV twice a day. Metoprolol 50 mg twice a day. Resume the rest of the home medications with the exception of aspirin and Coumadin. The patient as I said will have gastroenterology decide on endoscopy. The patient also mentioned that he has a history of upper gastrointestinal bleed in the past also. Monitor blood sugar a.c. and at night. Diabetic diet. Job#: [id number] SCOTTY
[2017-06-18] MEDS ORDERED: INSULIN REGULAR, HUMAN 100 UNIT/1 ML 3ML VIAL SQ SCH (16:30)
[2017-06-18] MEDS ORDERED: LORATADINE 10 MG TAB PO SCH (17:00)
[2017-06-18] MEDS ORDERED: METOPROLOL TARTRATE 50 MG TAB PO SCH (17:00)
[2017-06-18] MEDS: METFORMIN HCL 500 MG TAB CR PO SCH (17:01)
[2017-06-18] MEDS ORDERED: IPRATROPIUM BROMIDE 0.02% 2.5 ML NEB NEB SCH (19:00)
[2017-06-18] MEDS: ALBUTEROL/IPRATROPIUM 3 ML NEB INH SCH (20:00)
[2017-06-18] MEDS: INSULIN REGULAR, HUMAN 100 UNIT/1 ML 3ML VIAL SQ SCH (21:00)
[2017-06-18] MEDS: SIMVASTATIN 40 MG TAB PO SCH (21:40)
[2017-06-19] VITALS: BP 140/65
--- NOTE | 2017-06-19 00:20 | Discharge Summary ---
PEYTON GRANADO SAMANTHA ESCOBAR MD Job#: [id number] CQ
[2017-06-19] MEDS ORDERED: BISACODYL 5 MG TAB EC PO ONE ×4 (00:30→01:30)
[2017-06-19 04:00] VITALS: BP 161/70
[2017-06-19] MEDS ORDERED: CITRATE OF MAGNESIA 300ML BOTTLE PO ONE ×2 (05:00→07:00)
[2017-06-19 06:42] LABS: BASOPHILS # (AUTO) 0.1 (0.0-0.1); BASOPHILS % 0.9 % (0.0-1.0); EOSINOPHILS # (AUTO) 0.3 (0.0-0.4); EOSINOPHILS % 2.5 % (0.0-6.0); HEMATOCRIT 34.3 % (38.2-49.6); LYMPHOCYTES # (AUTO) 2.6 (1.0-3.2); LYMPHOCYTES % 25.7 % (18.0-39.1); MEAN CORPUSCULAR HGB CONC 32.1 g/dL (31-35); MEAN CORPUSCULAR VOLUME 90.5 fL (81-99); MONOCYTES # (AUTO) 0.9 (0.2-0.8); MONOCYTES % 9.4 % (4.4-11.3); NEUTROPHILS # (AUTO) 6.1 (2.1-6.9); NEUTROPHILS % 61.1 % (38.7-80.0); PLATELET COUNT 217 x10e3/uL (140-360); RED BLOOD COUNT 3.79 x10e6/uL (4.3-5.7); RED CELL DISTRIBUTION WIDTH 15.9 % (11.7-14.4)
[2017-06-19 06:52] LABS: INR 1.6; PROTHROMBIN TIME 17.9 seconds (11.9-14.5)
[2017-06-19 07:04] LABS: ANION GAP 14.6 mmol/L (8-16); BLOOD UREA NITROGEN 9 mg/dL (7-26); BUN/CREATININE RATIO 11 (6-25); CALCIUM 9.3 mg/dL (8.4-10.2); CARBON DIOXIDE 26 mmol/L (22-29); CHLORIDE 104 mmol/L (98-107); CREATININE, SERUM 0.84 mg/dL (0.72-1.25); EST GLOMERULAR FILTRATION RATE > 60 ML/MIN (60-); GLUCOSE 112 mg/dL (74-118); POTASSIUM 3.6 mmol/L (3.5-5.1); SODIUM 141 mmol/L (136-145)
[2017-06-19] MEDS: INSULIN REGULAR, HUMAN 100 UNIT/1 ML 3ML VIAL SQ SCH ×4 (07:30→21:00)
[2017-06-19] MEDS ORDERED: PANTOPRAZOLE SOD 40 MG TABEC PO SCH (07:30)
[2017-06-19] MEDS: ALBUTEROL/IPRATROPIUM 3 ML NEB INH SCH ×2 (07:40→20:40)
[2017-06-19] MEDS: METFORMIN HCL 500 MG TAB CR PO SCH ×2 (08:00→18:46)
[2017-06-19] MEDS: PANTOPRAZOLE 40 MG 10ML VIAL IV SCH ×2 (09:00→22:06)
[2017-06-19] MEDS: GLIMEPIRIDE 2 MG TAB PO SCH (09:00)
[2017-06-19] MEDS: AMLODIPINE BESYLATE 10 MG TAB PO SCH (09:00)
[2017-06-19] MEDS: METOPROLOL TARTRATE 50 MG TAB PO SCH ×2 (09:00→18:46)
[2017-06-19] MEDS ORDERED: POTASSIUM CHLORIDE 10 MEQ TABCR PO SCH (09:00)
[2017-06-19] MEDS: CHOLECALCIFEROL 1,000 UNIT TAB PO SCH (09:00)
[2017-06-19] MEDS: MULTIVITAMINS/MINERALS TAB PO SCH (09:00)
[2017-06-19 09:20] VITALS: BP 161/70
[2017-06-19 12:21] VITALS: BP 155/70
[2017-06-19 18:15] VITALS: BP 150/77
[2017-06-19] MEDS ORDERED: MIDAZOLAM HCL 2 MG/2 ML VIAL ONE (19:39)
[2017-06-19] MEDS ORDERED: FENTANYL CITRATE/PF 100MCG/2 ML INJ ONE (19:39)
[2017-06-19] MEDS ORDERED: PROPOFOL IV EMULSION 10 MG/ML 50 ML VIAL ONE (19:47)
[2017-06-19] MEDS ORDERED: LIDOCAINE HCL 2% LOCAL INJ 5 ML SDV VIAL INJ ONE (19:47)
[2017-06-19 20:00] VITALS: BP 124/59
[2017-06-19] MEDS: SIMVASTATIN 40 MG TAB PO SCH (22:06)
[2017-06-20] VITALS: BP 118/65
[2017-06-20 04:00] VITALS: BP 144/59
[2017-06-20 07:23] LABS: BASOPHILS # (AUTO) 0.1 (0.0-0.1); BASOPHILS % 0.7 % (0.0-1.0); EOSINOPHILS # (AUTO) 0.3 (0.0-0.4); EOSINOPHILS % 2.2 % (0.0-6.0); HEMATOCRIT 36.1 % (38.2-49.6); HEMOGLOBIN 11.5 g/dL (14.0-18.0); LYMPHOCYTES # (AUTO) 2.7 (1.0-3.2); LYMPHOCYTES % 19.9 % (18.0-39.1); MEAN CORPUSCULAR HEMOGLOBIN 29.1 pg (28-32); MEAN CORPUSCULAR HGB CONC 31.9 g/dL (31-35); MEAN CORPUSCULAR VOLUME 91.4 fL (81-99); MONOCYTES # (AUTO) 1.2 (0.2-0.8); MONOCYTES % 8.6 % (4.4-11.3); NEUTROPHILS # (AUTO) 9.1 (2.1-6.9); NEUTROPHILS % 68.2 % (38.7-80.0); PLATELET COUNT 230 x10e3/uL (140-360); RED BLOOD COUNT 3.95 x10e6/uL (4.3-5.7); RED CELL DISTRIBUTION WIDTH 15.7 % (11.7-14.4)
[2017-06-20] MEDS: INSULIN REGULAR, HUMAN 100 UNIT/1 ML 3ML VIAL SQ SCH ×4 (07:30→21:00)
[2017-06-20] MEDS: METFORMIN HCL 500 MG TAB CR PO SCH ×2 (07:55→16:55)
[2017-06-20 08:06] VITALS: BP 151/73
[2017-06-20] MEDS: AMLODIPINE BESYLATE 10 MG TAB PO SCH (08:55)
[2017-06-20] MEDS: CHOLECALCIFEROL 1,000 UNIT TAB PO SCH (08:55)
[2017-06-20] MEDS: METOPROLOL TARTRATE 50 MG TAB PO SCH ×2 (08:55→16:55)
[2017-06-20] MEDS: MULTIVITAMINS/MINERALS TAB PO SCH (08:55)
[2017-06-20] MEDS: GLIMEPIRIDE 2 MG TAB PO SCH (08:55)
[2017-06-20] MEDS: PANTOPRAZOLE 40 MG 10ML VIAL IV SCH ×2 (08:55→22:30)
[2017-06-20] MEDS: ALBUTEROL/IPRATROPIUM 3 ML NEB INH SCH (09:00)
[2017-06-20 09:24] VITALS: BP 151/73
[2017-06-20 13:13] VITALS: BP 126/59
--- NOTE | 2017-06-20 14:59 | Consultation ---
DATE OF CONSULTATION: June 20, 2017 CARDIOLOGY CONSULTATION REASON FOR CONSULTATION: AFib. REQUESTING PHYSICIAN: Dr. Jose Avendaño HPI: This is a pleasant 76-year-old male that presented with black, tarry stools. According to the patient, for the last 2 to 3 days, he started having bright red blood in the stool and also dark, tarry stools. He decided to come in for evaluation. In March, he was admitted, intubated and later discharged home after he had coagulopathy from [facility]. He received multiple blood transfusions and later was discharged home with Coumadin per spreading machine operator. He denied any chest pain, any dizziness, any shortness of breath or diaphoresis. EKG showed AFib, irregularly irregular. PAST MEDICAL HISTORY: AFib, sleep apnea, osteoarthritis, reflux, hernia, diverticulosis, pancreatitis, anemia, coagulopathy, diabetes, hypertension, hyperlipidemia, small distal abdominal aortic aneurysm, COPD, CHF. PAST SURGICAL HISTORY: Pancreatic Whipple. FAMILY HISTORY: Noncontributory. SOCIAL HISTORY: No smoking. No drinking. MEDICATIONS: He was on aspirin, Coumadin, vitamin C, benazepril, omega-3 fatty acid, terazosin, fiber tablet, iron tablet, amlodipine, albuterol, Tylenol No. 3. ALLERGIES: HE IS NOT ALLERGIC TO ANY MEDICATION. REVIEW OF SYSTEMS: Negative except those mentioned above. PHYSICAL EXAMINATION GENERAL: He is alert, awake and oriented times 3. VITAL SIGNS: Temperature 97, heart rate 61, blood pressure 140/70, respirations 18, oxygen saturation 98% on room air. HEENT: Mucous membranes moist. NECK: Supple. LUNGS: Bilaterally clear to auscultation. CARDIOVASCULAR: Irregularly irregular. ABDOMEN: Soft. NEUROLOGIC: Intact. EXTREMITIES: No edema. LABS: Sodium 141, potassium 3.6, chloride 104, CO2 26, BUN 9, creatinine 0.84, glucose 112. White blood cells 13.3, hemoglobin 11.5, hematocrit 36.1, platelets 230. PT 17.9, PTT 38.5, INR 1.60. IMPRESSION 1. Chronic atrial fibrillation. 2. Hypertension. 3. Gastrointestinal bleed. 4. Anemia. 5. Diabetes. 6. Hyperlipidemia. 7. History of coagulopathy. 8. History of small distal abdominal aortic aneurysm. 9. History of congestive heart failure. ASSESSMENT AND PLAN 1. He received 1 blood transfusion on this admission. 2. Status post esophagogastroduodenoscopy that showed gastritis, esophagitis and distal duodenal ulcer. No anticoagulation for now. May consider using baby aspirin if okay with GI. His heart rate is controlled. Will continue beta tl. He had an echo done in March with EF 60% to 65%. Further cardiac workup pending clinical cause. Thank you for this consultation. Dictated by Cherelle Argueta NP Job#: [id number]
[2017-06-20 20:00] VITALS: BP 141/63
[2017-06-20] MEDS: SIMVASTATIN 40 MG TAB PO SCH (22:30)
[2017-06-21] VITALS: BP 151/70
[2017-06-21 04:00] VITALS: BP 156/76
[2017-06-21] MEDS: ALBUTEROL/IPRATROPIUM 3 ML NEB INH SCH (06:30)
[2017-06-21 06:51] LABS: BASOPHILS # (AUTO) 0.1 (0.0-0.1); BASOPHILS % 0.8 % (0.0-1.0); EOSINOPHILS # (AUTO) 0.4 (0.0-0.4); EOSINOPHILS % 3.7 % (0.0-6.0); LYMPHOCYTES # (AUTO) 2.4 (1.0-3.2); LYMPHOCYTES % 21.4 % (18.0-39.1); MEAN CORPUSCULAR HEMOGLOBIN 29.3 pg (28-32); MEAN CORPUSCULAR HGB CONC 32.4 g/dL (31-35); MEAN CORPUSCULAR VOLUME 90.4 fL (81-99); MONOCYTES # (AUTO) 1.1 (0.2-0.8); MONOCYTES % 9.7 % (4.4-11.3); NEUTROPHILS # (AUTO) 7.2 (2.1-6.9); PLATELET COUNT 210 x10e3/uL (140-360); RED BLOOD COUNT 3.76 x10e6/uL (4.3-5.7); RED CELL DISTRIBUTION WIDTH 15.6 % (11.7-14.4)
[2017-06-21 07:18] LABS: ANION GAP 12.3 mmol/L (8-16); BLOOD UREA NITROGEN 10 mg/dL (7-26); BUN/CREATININE RATIO 13 (6-25); CARBON DIOXIDE 26 mmol/L (22-29); CHLORIDE 106 mmol/L (98-107); EST GLOMERULAR FILTRATION RATE > 60 ML/MIN (60-); GLUCOSE 104 mg/dL (74-118); POTASSIUM 3.3 mmol/L (3.5-5.1); SODIUM 141 mmol/L (136-145)
[2017-06-21] MEDS: INSULIN REGULAR, HUMAN 100 UNIT/1 ML 3ML VIAL SQ SCH ×2 (07:30→11:30)
[2017-06-21] MEDS ORDERED: GLIMEPIRIDE 2 MG TAB PO SCH (08:00)
[2017-06-21 08:01] VITALS: BP 152/72
[2017-06-21] MEDS: PANTOPRAZOLE 40 MG 10ML VIAL IV SCH (08:21)
[2017-06-21] MEDS: METFORMIN HCL 500 MG TAB CR PO SCH (08:21)
[2017-06-21] MEDS: METOPROLOL TARTRATE 50 MG TAB PO SCH (08:22)
[2017-06-21] MEDS: CHOLECALCIFEROL 1,000 UNIT TAB PO SCH (08:22)
[2017-06-21] MEDS: MULTIVITAMINS/MINERALS TAB PO SCH (08:22)
[2017-06-21] MEDS ORDERED: AMLODIPINE BESYLATE 5 MG TAB PO SCH (09:00)
[2017-06-21] MEDS ORDERED: ASPIRIN 81 MG CHEW TAB PO SCH (09:00)
[2017-06-21 09:24] VITALS: BP 152/72
[2017-06-21] MEDS ORDERED: POTASSIUM CHLORIDE 10 MEQ TABCR PO NR (11:00)
[2017-06-21 11:48] VITALS: BP 134/67
--- NOTE | 2017-07-06 18:23 | Operative Report ---
DATE OF PROCEDURE: June 19, 2017 PROCEDURE PERFORMED: Colonoscopy and polypectomy note. REFERRING PHYSICIAN: Dr. Srinath Quevedo INDICATIONS FOR PROCEDURE: Rectal bleeding. MEDICATION: Patient was done under MAC. Please see anesthesiologist note. PROCEDURE IN DETAIL: With the patient in left lateral decubitus position, flexible fiberoptic Olympus colonoscope was inserted into the rectum with ease, and advanced all the way to the cecum. Prep overall was suboptimal with retained stools in the colon. An approximately 1 cm flat lesion was noted in the cecum that was hot biopsied. The scope was withdrawn slowly, and diverticular disease was noted throughout the ascending, transverse, descending, and sigmoid colon. No obvious obstructing or constricting lesions. A minute polyp was hot biopsied from the rectum. The scope was then retroflexed into the distal rectum and small internal hemorrhoids were noted, none of which was actively bleeding. The scope was then straightened out. The scope was subsequently withdrawn. Patient tolerated the procedure well. IMPRESSION: 1. Suboptimal prep. 2. Pandiverticulosis. 3. Approximately 1 cm flat lesion in cecum, hot biopsied. 4. Rectal polyp, hot biopsied. 5. Internal hemorrhoids, none actively bleeding. PLAN: Follow up histology. Initiate high-fiber low-fat diet. Initiate high-fiber supplement. Patient will need followup colonoscopy in 1 to 2 years due to his suboptimal prep. KIRSTIE CASTANEDA MD Job#: [id number] cc:SRINATH QUEVEDO DO
== END 2017-06-21 13:20 | disposition home or self-care (01) | DRG 394 ==
LOC: ER 17:09 → ERHOLD 21:28 → MED/SURG 21:46
PROC: 30233K1 Transfusion of Nonautologous Frozen Plasma into Peripheral Vein, Percutaneous Approach (ICD-10-PCS; 2017-06-18)
PROC: 0DBP8ZX Excision of Rectum, Via Natural or Artificial Opening Endoscopic, Diagnostic (ICD-10-PCS; 2017-06-19)
PROC: 0DBH8ZX Excision of Cecum, Via Natural or Artificial Opening Endoscopic, Diagnostic (ICD-10-PCS; principal; 2017-06-19 15:51)
DX: D12.0 Benign neoplasm of cecum (principal); K92.1 Melena; K57.30 Diverticulosis of large intestine without perforation or abscess without bleeding; I50.9 Heart failure, unspecified; I11.0 Hypertensive heart disease with heart failure; E11.9 Type 2 diabetes mellitus without complications; D50.0 Iron deficiency anemia secondary to blood loss (chronic); I48.2 Chronic atrial fibrillation; G47.30 Sleep apnea, unspecified; Z79.01 Long term (current) use of anticoagulants; I71.4 Abdominal aortic aneurysm, without rupture; E87.6 Hypokalemia; Z79.4 Long term (current) use of insulin; K29.70 Gastritis, unspecified, without bleeding; K20.9 Esophagitis, unspecified; E78.5 Hyperlipidemia, unspecified; K64.8 Other hemorrhoids; T45.515A Adverse effect of anticoagulants, initial encounter; K63.5 Polyp of colon
CPT/HCPCS: 36415; 45384; 71045; 80048; 80053; 82948; 83735; 83880; 85025; 85610; 85730; 86850; 86900; 86920; 88305; 93005; 94640; 99284; J1940; J2001; J2250; J7030; J7050; P9017

== ENCOUNTER 2017-07-02 11:49 | Inpatient (IN) | payer MEDICARE, OTHER ==
[~2017-07-02] VITALS: Ht 185.4 cm; Wt 99.8 kg
[~2017-07-02 11:49] MED LIST changes: +ALBUTEROL0.63 MG/3 INH; +ALLEGRA ALLERGY60 MG PO; +ECOTRIN81 MG PO; +FIBER TAB PO; +FISH OIL 1,0001 EAC2 PO; +GLIMEPIRIDE2 MG PO; +IPRATROPIU0.2 MG/1 M NEB; +IRON PO; +MULTIVITAMINS1 EAC7 PO; +TYLENOL325 MG PO; +VITAMIN C500 M4 PO; +WARFARIN SODIUM5 MG PO
--- OUTSIDE RECORDS SUMMARY | 2017-07-02 11:53 | XMS REPORT | Continuity of Care Document ---
Author Author [facility] Organization [facility] Address [address] [place] [address] Phone Unavailable Care Team Providers Care Electric Truck Operator Name Role Phone MARIA GUADALUPE QUEVEDO DO PCP Insurance Providers Guarantor Rose Du Address [address] [place] [address] Email NONE Payer [employer] Policy Number [id number] Subscriber's Name Rose Du Jos Relationship 18 Self / Same As Patient Advance Directives Directive Response Recorded Date/Time Does the patient have an advance directive? Yes 06/17/17 10:50pm If yes, is advance directive on file with [facility]? Yes 06/17/17 10:50pm If not on file with [facility] will patient provide a copy? Yes 06/17/17 10:50pm Do you have a Directive to Physician? No 06/17/17 6:43pm Do you have a Medical Power of Bilingual Office Assistant? No 06/17/17 6:43pm Do you have an out of hospital Do Not Resuscitate Order? No 06/17/17 6:43pm Do you have any special needs we should be aware of? No 06/17/17 6:43pm Do you have a support person here with you today? Yes 06/17/17 6:43pm Did patient receive Notice of Privacy Practices? Yes 06/17/17 6:43pm Did patient receive patient rights and responsibilities? Yes 06/17/17 6:43pm Problems Medical Problem Onset Date Status Anemia Unknown Bronchitis Unknown CHF (congestive heart failure) Unknown COPD exacerbation Unknown Chronic atrial fibrillation Unknown Coagulopathy Unknown Diverticulitis large intestine Unknown GI bleed Unknown Near syncope Unknown Warfarin-induced coagulopathy Unknown Medications Current Home Medications Medication Dose Units Route Directions Days Qty Instructions Start Date Acetaminophen (Tylenol*) 325 Mg Tablet 650 Mg Oral Every 6 Hours as needed for Pain And Temperature Albuterol Sulfate 0.63 Mg/3 Ml Vial.neb 0.083 % Inhalation Twice A Day GIVE C IPRATROPIUM BROMIDE Amlodipine Besylate 10 Mg Tablet 1 Tab Oral Daily 90 Ascorbate Calcium (Vitamin C) 500 Mg Tablet 500 Mg Oral Daily Benazepril Hcl 40 Mg Tablet 1 Tab Oral Daily 90 Cholecalciferol (Vitamin D3) (Vitamin D) 1,000 Unit Tablet 1,000 Unit Oral Daily 30 Tab Fexofenadine Hcl (Kika Allergy) 60 Mg Tablet 60 Mg Oral Twice A Day THERAPEUTICALLY SUBSTITUTED WITH CLARITIN 10MG Fiber Tab 4-6 Tab Oral Daily Glimepiride 2 Mg Tablet 4 Mg Oral Daily TAKE AT 1700 DAILY Ipratropium Butler 0.2 Mg/1 Ml Solution 2.5 Ml Nebullizer Twice A Day GIVE C ALBUTEROL Iron 65 Mg Oral Three Times A Day Metformin Hcl (Metformin Hcl Er) 500 Mg Tab.er.24h 1,000 Mg Oral Twice A Day 360 Metoprolol Tartrate 50 Mg Tablet 50 Mg Oral Twice A Day Multivitamin (Multivitamins) 1 Each Capsule 1 Tab Oral Daily [place]itzen-3 Fatty Acids/Fish Oil (Fish Oil 1,000 Mg Capsule) 1 Each Capsule 1,300 Mg Peg Tube Daily Pantoprazole Sodium (Protonix) 40 Mg Tablet.dr 40 Mg Oral Daily Potassium Chloride (K Dur*) 10 Meq Tabcr 1 Cap Oral Daily 90 Simvastatin 40 Mg Tablet 1 Tab Oral Bedtime 90 Terazosin Hcl 10 Mg Capsule 1 Tab Oral Daily 90 Past Home Medications Medication Directions Ordered Status Albuterol Sulfate (Ventolin Hfa) 18 Gm Hfa.aer.ad, Discontinued Albuterol/Ipratropium (Combivent Inhaler) 14.7 Gm Aero, 2 Puffs Q6h Prn Discontinued Acntu-E-Uuhegrpoakrwm (Beano) 1 Each Tablet, 2 Tab Oral Daily Discontinued Yzfoa-G-Euzykelzbgfiv (Beano) 1 Each Tablet, 2 Tab Oral Daily Discontinued Amlodipine Besylate/Benazepril (Lotrel 10-40 Mg Capsule) 1 Each Capsule, 1 Each Oral Daily Discontinued Amlodipine Besylate/Benazepril (Amlodipine-Benazepril 10-40 Mg) 1 Each Capsule , 1 Each Oral Daily Discontinued Aspirin (Ecotrin) 81 Mg Tablet.dr, 81 Mg Oral Daily Discontinued Aspirin 81 Mg Tablet, [...] 150 Mg Oral Twice A Day Discontinued Dabigatran Etexilate Mesylate (Pradaxa) 150 Mg Capsule, 150 Mg Oral Twice A Day Discontinued Diphenhydramine Hcl (Benadryl) 25 Mg Capsule, 25 Mg Oral Qhs Discontinued Diphenhydramine Hcl (Benadryl) 25 Mg Capsule, 25 Mg Oral Discontinued Fexofenadine Hcl (Kika) 60 Mg Tablet, 60 Mg Oral Discontinued Fluticasone Propionate (Flonase) 16 Gm [place].susp, 1 Spr Nasal Twice A Day Discontinued [...] Every 6 Hours as needed Discontinued Ipratropium Butler 0.2 Mg/1 Ml Solution, 0.02 Inhalation Every 6 Hours as needed Discontinued Ipratropium/Albuterol Sulfate (Iprat-Albut 0.5-3(2.5) Mg/3 Ml) 3 Ml Ampul.neb, Discontinued Iron Dextran Complex 50 Mg/1 Ml Vial, Discontinued Levofloxacin 500 Mg Tablet, 1 Tab Oral Daily Discontinued Loratadine (Claritin) 10 Mg Tablet, 10 [...] Times A Day Discontinued Murpirocin , Discontinued Eitzen-3 Fatty Acids (Fish Oil) 500 Mg Capsule, 1000 Mg Oral Daily Discontinued Eitzen-3 Fatty Acids (Fish Oil) 500 Mg Capsule, [...] D , 1000 Intlu Oral Daily Discontinued Warfarin Sodium (Coumadin) 5 Mg Tablet, 5 Mg Oral Daily Discontinued Zertec D , 1 Tab Oral Daily as needed Discontinued Social History Social History Problem Response Recorded Date/Time Onset Date Status Hx Psychiatric Problems No 06/17/2017 10:50pm Not Applicable Not Applicable Hx Eating Disorder No 06/17/2017 10:50pm Not Applicable Not Applicable Hx Substance Use Disorder No 06/17/2017 10:50pm Not Applicable Not Applicable Hx Depression No 06/17/2017 10:50pm Not Applicable Not Applicable Hx Alcohol Use No 06/17/2017 10:50pm Not Applicable Not Applicable Hx Substance Use Treatment No 06/17/2017 10:50pm Not Applicable Not Applicable Hx Physical Abuse No 06/17/2017 10:50pm Not Applicable Not Applicable Smoking Status Start Date Stop Date Current every day smoker Hospital Discharge Instructions No hospital discharge instruction information available. Plan of Care Discharge Date 06/21/17 1:20pm Disposition HOME, SELF-CARE Instructions/Education Provided GI Bleeding Prescriptions See Medication Section Referrals JOSTIN ORTIZ MD (Cardiology) Order Date: 1 Week Entered Date: 06/21/2017 7:58am Address: [address] [place] [id number] Additional Instructions/Education FOLLOW UP WITH CARDIOLOGY IN 1 WEEK. CALL THE OFFICE TO SCHEDULE AN APPOINTMENT. MONITOR FOR SIGNS OF BLEEDING AND RETURN TO ER IF BLOOD IN STOOL. Functional Status Query Response Date Recorded Assistive Devices None June 17, 2017 11:00pm Ambulation Ability Independent June 17, 2017 11:00pm Toileting Ability Independent June 21, 2017 1:00pm Allergies, Adverse Reactions, Alerts No known allergies. Immunizations No immunization information available. Vital Signs Acute Vital Signs Vital Response Date/Time Temperature (Fahrenheit) 97.6 degrees F (97.6 - 99.5) 06/21/2017 11:48am Pulse Pulse Rate (adult) 58 bpm (60 - 90) 06/21/2017 11:48am Respiratory Rate 18 bpm (12 - 24) 06/21/2017 11:48am Blood Pressure 134/67 mm Hg 06/21/2017 11:48am Height 6 ft 1 in 06/17/2017 5:34pm Weight 226 lb 06/17/2017 10:50pm Body Mass Index 29.8 kg/m^2 06/17/2017 10:50pm Results Laboratory Results Test Name Result Units Flags Reference Collection Date/Time Result Date/ Time Comments Differential Total Cells Counted 100 04/05/2017 5:27am [...] Comment ABNORMAL 04/05/2017 5:27am 04/05/2017 7 :08am Urine Color YELLOW YELLOW 03/29/2017 4:20am 03/29/2017 4:32am Urine Clarity CLEAR CLEAR 03/29/2017 4:20am 03/29/2017 4:32am Urine Specific Pace 1.015 1.010-1.025 03/29/2017 4:20am 2017 4:32am Urine pH 5 5 - 7 03/29/2017 4:20am 03/29/2017 4:32am Urine Leukocyte Esterase TRACE H NEGATIVE 03/29/2017 4:20am 2017 4:32am Urine Nitrite NEGATIVE NEGATIVE 03/29/2017 4:20am 03/29/2017 4:32am Urine Protein NEGATIVE NEGATIVE 03/29/2017 4:20am 03/29/2017 4:32am Urine Glucose (UA) NEGATIVE NEGATIVE 03/29/2017 4:20am 03/29/2017 4: 32am Urine Ketones NEGATIVE NEGATIVE 03/29/2017 4:20am 03/29/2017 4:32am Urine Urobilinogen 0.2 mg/dL 0.2 - 1 03/29/2017 4:20am 03/29/2017 4: 32am Urine Bilirubin NEGATIVE NEGATIVE 03/29/2017 4:20am 03/29/2017 4: 32am Urine Blood NEGATIVE NEGATIVE 03/29/2017 4:20am 03/29/2017 4:32am Urine WBC 6-10 /HPF H 0-5 03/29/2017 4:20am 03/29/2017 4:38am Urine RBC 0-5 /HPF 0-5 03/29/2017 4:20am 03/29/2017 4:38am Urine Bacteria FEW /HPF NONE 03/29/2017 4:20am 03/29/2017 4:38am Urine Epithelial Cells RARE /LPF NONE 03/29/2017 4:20am 03/29/2017 4: 38am Influenza Virus Types A,B Antigen NEGATIVE NEGATIVE 03/29/2017 12: 45am 03/29/2017 1:30am Lactic Acid Level 17.3 MG/DL 4.5-19.8 04/02/2017 2:10pm 04/02/2017 2: 43pm Phosphorus Level 2.7 MG/DL 2.3-4.7 04/05/2017 5:27am 04/05/2017 6:20am Iron Level 23 ug/dL L 65-175 04/09/2017 6:35am 04/09/2017 8:14am Total Iron Binding Capacity 342 ug/dL 261-478 04/09/2017 6:35am 2017 8:14am Percent Iron Saturation 7 % L 15-50 04/09/2017 6:35am 04/09/2017 8:14am Transferrin 244 mg/dL 174-364 04/09/2017 6:35am 04/09/2017 8:14am Ferritin 33.32 ng/mL 21.81-274.66 04/09/2017 6:35am 04/09/2017 8:45am Ammonia 39 UG/DL 31-123 03/30/2017 12:20am 03/30/2017 12:38am Creatine Kinase 38 IU/L 30-200 03/29/2017 4:30pm [...] H NEGATIVE 03/29/2017 3:37am 03/29/2017 3: 44am White Blood Count 11.28 x10e3/uL H 4.8-10.8 06/21/2017 6:302017 6:54am Red Blood Count 3.76 x10e6/uL L 4.3-5.7 06/21/2017 6:3006/21/2017 6: 54am Hemoglobin 11.0 g/dL L 14.0-18.0 06/21/2017 6:3006/21/2017 6:54am Hematocrit 34.0 % L 38.2-49.6 06/21/2017 6:3006/21/2017 6:54am Mean Corpuscular Volume 90.4 fL 81-99 06/21/2017 6:3006/21/2017 6: 54am Mean Corpuscular Hemoglobin 29.3 pg 28-32 06/21/2017 6:3006/21/2017 6:54am Mean Corpuscular Hemoglobin Concent 32.4 g/dL 31-35 06/21/2017 6:06/21/2017 6:54am Red Cell Distribution Width 15.6 % H 11.7-14.4 06/21/2017 6:2017 6:54am Platelet Count 210 x10e3/uL 140-360 06/21/2017 6:06/21/2017 6: 54am Neutrophils (%) (Auto) 64.0 % 38.7-80.0 06/21/2017 6:06/21/2017 6: 54am Lymphocytes (%) (Auto) 21.4 % 18.0-39.1 06/21/2017 6:06/21/2017 6: 54am Monocytes (%) (Auto) 9.7 % 4.4-11.3 06/21/2017 6:06/21/2017 6: 54am Eosinophils (%) (Auto) 3.7 % 0.0-6.0 06/21/2017 6:06/21/2017 6: 54am Basophils (%) (Auto) 0.8 % 0.0-1.0 06/21/2017 6:30am 06/21/2017 6:54am IM GRANULOCYTES % 0.4 % 0.0-1.0 06/21/2017 6:30am 06/21/2017 6:54am Neutrophils # (Auto) 7.2 H 2.1-6.9 06/21/2017 6:30am 06/21/2017 6: 54am Lymphocytes # (Auto) 2.4 1.0-3.2 06/21/2017 6:30am 06/21/2017 6:54am Monocytes # (Auto) 1.1 H 0.2-0.8 06/21/2017 6:30am 06/21/2017 6:54am Eosinophils # (Auto) 0.4 0.0-0.4 06/21/2017 6:30am 06/21/2017 6:54am Basophils # (Auto) 0.1 0.0-0.1 06/21/2017 6:30am 06/21/2017 6:54am Absolute Immature Granulocyte (auto 0.04 x10e3/uL 0-0.1 06/21/2017 6: 30am 06/21/2017 6:54am Prothrombin Time 17.9 seconds H 11.9-14.5 06/19/2017 6:20am 06/19/2017 7 :00am Prothromb Time International Ratio 1.60 06/19/2017 6:20am 2017 7:00am Oral Anticoagulant Therapy INR Values: 1. Low Intensity Therapy 1.5 - 2.0 2. Moderate Intensity Therapy 2.0 - 3.0 3. High Intensity Therapy(1) 2.5 - 3.5 4. High Intensity Therapy(2) 3.0 - 4.0 5. Panic Value INR > 5.0 Activated Partial Thromboplast Time 38.5 seconds H 23.8-35.5 06/17/2017 5 :47pm 06/17/2017 6:37pm Sodium Level 141 mmol/L 136-145 06/21/2017 6:30am 06/21/2017 7:20am Potassium Level 3.3 mmol/L L 3.5-5.1 06/21/2017 6:30am 06/21/2017 7: 20am Chloride Level 106 mmol/L 98-107 06/21/2017 6:3006/21/2017 7:20am Carbon Dioxide Level 26 mmol/L 06/21/2017 6:3006/21/2017 7: 20am Anion Gap 12.3 mmol/L 8-06/21/2017 6:3006/21/2017 7:20am Blood Urea Nitrogen 10 mg/dL 09-2106/21/2017 6:3006/21/2017 7:20am Creatinine 0.80 mg/dL 0.72-1.25 06/21/2017 6:3006/21/2017 7:20am BUN/Creatinine Ratio 13 08-2106/21/2017 6:3006/21/2017 7:20am Estimat Glomerular Filtration Rate > 60 ML/MIN 6006/21/2017 6:30 7:20am Ranges were taken from the National Kidney Disease Education Program and the National Kidney Foundation literature. Reference ranges: 60 or greater: Normal 16-59 (for 3 consecutive months): Chronic kidney disease 15 or less: Kidney failure Glucose Level 104 mg/dL 74-118 06/21/2017 6:3006/21/2017 7:20am Calcium Level 9.0 mg/dL 8.4-10.2 06/21/2017 6:3006/21/2017 7:20am Bedside Glucose 121 mg/dL H 70-120 06/21/2017 11:42am 06/21/2017 11: 49am Meter ID: [id number] Magnesium Level 1.5 MG/DL 1.3-2.1 06/18/2017 6:4606/18/2017 12:41pm Total Bilirubin 0.9 mg/dL 0.2-1.2 06/18/2017 6:4606/18/2017 7:52am Aspartate Amino Transf (AST/SGOT) 20 IU/L 5-34 06/18/2017 6:462017 7:52am Alanine Aminotransferase (ALT/SGPT) 6 IU/L 0-55 06/18/2017 6:4606/18 7:52am Total Protein 6.7 g/dL 6.5-8.1 06/18/2017 6:46am 06/18/2017 7:52am Albumin 3.6 g/dL 3.5-5.0 06/18/2017 6:46am 06/18/2017 7:52am Globulin 3.1 g/dL 2.3-3.5 06/18/2017 6:46am 06/18/2017 7:52am Albumin/Globulin Ratio 1.2 0.8-2.0 06/18/2017 6:46am 06/18/2017 7: 52am Alkaline Phosphatase 63 IU/L 40-150 06/18/2017 6:46am 06/18/2017 7: 52am B-Type Natriuretic Peptide 135.6 pg/mL H 0-100 06/17/2017 5:47pm 2017 6:49pm Microbiology Results Procedure Source Organism/Result Collection Date/Time Result Date/Time Result Status Blood Culture Blood NO GROWTH AFTER 5 DAYS, FINAL REPORT 03/29/2017 12: 45am 04/03/2017 1:09am Final Sputum Culture Sputum, Expectorated Sputum STAPHYLOCOCCUS AUREUS-MRSA 2017 9:25am 04/03/2017 6:44am Final [place] [id number] Patient Name: ROSE DU MR # :[id number] : 1940 Age/Sex: 76/M Admit Physician: CARA CASTANEDA MD Admit Date: 06/17/17 Location/Room/Bed: [facility] 102-1 Discharge Date: Report: Discharge Summary NO DICTATION SAMANTHA ESCOBAR MD Job#: [id number] CQ Dictated By: SAMANTHA ESCOBAR MD Transcribed By: SMEDS on 06/19/17 <Electronically signed by SAMANTHA ESCOBAR MD>06/19/17 1737 Procedures Procedure Status Date Provider(s) TRANSFUSE NONAUT RED BLOOD CELLS IN PERIPH VEIN, PERC Completed 03/29/17 CARA CASTANEDA MD RESPIRATORY VENTILATION, GREATER THAN 96 CONSECUTIVE HOURS Completed RAMONA GARCIA MD TRANSFUSE NONAUT FROZEN PLASMA IN PERIPH VEIN, PERC Completed 03/29/17 CARA CASTANEDA MD EXCISION OF STOMACH, PYLORUS, ENDO, DIAGN Completed 04/05/17 KIRSTIE CASTANEDA MD EXCISION OF STOMACH, ENDO, DIAGN Completed 04/05/17 KIRSTIE CASTANEDA MD INSERTION OF ENDOTRACHEAL AIRWAY INTO TRACHEA, VIA OPENING Completed RAMONA GARCIA MD INSERTION OF INFUSION DEV INTO SUP VENA CAVA, PERC APPROACH Completed CARA CASTANEDA MD Colonoscopy with polypectomy Completed 06/19/17 KIRSTIE CASTANEDA MD X-ray of chest, two views Active 03/29/17 MARILU HAIDER MD Computed tomography of abdomen and pelvis with contrast Active 03/29/17 MARILU HAIDER MD Computed tomography of brain without radiopaque contrast Active 03/29/17 MARILU HAIDER MD Encounters Encounter Location Arrival/Admit Date Discharge/Depart Date Attending Provider Discharged Inpatient [facility] 06/17/17 9:28pm 06/21/17 1:20pm CARA CASTANEDA MD Registered Referred [facility] 04/17/17 5:05pm CARA CASTANEDA MD Registered Referred [facility] 04/17/17 9:53am CARA CASTANEDA MD Registered Referred [facility] 04/13/17 11:57am CARA CASTANEDA MD Registered [facility]erred [facility] 04/11/17 5:03pm CARA CASTANEDA MD Discharged Inpatient [facility] 03/29/17 6:32am 04/10/17 3:15pm CARA CASTANEDA MD
[2017-07-02 12:43] LABS: BASOPHILS # (AUTO) 0.1 (0.0-0.1); BASOPHILS % 0.8 % (0.0-1.0); EOSINOPHILS # (AUTO) 0.2 (0.0-0.4); HEMATOCRIT 34.3 % (38.2-49.6); HEMOGLOBIN 10.9 g/dL (14.0-18.0); LYMPHOCYTES # (AUTO) 2.5 (1.0-3.2); LYMPHOCYTES % 25.4 % (18.0-39.1); MEAN CORPUSCULAR HEMOGLOBIN 29.5 pg (28-32); MEAN CORPUSCULAR HGB CONC 31.8 g/dL (31-35); MEAN CORPUSCULAR VOLUME 92.7 fL (81-99); MONOCYTES # (AUTO) 0.6 (0.2-0.8); MONOCYTES % 6.4 % (4.4-11.3); NEUTROPHILS # (AUTO) 6.5 (2.1-6.9); NEUTROPHILS % 65.1 % (38.7-80.0); PLATELET COUNT 265 x10e3/uL (140-360); RED CELL DISTRIBUTION WIDTH 15.9 % (11.7-14.4)
[2017-07-02 12:54] LABS: INR 1.08; PROTHROMBIN TIME 13.2 seconds (11.9-14.5)
[2017-07-02 12:55] LABS: PARTIAL THROMBOPLASTIN TIME 25.8 seconds (23.8-35.5)
[2017-07-02 13:03] LABS: ALANINE AMINOTRANSFERASE 6 IU/L (0-55); ALBUMIN 3.6 g/dL (3.5-5.0); ALBUMIN/GLOBULIN RATIO 1.1 (0.8-2.0); ALKALINE PHOSPHATASE 66 IU/L (40-150); ANION GAP 16.4 mmol/L (8-16); BLOOD UREA NITROGEN 17 mg/dL (7-26); BUN/CREATININE RATIO 17 (6-25); CALCIUM 9.2 mg/dL (8.4-10.2); CARBON DIOXIDE 20 mmol/L (22-29); CHLORIDE 107 mmol/L (98-107); CREATININE, SERUM 0.99 mg/dL (0.72-1.25); EST GLOMERULAR FILTRATION RATE > 60 ML/MIN (60-); GLUCOSE 133 mg/dL (74-118); POTASSIUM 4.4 mmol/L (3.5-5.1); SODIUM 139 mmol/L (136-145)
--- NOTE | 2017-07-02 15:47 | Diagnostic Imaging Report ---
EXAM: XR CHEST 1 VIEW DATE: 07/02/2017 3:08 PM INDICATION: Shortness of breath COMPARISON: 06/17/2017 FINDINGS: Lines and Tubes: None Heart and Mediastinum: Accentuated by portable technique/lung volumes. Lungs and Pleura: Mild bilateral airspace opacities are present which could represent edema and/or pneumonia. Skinfold overlies left chest. Bones and Soft Tissues: No acute findings. IMPRESSION: 1. Mild scattered airspace opacities suggesting edema and/or pneumonia. Signed by: Dr. Ramón Loaiza MD on 07/02/2017 3:44 PM
--- NOTE | 2017-07-02 15:55 | History and Physical ---
CHIEF COMPLAINT: Lightheadedness and dark stool. HISTORY OF PRESENT ILLNESS: This is a 76-year-old white man who presented to [facility] Emergency Room with complaints of feeling faint and weak since early this morning. Moreover, he states that since this morning he has had dark stools. This gentleman unfortunately has a history of recurrent upper gastrointestinal bleeding secondary to endoscopically proven duodenal ulcers. The patient states he does take clopidogrel to help mitigate the risk of stroke since he has atrial fibrillation. In May 2017, the patient presented to [facility] with upper gastrointestinal bleeding. At that time, warfarin therapy was discontinued. The patient states he is slightly short of breath but not worse than usual. The patient denies chest pain or tightness. The patient states he does use a CPAP machine at night to sleep. When the patient left the hospital on June 21, 2017, his hemoglobin was 11 g/dL. On this admission, the patient's hemoglobin is 10.9 g/dL. White blood cell count is 9900 with 65% segmented neutrophils. The patient's platelets are 265,000. PT and INR are 13.1 and 1.08 respectively. The patient's stool is Hemoccult positive on this admission. The patient was admitted for further evaluation and treatment. REVIEW OF SYSTEMS GENERAL: Weight has been stable. No fever or chills. He does feel lightheaded and faint since this morning. HEENT: No headache. No vision changes. CARDIOVASCULAR: Chronic shortness of breath, not worse than usual. Denies any chest pain, tightness or palpitations. GI: Complains of dark stools since this morning. Denies any abdominal pain. : Denies any BPH or UTI symptoms. NEUROMUSCULAR: No limb weakness or numbness. ALLERGIES: NO KNOWN DRUG ALLERGIES. FAMILY HISTORY: Mother had type-2 diabetes mellitus, hypertension, congestive heart failure. SOCIAL HISTORY: This man is and lives with his . He is retired. He is a tobacco smoker. Denies any alcohol use. SURGICAL HISTORY 1. Appendectomy. 2. Cholecystectomy. 3. Whipple surgery. 4. Multiple EGDs. 5. Multiple colonoscopies. PAST MEDICAL HISTORY 1. Coronary artery disease (coronary stent placed in 2007). 2. Chronic diastolic congestive heart failure. 3. Tobacco abuse. 4. COPD. 5. Chronic atrial fibrillation. 6. Endoscopically proven duodenal ulcers (March 2017). 7. Obstructive sleep apnea. 8. Hypertensive heart disease. 9. Type-2 diabetes mellitus. 10. Hyperlipidemia. MEDICATIONS 1. Acetaminophen 650 mg every 6 hours. 2. Albuterol nebulizer treatments twice a day as needed for shortness of breath and wheezing. 3. Amlodipine 10 mg a day. 4. Vitamin C 500 mg a day. 5. Benazepril 40 mg a day. 6. Vitamin D3 1,000 units daily. 7. Kika 60 mg b.i.d. 8. Glimepiride 4 mg p.o. daily. 9. Ipratropium nebulizer treatments twice daily as needed for shortness of breath and wheezing. 10. Metformin 1,000 mg daily. 11. Metoprolol tartrate 50 mg daily. 12. Multivitamin daily. 13. [place]-3 fish oil 1,200 mg once daily. 14. Pantoprazole 40 mg daily. 15. Potassium chloride 10 mEq daily. 16. Simvastatin 40 mg nightly. 17. Terazosin 2 mg nightly. 18. Fiber tablet once daily as needed for constipation. 19. Iron sulfate 65 mg p.o. t.i.d. PHYSICAL EXAMINATION GENERAL: He is awake, alert and fully oriented. He is pleasant and cooperative with exam. His and adult daughter are at bedside. VITAL SIGNS: Height is 6 feet 1 inch, and weight is 226 pounds. Calculated body mass index is 29. Blood pressure is 144/79. Pulse is 80. Respiratory rate is 22. Oxygen saturation is 99% on room air. Temperature 98.3. INTEGUMENT: Skin is warm and dry. No pallor, jaundice or diaphoresis. HEENT: Anicteric sclerae with moist mucous membranes. NECK: Supple. No evidence of jugular venous distention. CARDIOVASCULAR: Distant heart sounds. Regular rate and irregular rhythm. The patient has an S3 gallop. LUNGS: Patient has prolonged expiratory phase. Fine crackles at the base. ABDOMEN: Benign. Normal bowel sounds. Nontender. EXTREMITIES: Trace edema in the bilateral lower legs. NEUROLOGIC: Intact. DIAGNOSES 1. Posthemorrhagic anemia. 2. Endoscopically proven duodenal ulcer (March 2017). 3. Chronic atrial fibrillation. 4. Chronic diastolic congestive heart failure. 5. Coronary artery disease (coronary stents placed in 2007). 6. Chronic obstructive pulmonary disease. 7. Tobacco abuse. 8. Obstructive sleep apnea. PLAN 1. Will stop clopidogrel. 2. Follow hemoglobin and hematocrit. 3. Consult gastroenterology. 4. Will start a proton pump inhibitor intravenously. 5. Order chest x-ray since the patient may have acute congestive heart failure. 6. The patient will use a CPAP machine at night. I spent 45 minutes in the care of this chronically ill patient. Job#: [id number] MANUEL
[2017-07-02] MEDS ORDERED: SODIUM CHLORIDE 0.9% 1000ML 1,000 ML ONE (15:56)
[2017-07-02 16:56] VITALS: BP 149/71
[2017-07-02 17:21] VITALS: BP 149/71
[2017-07-02 17:36] VITALS: BP 149/71
[2017-07-02 18:54] LABS: BASOPHILS # (AUTO) 0.1 (0.0-0.1); BASOPHILS % 0.6 % (0.0-1.0); EOSINOPHILS # (AUTO) 0.3 (0.0-0.4); EOSINOPHILS % 2.4 % (0.0-6.0); HEMATOCRIT 29.5 % (38.2-49.6); HEMOGLOBIN 9.2 g/dL (14.0-18.0); LYMPHOCYTES # (AUTO) 3.4 (1.0-3.2); LYMPHOCYTES % 30.2 % (18.0-39.1); MEAN CORPUSCULAR HEMOGLOBIN 28.5 pg (28-32); MEAN CORPUSCULAR HGB CONC 31.2 g/dL (31-35); MEAN CORPUSCULAR VOLUME 91.3 fL (81-99); MONOCYTES # (AUTO) 0.9 (0.2-0.8); MONOCYTES % 8.3 % (4.4-11.3); NEUTROPHILS # (AUTO) 6.5 (2.1-6.9); NEUTROPHILS % 58.1 % (38.7-80.0); PLATELET COUNT 314 x10e3/uL (140-360); RED BLOOD COUNT 3.23 x10e6/uL (4.3-5.7); RED CELL DISTRIBUTION WIDTH 15.7 % (11.7-14.4)
[2017-07-02 20:00] VITALS: BP 148/68
[2017-07-02] MEDS ORDERED: ALLEGRA ALLERG180 MG PO (20:46)
[2017-07-02] MEDS ORDERED: IPRAT-ALBUT 0.5-3 ML INH (20:49)
[2017-07-02] MEDS ORDERED: PLAVIX75 MG PO (20:49)
[2017-07-02] MEDS: AMLODIPINE BESYLATE 10 MG TAB PO SCH (21:00)
[2017-07-02] MEDS: SIMVASTATIN 40 MG TAB PO SCH (21:00)
[2017-07-02] MEDS ORDERED: ACETAMINOPHEN 325 MG TAB PO PRN (21:00)
[2017-07-02] MEDS ORDERED: BENAZEPRIL HCL PO SCH (21:00)
[2017-07-02] MEDS: TERAZOSIN HCL 5 MG CAP PO SCH (21:24)
[2017-07-02] MEDS: ALBUTEROL/IPRATROPIUM 3 ML NEB INH SCH (22:00)
[2017-07-03] VITALS (8 sets, daily range): BP systolic 108–136; BP diastolic 58–77
[2017-07-03 00:36] LABS: BASOPHILS % 0.4 % (0.0-1.0); EOSINOPHILS # (AUTO) 0.2 (0.0-0.4); EOSINOPHILS % 2.3 % (0.0-6.0); HEMATOCRIT 24.9 % (38.2-49.6); LYMPHOCYTES % 30.9 % (18.0-39.1); MEAN CORPUSCULAR HEMOGLOBIN 29.1 pg (28-32); MEAN CORPUSCULAR HGB CONC 32.1 g/dL (31-35); MEAN CORPUSCULAR VOLUME 90.5 fL (81-99); MONOCYTES # (AUTO) 0.8 (0.2-0.8); MONOCYTES % 8.4 % (4.4-11.3); NEUTROPHILS # (AUTO) 5.7 (2.1-6.9); NEUTROPHILS % 57.7 % (38.7-80.0); PLATELET COUNT 274 x10e3/uL (140-360); RED BLOOD COUNT 2.75 x10e6/uL (4.3-5.7); RED CELL DISTRIBUTION WIDTH 15.9 % (11.7-14.4)
[2017-07-03] MEDS: SODIUM CHLORIDE 0.9% 1000ML 1,000 ML IV SCH ×2 (00:38→21:50)
[2017-07-03] MEDS ORDERED: PANTOPRAZOLE 40 MG 10ML VIAL IV STA (01:02)
[2017-07-03] MEDS ORDERED: PANTOPRAZOL 40MG/SOD CHL 0.9% 250 ML IV SCH (01:15)
[2017-07-03] MEDS: PANTOPRAZOL 40MG/SOD CHL 0.9% 50 ML IV SCH ×4 (01:44→20:37)
[2017-07-03] MEDS ORDERED: SODIUM CHLORIDE 0.9% 250ML 250 ML ONE ×2 (02:11→15:02)
[2017-07-03 06:22] LABS: BASOPHILS % 0.4 % (0.0-1.0); EOSINOPHILS # (AUTO) 0.2 (0.0-0.4); EOSINOPHILS % 2.4 % (0.0-6.0); HEMATOCRIT 20.7 % (38.2-49.6); LYMPHOCYTES # (AUTO) 2.9 (1.0-3.2); LYMPHOCYTES % 28.8 % (18.0-39.1); MEAN CORPUSCULAR HEMOGLOBIN 28.8 pg (28-32); MEAN CORPUSCULAR HGB CONC 31.4 g/dL (31-35); MEAN CORPUSCULAR VOLUME 91.6 fL (81-99); MONOCYTES # (AUTO) 0.8 (0.2-0.8); MONOCYTES % 8.1 % (4.4-11.3); RED BLOOD COUNT 2.26 x10e6/uL (4.3-5.7); RED CELL DISTRIBUTION WIDTH 15.8 % (11.7-14.4)
[2017-07-03 06:37] LABS: HEMOGLOBIN 6.5 g/dL (14.0-18.0)
[2017-07-03 06:38] LABS: PLATELET COUNT 311 x10e3/uL (140-360)
[2017-07-03 06:52] LABS: ALBUMIN 2.8 g/dL (3.5-5.0); ALBUMIN/GLOBULIN RATIO 1.6 (0.8-2.0); ALKALINE PHOSPHATASE 43 IU/L (40-150); ANION GAP 8.7 mmol/L (8-16); BLOOD UREA NITROGEN 15 mg/dL (7-26); BUN/CREATININE RATIO 18 (6-25); CALCIUM 7.8 mg/dL (8.4-10.2); CARBON DIOXIDE 25 mmol/L (22-29); CHLORIDE 111 mmol/L (98-107); CREATININE, SERUM 0.85 mg/dL (0.72-1.25); EST GLOMERULAR FILTRATION RATE > 60 ML/MIN (60-); GLUCOSE 114 mg/dL (74-118); POTASSIUM 3.7 mmol/L (3.5-5.1); SODIUM 141 mmol/L (136-145)
[2017-07-03 06:56] LABS: ALANINE AMINOTRANSFERASE < 6 IU/L (0-55)
[2017-07-03] MEDS ORDERED: SODIUM CHLORIDE 0.9% 250ML 250 ML IV ONE ×2 (07:30→08:30)
[2017-07-03] MEDS ORDERED: FUROSEMIDE INJ 10 MG/ML 2 ML VIAL IV PRN (07:30)
[2017-07-03] MEDS: ALBUTEROL/IPRATROPIUM 3 ML NEB INH SCH ×2 (07:35→19:45)
[2017-07-03] MEDS: FERROUS SULFATE 325 MG TAB PO SCH ×3 (08:00→17:00)
[2017-07-03] MEDS: MULTIVITAMINS/MINERALS TAB PO SCH (09:00)
[2017-07-03] MEDS ORDERED: TERAZOSIN HCL PO SCH (09:00)
[2017-07-03] MEDS: OMEGA 3 POLYUNSAT FATTY ACIDS 1000 MG SOFTGEL PO SCH (09:00)
[2017-07-03] MEDS: CHOLECALCIFEROL 1,000 UNIT TAB PO SCH (09:00)
[2017-07-03] MEDS: METFORMIN HCL 500 MG TAB CR PO SCH ×2 (09:00→17:00)
[2017-07-03] MEDS: AMLODIPINE BESYLATE 10 MG TAB PO SCH (09:00)
[2017-07-03] MEDS: BENAZEPRIL HCL 10 MG TAB PO SCH (09:00)
[2017-07-03] MEDS ORDERED: [UNRECOGNIZED DRUG - OTHER] PO SCH (09:00)
[2017-07-03] MEDS: GLIMEPIRIDE 2 MG TAB PO SCH (09:00)
[2017-07-03] MEDS: LORATADINE 10 MG TAB PO SCH (09:00)
[2017-07-03] MEDS ORDERED: CALCIUM POLYCARBOPHIL 625 MG TAB PO SCH (09:00)
[2017-07-03] MEDS: ASCORBIC ACID 500 MG TAB PO SCH (09:00)
[2017-07-03] MEDS ORDERED: PANTOPRAZOLE 40 MG 10ML VIAL IV SCH (09:00)
[2017-07-03] MEDS ORDERED: FATTY ACIDS PO SCH (09:00)
[2017-07-03] MEDS: CALCIUM POLYCARBOPHIL 625 MG TAB PO SCH (09:00)
[2017-07-03] MEDS: POTASSIUM CHLORIDE 10 MEQ TABCR PO SCH (09:00)
[2017-07-03] MEDS ORDERED: FIBER PO SCH (09:00)
[2017-07-03] MEDS ORDERED: FISH OIL PO SCH (09:00)
[2017-07-03] MEDS ORDERED: OMEGA PO SCH (09:00)
[2017-07-03] MEDS ORDERED: NON-FORMULARY MEDICATION (Ascorbate Calcium (Vitamin C) 500 MG) PO SCH (09:00)
[2017-07-03] MEDS ORDERED: NON-FORMULARY MEDICATION (Fexofenadine Hcl (Allegra Allergy) 180 MG) PO SCH (09:00)
[2017-07-03] MEDS: METOPROLOL TARTRATE 50 MG TAB PO SCH ×2 (09:00→17:00)
[2017-07-03] MEDS ORDERED: NON-FORMULARY MEDICATION ([Iron] 65 MG) PO SCH (09:00)
[2017-07-03 18:38] LABS: BASOPHILS # (AUTO) 0.1 (0.0-0.1); BASOPHILS % 0.6 % (0.0-1.0); EOSINOPHILS # (AUTO) 0.3 (0.0-0.4); EOSINOPHILS % 2.1 % (0.0-6.0); HEMATOCRIT 26.7 % (38.2-49.6); HEMOGLOBIN 8.7 g/dL (14.0-18.0); LYMPHOCYTES # (AUTO) 3.3 (1.0-3.2); LYMPHOCYTES % 27.4 % (18.0-39.1); MEAN CORPUSCULAR HEMOGLOBIN 29.2 pg (28-32); MEAN CORPUSCULAR HGB CONC 32.6 g/dL (31-35); MEAN CORPUSCULAR VOLUME 89.6 fL (81-99); MONOCYTES # (AUTO) 1.1 (0.2-0.8); MONOCYTES % 8.8 % (4.4-11.3); NEUTROPHILS # (AUTO) 7.3 (2.1-6.9); NEUTROPHILS % 60.8 % (38.7-80.0); PLATELET COUNT 286 x10e3/uL (140-360); RED BLOOD COUNT 2.98 x10e6/uL (4.3-5.7); RED CELL DISTRIBUTION WIDTH 16.7 % (11.7-14.4)
[2017-07-03] MEDS: TERAZOSIN HCL 5 MG CAP PO SCH (20:38)
[2017-07-03] MEDS: SIMVASTATIN 40 MG TAB PO SCH (20:38)
[2017-07-04] VITALS (7 sets, daily range): BP systolic 107–137; BP diastolic 62–69
[2017-07-04] MEDS: PANTOPRAZOL 40MG/SOD CHL 0.9% 50 ML IV SCH ×5 (02:30→20:33)
[2017-07-04 06:48] LABS: BASOPHILS # (AUTO) 0.1 (0.0-0.1); BASOPHILS % 0.6 % (0.0-1.0); EOSINOPHILS # (AUTO) 0.3 (0.0-0.4); EOSINOPHILS % 3.3 % (0.0-6.0); HEMATOCRIT 24.3 % (38.2-49.6); HEMOGLOBIN 7.7 g/dL (14.0-18.0); LYMPHOCYTES # (AUTO) 2.7 (1.0-3.2); LYMPHOCYTES % 27.8 % (18.0-39.1); MEAN CORPUSCULAR HEMOGLOBIN 29.1 pg (28-32); MEAN CORPUSCULAR HGB CONC 31.7 g/dL (31-35); MEAN CORPUSCULAR VOLUME 91.7 fL (81-99); MONOCYTES # (AUTO) 0.8 (0.2-0.8); MONOCYTES % 8.4 % (4.4-11.3); NEUTROPHILS # (AUTO) 5.7 (2.1-6.9); NEUTROPHILS % 59.5 % (38.7-80.0); PLATELET COUNT 251 x10e3/uL (140-360); RED BLOOD COUNT 2.65 x10e6/uL (4.3-5.7); RED CELL DISTRIBUTION WIDTH 17.2 % (11.7-14.4)
[2017-07-04] MEDS: ALBUTEROL/IPRATROPIUM 3 ML NEB INH SCH ×2 (07:17→19:30)
[2017-07-04] MEDS: SODIUM CHLORIDE 0.9% 1000ML 1,000 ML IV SCH ×2 (07:45→15:45)
[2017-07-04] MEDS: FERROUS SULFATE 325 MG TAB PO SCH ×3 (08:00→17:00)
[2017-07-04] MEDS: GLIMEPIRIDE 2 MG TAB PO SCH (09:00)
[2017-07-04] MEDS: MULTIVITAMINS/MINERALS TAB PO SCH (09:00)
[2017-07-04] MEDS: CALCIUM POLYCARBOPHIL 625 MG TAB PO SCH (09:00)
[2017-07-04] MEDS: LORATADINE 10 MG TAB PO SCH (09:00)
[2017-07-04] MEDS: BENAZEPRIL HCL 10 MG TAB PO SCH (09:00)
[2017-07-04] MEDS: ASCORBIC ACID 500 MG TAB PO SCH (09:00)
[2017-07-04] MEDS: CHOLECALCIFEROL 1,000 UNIT TAB PO SCH (09:00)
[2017-07-04] MEDS: METOPROLOL TARTRATE 50 MG TAB PO SCH ×2 (09:00→17:00)
[2017-07-04] MEDS: AMLODIPINE BESYLATE 10 MG TAB PO SCH (09:00)
[2017-07-04] MEDS: OMEGA 3 POLYUNSAT FATTY ACIDS 1000 MG SOFTGEL PO SCH (09:00)
[2017-07-04] MEDS: METFORMIN HCL 500 MG TAB CR PO SCH ×2 (09:00→17:00)
[2017-07-04] MEDS: POTASSIUM CHLORIDE 10 MEQ TABCR PO SCH (09:45)
--- NOTE | 2017-07-04 12:46 | Operative Report ---
DATE OF PROCEDURE: July 04, 2017 REFERRING PHYSICIAN: Dr. Srinath Quevedo. PROCEDURE PERFORMED: Esophagogastroduodenoscopy. INDICATIONS FOR ESOPHAGOGASTRODUODENOSCOPY: Anemia, history of melena, patient with past history of peptic ulcer disease. MEDICATION: Patient was done under MAC. Please see anesthesiologist's note. PROCEDURE: With patient in the left lateral decubitus position, the flexible fiberoptic Olympus gastroscope was introduced into the esophagus under direct visualization without any difficulty. The esophagus appeared to be within normal limits. The scope was then advanced with ease into the stomach, traversing a small sliding hiatal hernia. Mucosa overlying the antrum and the body revealed some patchy areas of erythema. The pylorus was of normal contour and shape, was intubated with ease, and the scope was advanced all the way to the 2nd portion of the duodenum. The scope was then withdrawn slowly. Mucosa overlying the proximal 2nd portion grossly appeared to be within normal limits. The previously described ulcer in the distal bulb appeared to be well healed. The scope was then withdrawn back into the stomach and retroflexed, and mucosa overlying the fundus and the cardia appeared to be within normal limits. The scope was then straightened out. The stomach was decompressed. The scope was subsequently withdrawn. Patient tolerated the procedure well. IMPRESSION: 1. Normal esophagus. 2. Small sliding hiatal hernia. 3. Gastritis, mild. 4. Previously described duodenal ulcer, well healed. PLAN: Follow H\T\H. Continue current therapy. Will get a GI bleed scan. If negative, will proceed with a small-bowel series. Job#: [id number] EV cc:SRINATH QUEVEDO DO
[2017-07-04 15:32] LABS: BASOPHILS # (AUTO) 0.1 (0.0-0.1); BASOPHILS % 0.7 % (0.0-1.0); EOSINOPHILS # (AUTO) 0.4 (0.0-0.4); EOSINOPHILS % 3.2 % (0.0-6.0); HEMATOCRIT 25.9 % (38.2-49.6); HEMOGLOBIN 8.3 g/dL (14.0-18.0); LYMPHOCYTES # (AUTO) 3.1 (1.0-3.2); LYMPHOCYTES % 26.4 % (18.0-39.1); MEAN CORPUSCULAR HEMOGLOBIN 28.9 pg (28-32); MEAN CORPUSCULAR VOLUME 90.2 fL (81-99); MONOCYTES # (AUTO) 1.1 (0.2-0.8); MONOCYTES % 9.1 % (4.4-11.3); NEUTROPHILS # (AUTO) 7.1 (2.1-6.9); NEUTROPHILS % 60.3 % (38.7-80.0); PLATELET COUNT 300 x10e3/uL (140-360); RED BLOOD COUNT 2.87 x10e6/uL (4.3-5.7); RED CELL DISTRIBUTION WIDTH 17.2 % (11.7-14.4)
[2017-07-04] MEDS ORDERED: LIDOCAINE HCL 2% LOCAL INJ 5 ML SDV VIAL INJ ONE (17:29)
[2017-07-04] MEDS ORDERED: PROPOFOL IV EMULSION 10 MG/ML 20 ML VIAL ONE (17:29)
[2017-07-04] MEDS ORDERED: MIDAZOLAM HCL 2 MG/2 ML VIAL ONE (17:50)
[2017-07-04] MEDS ORDERED: FENTANYL CITRATE/PF 100MCG/2 ML INJ ONE (17:50)
--- NOTE | 2017-07-04 18:55 | Diagnostic Imaging Report ---
Tagged-RBC GI Bleed Study Clinical information: 76-year-old male with anemia and bright red blood in stool 36 hours ago. Discussion: The patient's own red blood cells were labeled with 27.5 mCi of technetium-99m pertechnetate using the in vitro method (UltraTag). Dynamic images of the abdomen were obtained through 60 minutes. Distribution of tracer activity appears physiologic throughout the abdomen. No abnormal accumulation of tracer is seen within the gastrointestinal lumen. Impression: No scan evidence of active gastrointestinal bleeding at this time. Signed by: Dr. Lety Rosario M.D. on 07/04/2017 6:52 PM
[2017-07-04 20:27] LABS: BASOPHILS # (AUTO) 0.1 (0.0-0.1); BASOPHILS % 0.6 % (0.0-1.0); EOSINOPHILS # (AUTO) 0.4 (0.0-0.4); EOSINOPHILS % 3.8 % (0.0-6.0); HEMATOCRIT 24.1 % (38.2-49.6); HEMOGLOBIN 7.7 g/dL (14.0-18.0); LYMPHOCYTES % 26.5 % (18.0-39.1); MEAN CORPUSCULAR HEMOGLOBIN 29.1 pg (28-32); MEAN CORPUSCULAR VOLUME 90.9 fL (81-99); MONOCYTES # (AUTO) 0.9 (0.2-0.8); MONOCYTES % 7.9 % (4.4-11.3); NEUTROPHILS % 60.9 % (38.7-80.0); PLATELET COUNT 278 x10e3/uL (140-360); RED BLOOD COUNT 2.65 x10e6/uL (4.3-5.7); RED CELL DISTRIBUTION WIDTH 17.2 % (11.7-14.4)
[2017-07-04] MEDS: SIMVASTATIN 40 MG TAB PO SCH (20:33)
[2017-07-04] MEDS: TERAZOSIN HCL 5 MG CAP PO SCH (20:33)
[2017-07-04] MEDS ORDERED: GLIMEPIRIDE 2 MG TAB PO SCH (22:00)
[2017-07-05] VITALS (7 sets, daily range): BP systolic 113–120; BP diastolic 58–73
[2017-07-05 00:12] LABS: BASOPHILS # (AUTO) 0.1 (0.0-0.1); BASOPHILS % 0.5 % (0.0-1.0); EOSINOPHILS # (AUTO) 0.4 (0.0-0.4); EOSINOPHILS % 4.2 % (0.0-6.0); HEMOGLOBIN 7.5 g/dL (14.0-18.0); LYMPHOCYTES # (AUTO) 2.9 (1.0-3.2); LYMPHOCYTES % 27.7 % (18.0-39.1); MEAN CORPUSCULAR HEMOGLOBIN 29.4 pg (28-32); MEAN CORPUSCULAR HGB CONC 32.8 g/dL (31-35); MEAN CORPUSCULAR VOLUME 89.8 fL (81-99); MONOCYTES % 9.8 % (4.4-11.3); NEUTROPHILS % 57.4 % (38.7-80.0); PLATELET COUNT 265 x10e3/uL (140-360); RED BLOOD COUNT 2.55 x10e6/uL (4.3-5.7)
[2017-07-05 00:37] LABS: HEMATOCRIT 22.9 % (38.2-49.6)
[2017-07-05 06:51] LABS: BASOPHILS # (AUTO) 0.1 (0.0-0.1); BASOPHILS % 0.6 % (0.0-1.0); EOSINOPHILS # (AUTO) 0.4 (0.0-0.4); EOSINOPHILS % 4.9 % (0.0-6.0); HEMOGLOBIN 7.5 g/dL (14.0-18.0); LYMPHOCYTES % 21.9 % (18.0-39.1); MEAN CORPUSCULAR HEMOGLOBIN 29.6 pg (28-32); MEAN CORPUSCULAR HGB CONC 32.6 g/dL (31-35); MEAN CORPUSCULAR VOLUME 90.9 fL (81-99); MONOCYTES # (AUTO) 0.9 (0.2-0.8); MONOCYTES % 10.5 % (4.4-11.3); NEUTROPHILS # (AUTO) 5.6 (2.1-6.9); NEUTROPHILS % 61.8 % (38.7-80.0); PLATELET COUNT 265 x10e3/uL (140-360); RED BLOOD COUNT 2.53 x10e6/uL (4.3-5.7)
[2017-07-05] MEDS: PANTOPRAZOLE SOD 40 MG TABEC PO SCH ×2 (07:30→17:36)
[2017-07-05] MEDS: SODIUM CHLORIDE 0.9% 1000ML 1,000 ML IV SCH ×2 (07:45→17:36)
[2017-07-05] MEDS: ALBUTEROL/IPRATROPIUM 3 ML NEB INH SCH ×2 (07:55→19:40)
[2017-07-05] MEDS: FERROUS SULFATE 325 MG TAB PO SCH ×4 (08:00→16:05)
[2017-07-05] MEDS: METOPROLOL TARTRATE 50 MG TAB PO SCH ×2 (09:00→17:36)
[2017-07-05] MEDS: METFORMIN HCL 500 MG TAB CR PO SCH ×2 (09:00→17:36)
--- NOTE | 2017-07-05 13:53 | Diagnostic Imaging Report ---
PROCEDURE: SMALL BOWEL SERIES Comparison: None. Indications: GI BLEED Technique: Small bowel follow through exam was performed using oral barium. Preliminary image was obtained before administration of contrast and serial overhead images were obtained after administration of oral barium. Fluoroscopy was performed and spot images were obtained. Findings: SMALL BOWEL FOLLOW THROUGH: Small bowel loops are normal in caliber and distribution. Spot compression views of the terminal ileum are normal. The transit time was normal. IMPRESSION: No acute radiographic abnormality. Dictated by: Timothy Rice M.D. on 07/05/2017 at 13:31 Electronically approved by: Timothy Rice M.D. on 07/05/2017 at 13:31
[2017-07-05] MEDS: LORATADINE 10 MG TAB PO SCH (16:03)
[2017-07-05] MEDS: CALCIUM POLYCARBOPHIL 625 MG TAB PO SCH (16:03)
[2017-07-05] MEDS: MULTIVITAMINS/MINERALS TAB PO SCH (16:03)
[2017-07-05] MEDS: POTASSIUM CHLORIDE 10 MEQ TABCR PO SCH (16:03)
[2017-07-05] MEDS: BENAZEPRIL HCL 10 MG TAB PO SCH (16:03)
[2017-07-05] MEDS: OMEGA 3 POLYUNSAT FATTY ACIDS 1000 MG SOFTGEL PO SCH (16:04)
[2017-07-05] MEDS: ASCORBIC ACID 500 MG TAB PO SCH (16:04)
[2017-07-05] MEDS: CHOLECALCIFEROL 1,000 UNIT TAB PO SCH (16:04)
[2017-07-05] MEDS: AMLODIPINE BESYLATE 10 MG TAB PO SCH (16:04)
[2017-07-05] MEDS ORDERED: GLIMEPIRIDE 2 MG TAB PO SCH (16:30)
[2017-07-05] MEDS: GLIMEPIRIDE 2 MG TAB PO SCH (17:36)
[2017-07-05 18:23] LABS: BASOPHILS # (AUTO) 0.1 (0.0-0.1); BASOPHILS % 0.3 % (0.0-1.0); EOSINOPHILS # (AUTO) 0.4 (0.0-0.4); EOSINOPHILS % 2.2 % (0.0-6.0); HEMATOCRIT 25.2 % (38.2-49.6); HEMOGLOBIN 8.1 g/dL (14.0-18.0); LYMPHOCYTES % 12.2 % (18.0-39.1); MEAN CORPUSCULAR HEMOGLOBIN 29.6 pg (28-32); MEAN CORPUSCULAR HGB CONC 32.1 g/dL (31-35); MONOCYTES # (AUTO) 1.3 (0.2-0.8); MONOCYTES % 7.8 % (4.4-11.3); NEUTROPHILS # (AUTO) 12.4 (2.1-6.9); NEUTROPHILS % 77.3 % (38.7-80.0); PLATELET COUNT 277 x10e3/uL (140-360); RED BLOOD COUNT 2.74 x10e6/uL (4.3-5.7); RED CELL DISTRIBUTION WIDTH 16.9 % (11.7-14.4)
[2017-07-05] MEDS: TERAZOSIN HCL 5 MG CAP PO SCH (20:40)
[2017-07-05] MEDS: SIMVASTATIN 40 MG TAB PO SCH (20:40)
[2017-07-06] VITALS (9 sets, daily range): BP systolic 94–123; BP diastolic 52–65
[2017-07-06] MEDS: SODIUM CHLORIDE 0.9% 1000ML 1,000 ML IV SCH (07:45)
[2017-07-06] MEDS: ALBUTEROL/IPRATROPIUM 3 ML NEB INH SCH ×2 (08:00→20:20)
[2017-07-06] MEDS: MULTIVITAMINS/MINERALS TAB PO SCH (09:22)
[2017-07-06] MEDS: PANTOPRAZOLE SOD 40 MG TABEC PO SCH ×2 (09:22→17:27)
[2017-07-06] MEDS: FERROUS SULFATE 325 MG TAB PO SCH ×3 (09:22→17:27)
[2017-07-06] MEDS: CHOLECALCIFEROL 1,000 UNIT TAB PO SCH (09:22)
[2017-07-06] MEDS: CALCIUM POLYCARBOPHIL 625 MG TAB PO SCH (09:22)
[2017-07-06] MEDS: POTASSIUM CHLORIDE 10 MEQ TABCR PO SCH (09:22)
[2017-07-06] MEDS: METFORMIN HCL 500 MG TAB CR PO SCH ×2 (09:22→17:27)
[2017-07-06] MEDS: ASCORBIC ACID 500 MG TAB PO SCH (09:22)
[2017-07-06] MEDS: LORATADINE 10 MG TAB PO SCH (09:22)
[2017-07-06] MEDS: OMEGA 3 POLYUNSAT FATTY ACIDS 1000 MG SOFTGEL PO SCH (09:23)
[2017-07-06] MEDS: METOPROLOL TARTRATE 50 MG TAB PO SCH (09:23)
[2017-07-06] MEDS: AMLODIPINE BESYLATE 10 MG TAB PO SCH (09:23)
[2017-07-06] MEDS: BENAZEPRIL HCL 10 MG TAB PO SCH (09:23)
--- NOTE | 2017-07-06 14:13 | Consultation ---
DATE OF CONSULTATION: July 06, 2017 CARDIOLOGY CONSULTATION REASON FOR CONSULTATION: Bradycardia. HPI: This is a pleasant, 76-year-old male with multiple hospital admissions for GI bleed and black, tarry stools that presented with blood in the stool. According to him, he has been in the hospital for GI bleeding. He has been removed from Pradaxa and Coumadin, but he is still having the black, tarry stool. He underwent GI scan and small-bowel series that showed no active bleeding. Today cardiology was consulted because his heart rate was in the 50s and 60s. He has a history of chronic AFib and has been on beta tl. He denied any chest pain, any palpitations, any dizziness or shortness of breath. PAST MEDICAL HISTORY: Chronic AFib, sleep apnea, osteoarthritis, acid reflux, hernia, diverticulosis, pancreatitis, anemia, coagulopathy, diabetes, hypertension, hyperlipidemia, COPD, diastolic CHF, small distal abdominal aortic aneurysm, GI bleed, MRSA pneumonia, duodenal ulcer, syncope, CAD with stent, multiple blood transfusions in the past. PAST SURGICAL HISTORY: Pancreatic Whipple, cardiac catheterization with stent placement, appendectomy, cholecystectomy, multiple EGDs and colonoscopy. FAMILY HISTORY: Noncontributory. SOCIAL HISTORY: He smokes a pack of cigarettes daily and lives at home with the family. MEDICATIONS: See med list. ALLERGIES: HE IS NOT ALLERGIC TO ANY MEDICATION. REVIEW OF SYSTEMS: Negative except those mentioned above. He was positive with bright red blood and dark, tarry stool. PHYSICAL EXAMINATION VITALS: Temperature 97.4, heart rate 60, blood pressure 101/55, respirations 20, oxygen saturation 98% on room air. GENERAL: He is awake, alert and oriented times 3. HEENT: Mucous membranes are moist. NECK: Supple. LUNGS: Bilaterally clear to auscultation. CARDIOVASCULAR: Irregularly irregular. ABDOMEN: Soft. NEUROLOGIC: Intact. EXTREMITIES: No edema. LABS: Sodium 141, potassium 3.7, chloride 111, CO2 25, BUN 15, creatinine 0.85. Glucose 114. White blood cells 16.1. Hemoglobin 8.1, hematocrit 25.2, platelets 277. PT 13.2, PTT 25.8, INR 1.08. IMPRESSION 1. Slow atrial fibrillation. 2. Anemia. 3. Coronary artery disease with stent. 4. Tobacco abuse. 5. History of diastolic congestive heart failure. ASSESSMENT AND PLAN 1. His heart rate is controlled. He has occasional bradycardia. 2. We will go ahead and decrease the beta tl to daily and to hold if the heart rate is less than 55 or systolic blood pressure is less than 110. Recent echo showed EF 60% to 65%. 3. He had GI bleed scan and small-bowel series that showed no active bleeding. His Plavix has been on hold. We will put him on low-dose aspirin if okay with GI. Further cardiac workup pending clinical course. Thank you for this consultation. Dictated by Cherelle Argueta NP. Job#: [id number]
[2017-07-06] MEDS: GLIMEPIRIDE 2 MG TAB PO SCH (17:27)
[2017-07-06] MEDS: TERAZOSIN HCL 5 MG CAP PO SCH (20:29)
[2017-07-06] MEDS: SIMVASTATIN 40 MG TAB PO SCH (20:29)
[2017-07-07] VITALS (7 sets, daily range): BP systolic 104–130; BP diastolic 54–67
[2017-07-07] MEDS: ALBUTEROL/IPRATROPIUM 3 ML NEB INH SCH ×2 (06:53→20:05)
[2017-07-07 07:09] LABS: BASOPHILS % 0.3 % (0.0-1.0); EOSINOPHILS # (AUTO) 0.4 (0.0-0.4); EOSINOPHILS % 3.8 % (0.0-6.0); HEMOGLOBIN 7.1 g/dL (14.0-18.0); LYMPHOCYTES # (AUTO) 2.4 (1.0-3.2); LYMPHOCYTES % 24.7 % (18.0-39.1); MEAN CORPUSCULAR VOLUME 93.5 fL (81-99); MONOCYTES % 9.7 % (4.4-11.3); NEUTROPHILS % 61.2 % (38.7-80.0); PLATELET COUNT 293 x10e3/uL (140-360); RED BLOOD COUNT 2.45 x10e6/uL (4.3-5.7); RED CELL DISTRIBUTION WIDTH 16.2 % (11.7-14.4)
[2017-07-07 07:20] LABS: HEMATOCRIT 22.9 % (38.2-49.6)
[2017-07-07 07:24] LABS: ANION GAP 13.4 mmol/L (8-16); BLOOD UREA NITROGEN 7 mg/dL (7-26); BUN/CREATININE RATIO 8 (6-25); CALCIUM 8.6 mg/dL (8.4-10.2); CARBON DIOXIDE 24 mmol/L (22-29); CHLORIDE 109 mmol/L (98-107); EST GLOMERULAR FILTRATION RATE > 60 ML/MIN (60-); GLUCOSE 86 mg/dL (74-118); POTASSIUM 3.4 mmol/L (3.5-5.1); SODIUM 143 mmol/L (136-145)
[2017-07-07] MEDS ORDERED: METOPROLOL TARTRATE 50 MG TAB PO SCH (09:00)
[2017-07-07] MEDS: CALCIUM POLYCARBOPHIL 625 MG TAB PO SCH (09:15)
[2017-07-07] MEDS: PANTOPRAZOLE SOD 40 MG TABEC PO SCH ×2 (09:15→17:29)
[2017-07-07] MEDS: LORATADINE 10 MG TAB PO SCH (09:15)
[2017-07-07] MEDS: FERROUS SULFATE 325 MG TAB PO SCH ×3 (09:15→17:30)
[2017-07-07] MEDS: METFORMIN HCL 500 MG TAB CR PO SCH ×2 (09:15→17:29)
[2017-07-07] MEDS: OMEGA 3 POLYUNSAT FATTY ACIDS 1000 MG SOFTGEL PO SCH (09:16)
[2017-07-07] MEDS: MULTIVITAMINS/MINERALS TAB PO SCH (09:16)
[2017-07-07] MEDS: BENAZEPRIL HCL 10 MG TAB PO SCH (09:16)
[2017-07-07] MEDS: ASCORBIC ACID 500 MG TAB PO SCH (09:16)
[2017-07-07] MEDS: POTASSIUM CHLORIDE 10 MEQ TABCR PO SCH (09:16)
[2017-07-07] MEDS: CHOLECALCIFEROL 1,000 UNIT TAB PO SCH (09:16)
[2017-07-07] MEDS ORDERED: ACETAMINOPHEN 325 MG TAB PO ONE (15:20)
[2017-07-07] MEDS ORDERED: FUROSEMIDE INJ 10 MG/ML 2 ML VIAL IV PRN (15:30)
[2017-07-07] MEDS ORDERED: SODIUM CHLORIDE 0.9% 250ML 250 ML IV ONE (15:30)
[2017-07-07] MEDS: GLIMEPIRIDE 2 MG TAB PO SCH (17:29)
[2017-07-07] MEDS: AMLODIPINE BESYLATE 10 MG TAB PO SCH (17:29)
[2017-07-07] MEDS ORDERED: SODIUM CHLORIDE 0.9% 250ML 250 ML ONE (20:58)
[2017-07-07] MEDS: TERAZOSIN HCL 5 MG CAP PO SCH (21:00)
[2017-07-07] MEDS: SIMVASTATIN 40 MG TAB PO SCH (21:00)
[2017-07-08] VITALS: BP 128/60
[2017-07-08 04:00] VITALS: BP 128/67
[2017-07-08] MEDS: ALBUTEROL/IPRATROPIUM 3 ML NEB INH SCH ×2 (06:24→19:00)
[2017-07-08] MEDS: PANTOPRAZOLE SOD 40 MG TABEC PO SCH ×2 (07:30→16:30)
[2017-07-08] MEDS: METFORMIN HCL 500 MG TAB CR PO SCH ×2 (08:00→17:00)
[2017-07-08] MEDS: FERROUS SULFATE 325 MG TAB PO SCH ×3 (08:00→13:36)
[2017-07-08 08:34] VITALS: BP 131/68
[2017-07-08] MEDS: AMLODIPINE BESYLATE 10 MG TAB PO SCH (09:00)
[2017-07-08] MEDS: ASCORBIC ACID 500 MG TAB PO SCH (09:00)
[2017-07-08] MEDS: BENAZEPRIL HCL 10 MG TAB PO SCH (09:00)
[2017-07-08] MEDS: MULTIVITAMINS/MINERALS TAB PO SCH (09:00)
[2017-07-08] MEDS: CHOLECALCIFEROL 1,000 UNIT TAB PO SCH (09:00)
[2017-07-08] MEDS: CALCIUM POLYCARBOPHIL 625 MG TAB PO SCH (09:00)
[2017-07-08] MEDS: OMEGA 3 POLYUNSAT FATTY ACIDS 1000 MG SOFTGEL PO SCH (09:00)
[2017-07-08] MEDS: POTASSIUM CHLORIDE 10 MEQ TABCR PO SCH (09:00)
[2017-07-08] MEDS: LORATADINE 10 MG TAB PO SCH (09:00)
[2017-07-08 11:38] VITALS: BP 135/69
[2017-07-08 12:29] LABS: BASOPHILS # (AUTO) 0.1 (0.0-0.1); BASOPHILS % 0.6 % (0.0-1.0); EOSINOPHILS # (AUTO) 0.4 (0.0-0.4); EOSINOPHILS % 3.9 % (0.0-6.0); HEMOGLOBIN 9.4 g/dL (14.0-18.0); LYMPHOCYTES # (AUTO) 2.4 (1.0-3.2); LYMPHOCYTES % 23.4 % (18.0-39.1); MEAN CORPUSCULAR HEMOGLOBIN 28.9 pg (28-32); MEAN CORPUSCULAR HGB CONC 32.4 g/dL (31-35); MEAN CORPUSCULAR VOLUME 89.2 fL (81-99); MONOCYTES % 9.6 % (4.4-11.3); NEUTROPHILS # (AUTO) 6.5 (2.1-6.9); NEUTROPHILS % 62.3 % (38.7-80.0); PLATELET COUNT 338 x10e3/uL (140-360); RED BLOOD COUNT 3.25 x10e6/uL (4.3-5.7); RED CELL DISTRIBUTION WIDTH 16.5 % (11.7-14.4)
[2017-07-08 12:44] LABS: ANION GAP 11.5 mmol/L (8-16); BLOOD UREA NITROGEN 7 mg/dL (7-26); BUN/CREATININE RATIO 8 (6-25); CALCIUM 9.3 mg/dL (8.4-10.2); CARBON DIOXIDE 29 mmol/L (22-29); CHLORIDE 102 mmol/L (98-107); CREATININE, SERUM 0.83 mg/dL (0.72-1.25); EST GLOMERULAR FILTRATION RATE > 60 ML/MIN (60-); GLUCOSE 95 mg/dL (74-118); POTASSIUM 3.5 mmol/L (3.5-5.1); SODIUM 139 mmol/L (136-145)
--- NOTE | 2017-07-08 16:24 | Progress Note ---
DATE: July 08, 2017 INTERNAL MEDICINE PROGRESS NOTE Patient is doing well except that he is complaining of some area of swelling and redness on the left forearm. There is an IV line there. It looks like cellulitis. PHYSICAL EXAMINATION VITALS: Blood pressure 135/69, temperature 97.6, heart rate 78 per minute, respiratory rate 17 per minute, oxygen saturation 95%. HEART: Irregularly irregular heart rate. Normal S1 and S2 sounds. LUNGS: Clear bilaterally. ABDOMEN: Soft. EXTREMITIES: Show no evidence of cyanosis or trauma. On the BMP, sodium 139, potassium 3.5, chloride 102, CO2 29, BUN 7, creatinine 0.83, glucose 95. On the CBC, white blood count 10.3, hemoglobin 9.4, hematocrit 29, and platelet count 358,000. PT 13.2. PTT 25.8 and INR 1.08. AST 12, ALT 6, total bilirubin 0.7, alkaline phosphatase 43. FINAL IMPRESSION 1. Cellulitis of the left forearm. 2. Acute anemia. 3. Hypokalemia. 4. Hypertension. 5. Coronary artery disease. 6. Chronic obstructive pulmonary disease. 7. Hypercholesterolemia. PLAN OF TREATMENT: Continue: 1. Albuterol and Atrovent twice a day. 2. Tylenol 650 mg q.6 h. 3. Amlodipine 10 mg daily. 4. Cholecalciferol 1000 units daily. 5. Vitamin C 500 mg daily. 6. Ferrous sulfate 325 mg 3 times a day. 7. Protonix 40 mg twice a day. 8. Multivitamin 1 tablet daily. 9. Benazepril 40 mg daily. 10. Calcium 2500 mg daily. 11. Metoprolol 50 mg daily. 12. Potassium chloride 10 mEq daily. 13. Claritin 10 mg daily. 14. Terazosin 10 mg daily. 15. Furosemide was given before blood transfusion. 16. Simvastatin 40 mg daily. 17. [place]-3 fatty acid 1000 mg twice a day. 18. Glimepiride 4 mg daily. 19. Metformin 1000 mg twice a day. We are going to start him on Bactrim DS 1 tablet twice a day for 10 days for cellulitis of the forearm. Tentative discharge hopefully by tomorrow. Job#: [id number] RI
[2017-07-08] MEDS: GLIMEPIRIDE 2 MG TAB PO SCH (16:30)
[2017-07-08 16:37] VITALS: BP 148/67
[2017-07-08 20:00] VITALS: BP 138/61
[2017-07-08] MEDS: TERAZOSIN HCL 5 MG CAP PO SCH (20:01)
[2017-07-08] MEDS: SIMVASTATIN 40 MG TAB PO SCH (20:01)
[2017-07-08] MEDS: TRIMETHOPRIM/SULFAMETHOXAZOLE 160-800 MG TAB PO SCH (20:01)
[2017-07-09 01:17] VITALS: BP 131/63
[2017-07-09 04:00] VITALS: BP 136/67
[2017-07-09 07:28] LABS: BASOPHILS # (AUTO) 0.1 (0.0-0.1); BASOPHILS % 0.7 % (0.0-1.0); EOSINOPHILS # (AUTO) 0.5 (0.0-0.4); EOSINOPHILS % 4.9 % (0.0-6.0); HEMOGLOBIN 9.3 g/dL (14.0-18.0); LYMPHOCYTES # (AUTO) 2.4 (1.0-3.2); LYMPHOCYTES % 23.3 % (18.0-39.1); MEAN CORPUSCULAR HEMOGLOBIN 29.2 pg (28-32); MEAN CORPUSCULAR HGB CONC 32.1 g/dL (31-35); MEAN CORPUSCULAR VOLUME 90.9 fL (81-99); MONOCYTES # (AUTO) 1.2 (0.2-0.8); MONOCYTES % 11.2 % (4.4-11.3); NEUTROPHILS # (AUTO) 6.2 (2.1-6.9); NEUTROPHILS % 59.6 % (38.7-80.0); PLATELET COUNT 349 x10e3/uL (140-360); RED BLOOD COUNT 3.19 x10e6/uL (4.3-5.7); RED CELL DISTRIBUTION WIDTH 16.2 % (11.7-14.4)
[2017-07-09] MEDS: PANTOPRAZOLE SOD 40 MG TABEC PO SCH ×2 (07:30→16:30)
[2017-07-09] MEDS: FERROUS SULFATE 325 MG TAB PO SCH ×3 (08:00→17:00)
[2017-07-09] MEDS: LORATADINE 10 MG TAB PO SCH (08:01)
[2017-07-09] MEDS: METFORMIN HCL 500 MG TAB CR PO SCH ×2 (08:01→17:00)
[2017-07-09] MEDS: CALCIUM POLYCARBOPHIL 625 MG TAB PO SCH (08:01)
[2017-07-09] MEDS: AMLODIPINE BESYLATE 10 MG TAB PO SCH (08:02)
[2017-07-09] MEDS: OMEGA 3 POLYUNSAT FATTY ACIDS 1000 MG SOFTGEL PO SCH (08:02)
[2017-07-09] MEDS: MULTIVITAMINS/MINERALS TAB PO SCH (08:02)
[2017-07-09] MEDS: BENAZEPRIL HCL 10 MG TAB PO SCH (08:02)
[2017-07-09] MEDS: ASCORBIC ACID 500 MG TAB PO SCH (08:02)
[2017-07-09] MEDS: CHOLECALCIFEROL 1,000 UNIT TAB PO SCH (08:02)
[2017-07-09 08:08] VITALS: BP 141/65
[2017-07-09] MEDS: POTASSIUM CHLORIDE 10 MEQ TABCR PO SCH (09:00)
[2017-07-09] MEDS: TRIMETHOPRIM/SULFAMETHOXAZOLE 160-800 MG TAB PO SCH ×2 (09:00→20:26)
[2017-07-09] MEDS: ALBUTEROL/IPRATROPIUM 3 ML NEB INH SCH ×2 (11:30→19:10)
[2017-07-09 12:13] VITALS: BP 105/64
--- NOTE | 2017-07-09 14:16 | Progress Note ---
DATE: July 09, 2017 INTERNAL MEDICINE PROGRESS NOTE Patient is doing well. No significant complaint. No blood in the stools. No black stools. No abdominal pain. No vomiting. PHYSICAL EXAMINATION VITALS: Blood pressure 141/65, temperature 96.5, heart rate 76 per minute, respiratory rate 18 per minute, oxygen saturation 97%. HEART: Irregularly irregular heart rate. Normal S1 and S2 sounds. LUNGS: Clear bilaterally. ABDOMEN: Soft. EXTREMITIES: Show no evidence of cyanosis or trauma. BLOOD WORK: BMP showed sodium 139, potassium 3.5, chloride 102, CO2 29, BUN 7, creatinine 0.83, glucose 95. On the CBC, white blood count 10.3, hemoglobin 9.3, hematocrit 29, and platelet count of 349,000. PT 13.2, PTT 25.8 and INR 1.08. AST 12, ALT 6, total bilirubin 0.7, alkaline phosphatase 43. FINAL IMPRESSION 1. Acute anemia secondary to gastrointestinal bleed. 2. Cellulitis of the forearm. 3. Hypokalemia. 4. Hypertension. 5. Coronary artery disease. 6. Chronic obstructive pulmonary disease. 7. Hypercholesterolemia. 8. Diabetes mellitus, type 2. 9. Chronic atrial fibrillation. PLAN OF TREATMENT: Anticoagulation would be contraindicated according to the cardiology opinion secondary to several episodes of gastrointestinal bleed. We are going to replace the potassium. We are going to recheck potassium and magnesium level tomorrow. We are going to add hemoglobin and hematocrit tomorrow. 1. Also, continue albuterol and Atrovent mg twice a day. 2. Tylenol 650 mg q.6 h. as needed. 3. Amlodipine 10 mg daily. 4. Cholecalciferol 1000 units daily. 5. Vitamin C 500 mg daily. 6. Ferrous sulfate 325 mg 3 times a day. 7. Protonix 40 mg twice a day. 8. Multivitamin 1 tablet daily. 9. Benazepril 40 mg daily. 10. Calcium 2500 mg daily. 11. Metoprolol 50 mg daily. 12. Potassium chloride 10 mEq daily. 13. Claritin 10 mg daily. 14. Terazosin 10 mg at bedtime. 15. Metformin 1000 mg twice a day for diabetes, type 2. 16. Continue simvastatin 40 mg daily. 17. [place]-3 poly-saturated fatty acid 1000 mg daily. 18. Glimepiride 4 mg once a day. 19. Bactrim 1 tablet twice a day for the cellulitis he has in the forearm. 20. Replace potassium 40 mEq p.o. Recheck BMP tomorrow. CBC tomorrow. Hopefully, he can go home tomorrow. Job#: [id number] RI
[2017-07-09] MEDS: GLIMEPIRIDE 2 MG TAB PO SCH (16:30)
[2017-07-09 16:34] VITALS: BP 129/57
[2017-07-09 20:00] VITALS: BP 127/64
[2017-07-09] MEDS: SIMVASTATIN 40 MG TAB PO SCH (20:26)
[2017-07-09] MEDS: TERAZOSIN HCL 5 MG CAP PO SCH (20:27)
[2017-07-09] MEDS ORDERED: POLYETHYLENE GLYCOL 3350 17 GM PACK PO PRN (23:00)
[2017-07-09] MEDS ORDERED: POLYETHYLENE GLYCOL 3350 17 GM PACK PO ONE (23:00)
[2017-07-10] VITALS (9 sets, daily range): BP systolic 114–150; BP diastolic 58–69
[2017-07-10] MEDS: ALBUTEROL/IPRATROPIUM 3 ML NEB INH SCH ×2 (06:32→20:40)
[2017-07-10 07:03] LABS: BASOPHILS # (AUTO) 0.1 (0.0-0.1); BASOPHILS % 0.7 % (0.0-1.0); EOSINOPHILS # (AUTO) 0.5 (0.0-0.4); EOSINOPHILS % 4.7 % (0.0-6.0); HEMATOCRIT 27.5 % (38.2-49.6); HEMOGLOBIN 8.8 g/dL (14.0-18.0); LYMPHOCYTES # (AUTO) 2.3 (1.0-3.2); LYMPHOCYTES % 23.2 % (18.0-39.1); MEAN CORPUSCULAR HEMOGLOBIN 29.1 pg (28-32); MEAN CORPUSCULAR VOLUME 91.1 fL (81-99); MONOCYTES # (AUTO) 1.3 (0.2-0.8); MONOCYTES % 12.8 % (4.4-11.3); NEUTROPHILS # (AUTO) 5.8 (2.1-6.9); NEUTROPHILS % 58.4 % (38.7-80.0); PLATELET COUNT 369 x10e3/uL (140-360); RED BLOOD COUNT 3.02 x10e6/uL (4.3-5.7); RED CELL DISTRIBUTION WIDTH 15.9 % (11.7-14.4)
[2017-07-10 07:29] LABS: ANION GAP 14.3 mmol/L (8-16); BLOOD UREA NITROGEN 9 mg/dL (7-26); BUN/CREATININE RATIO 10 (6-25); CALCIUM 8.9 mg/dL (8.4-10.2); CARBON DIOXIDE 25 mmol/L (22-29); CHLORIDE 107 mmol/L (98-107); EST GLOMERULAR FILTRATION RATE > 60 ML/MIN (60-); GLUCOSE 90 mg/dL (74-118); POTASSIUM 3.3 mmol/L (3.5-5.1); SODIUM 143 mmol/L (136-145)
[2017-07-10] MEDS ORDERED: POTASSIUM CHLORIDE 20 MEQ TAB CR PO STA (07:54)
[2017-07-10] MEDS: PANTOPRAZOLE SOD 40 MG TABEC PO SCH ×2 (08:45→17:10)
[2017-07-10] MEDS: METFORMIN HCL 500 MG TAB CR PO SCH ×2 (08:45→17:10)
[2017-07-10] MEDS: FERROUS SULFATE 325 MG TAB PO SCH ×3 (08:45→17:10)
[2017-07-10] MEDS: CALCIUM POLYCARBOPHIL 625 MG TAB PO SCH (08:45)
[2017-07-10] MEDS: LORATADINE 10 MG TAB PO SCH (08:45)
[2017-07-10] MEDS: POTASSIUM CHLORIDE 10 MEQ TABCR PO SCH (08:45)
[2017-07-10] MEDS: TRIMETHOPRIM/SULFAMETHOXAZOLE 160-800 MG TAB PO SCH ×2 (08:45→20:22)
[2017-07-10] MEDS: CHOLECALCIFEROL 1,000 UNIT TAB PO SCH (08:46)
[2017-07-10] MEDS: BENAZEPRIL HCL 10 MG TAB PO SCH (08:46)
[2017-07-10] MEDS: OMEGA 3 POLYUNSAT FATTY ACIDS 1000 MG SOFTGEL PO SCH (08:46)
[2017-07-10] MEDS: MULTIVITAMINS/MINERALS TAB PO SCH (08:46)
[2017-07-10] MEDS: ASCORBIC ACID 500 MG TAB PO SCH (08:46)
[2017-07-10] MEDS: AMLODIPINE BESYLATE 10 MG TAB PO SCH (08:46)
[2017-07-10] MEDS: GLIMEPIRIDE 2 MG TAB PO SCH (17:10)
[2017-07-10] MEDS: SIMVASTATIN 40 MG TAB PO SCH (20:22)
[2017-07-10] MEDS: TERAZOSIN HCL 5 MG CAP PO SCH (20:22)
[2017-07-11 00:20] VITALS: BP 131/63
[2017-07-11 04:30] VITALS: BP 143/65
[2017-07-11] MEDS: ALBUTEROL/IPRATROPIUM 3 ML NEB INH SCH (06:35)
[2017-07-11 06:50] LABS: BASOPHILS # (AUTO) 0.1 (0.0-0.1); EOSINOPHILS # (AUTO) 0.5 (0.0-0.4); EOSINOPHILS % 5.7 % (0.0-6.0); HEMATOCRIT 27.7 % (38.2-49.6); HEMOGLOBIN 8.7 g/dL (14.0-18.0); LYMPHOCYTES # (AUTO) 2.2 (1.0-3.2); LYMPHOCYTES % 24.2 % (18.0-39.1); MEAN CORPUSCULAR HEMOGLOBIN 28.5 pg (28-32); MEAN CORPUSCULAR HGB CONC 31.4 g/dL (31-35); MEAN CORPUSCULAR VOLUME 90.8 fL (81-99); MONOCYTES # (AUTO) 1.1 (0.2-0.8); MONOCYTES % 12.3 % (4.4-11.3); NEUTROPHILS # (AUTO) 5.1 (2.1-6.9); NEUTROPHILS % 56.6 % (38.7-80.0); PLATELET COUNT 370 x10e3/uL (140-360); RED BLOOD COUNT 3.05 x10e6/uL (4.3-5.7); RED CELL DISTRIBUTION WIDTH 15.7 % (11.7-14.4)
[2017-07-11 07:02] LABS: ANION GAP 12.6 mmol/L (8-16); BLOOD UREA NITROGEN 9 mg/dL (7-26); BUN/CREATININE RATIO 9 (6-25); CALCIUM 8.9 mg/dL (8.4-10.2); CARBON DIOXIDE 25 mmol/L (22-29); CHLORIDE 109 mmol/L (98-107); CREATININE, SERUM 0.97 mg/dL (0.72-1.25); EST GLOMERULAR FILTRATION RATE > 60 ML/MIN (60-); GLUCOSE 107 mg/dL (74-118); POTASSIUM 3.6 mmol/L (3.5-5.1); SODIUM 143 mmol/L (136-145)
[2017-07-11 07:39] VITALS: BP 119/68
[2017-07-11] MEDS: PANTOPRAZOLE SOD 40 MG TABEC PO SCH (08:27)
[2017-07-11] MEDS: LORATADINE 10 MG TAB PO SCH (08:27)
[2017-07-11] MEDS: FERROUS SULFATE 325 MG TAB PO SCH ×2 (08:27→12:35)
[2017-07-11] MEDS: TRIMETHOPRIM/SULFAMETHOXAZOLE 160-800 MG TAB PO SCH (08:27)
[2017-07-11] MEDS: METFORMIN HCL 500 MG TAB CR PO SCH (08:27)
[2017-07-11] MEDS: CALCIUM POLYCARBOPHIL 625 MG TAB PO SCH (08:27)
[2017-07-11] MEDS: CHOLECALCIFEROL 1,000 UNIT TAB PO SCH (08:28)
[2017-07-11] MEDS: POTASSIUM CHLORIDE 10 MEQ TABCR PO SCH (08:28)
[2017-07-11] MEDS: BENAZEPRIL HCL 10 MG TAB PO SCH (08:28)
[2017-07-11] MEDS: OMEGA 3 POLYUNSAT FATTY ACIDS 1000 MG SOFTGEL PO SCH (08:28)
[2017-07-11] MEDS: ASCORBIC ACID 500 MG TAB PO SCH (08:28)
[2017-07-11] MEDS: MULTIVITAMINS/MINERALS TAB PO SCH (08:28)
[2017-07-11] MEDS: AMLODIPINE BESYLATE 10 MG TAB PO SCH (08:28)
[2017-07-11 10:12] VITALS: BP 119/68
[2017-07-11 11:49] VITALS: BP 122/65
== END 2017-07-11 13:39 | disposition home or self-care (01) | DRG 378 ==
LOC: ER 11:49 → ERHOLD 15:51 → MED/SURG3 15:52
PROC: 30233R1 Transfusion of Nonautologous Platelets into Peripheral Vein, Percutaneous Approach (ICD-10-PCS; 2017-07-03)
PROC: 30233N1 Transfusion of Nonautologous Red Blood Cells into Peripheral Vein, Percutaneous Approach (ICD-10-PCS; 2017-07-03)
PROC: 0DJ08ZZ Inspection of Upper Intestinal Tract, Via Natural or Artificial Opening Endoscopic (ICD-10-PCS; principal; 2017-07-04 11:01)
DX: K92.2 Gastrointestinal hemorrhage, unspecified (principal); I50.22 Chronic systolic (congestive) heart failure; L03.114 Cellulitis of left upper limb; D62 Acute posthemorrhagic anemia; Z79.01 Long term (current) use of anticoagulants; I25.10 Atherosclerotic heart disease of native coronary artery without angina pectoris; Z95.5 Presence of coronary angioplasty implant and graft; I11.0 Hypertensive heart disease with heart failure; J44.9 Chronic obstructive pulmonary disease, unspecified; I48.2 Chronic atrial fibrillation; E11.9 Type 2 diabetes mellitus without complications; E78.5 Hyperlipidemia, unspecified; Z79.84 Long term (current) use of oral hypoglycemic drugs; G47.33 Obstructive sleep apnea (adult) (pediatric); Z72.0 Tobacco use; K44.9 Diaphragmatic hernia without obstruction or gangrene; K26.9 Duodenal ulcer, unspecified as acute or chronic, without hemorrhage or perforation; E87.6 Hypokalemia; E78.00 Pure hypercholesterolemia, unspecified; K92.1 Melena; D12.0 Benign neoplasm of cecum; K21.9 Gastro-esophageal reflux disease without esophagitis
CPT/HCPCS: 36415; 43235; 71045; 74250; 78278; 80048; 80053; 82270; 82948; 83735; 83880; 85025; 85610; 85730; 86850; 86900; 86920; 86945; 93005; 94640; 97139; 99284; A9512; J1940; J2001; J2250; J7030; J7050; P9016; P9034

== ENCOUNTER → 2018-08-15 | Day surgery (SDC) | payer MEDICARE ==
[2018-08-13 15:25] LABS: BASOPHILS # (AUTO) 0.1 (0.0-0.1); BASOPHILS % 0.5 % (0.0-1.0); EOSINOPHILS # (AUTO) 0.2 (0.0-0.4); EOSINOPHILS % 1.5 % (0.0-6.0); HEMATOCRIT 43.2 % (38.2-49.6); HEMOGLOBIN 13.6 g/dL (14.0-18.0); LYMPHOCYTES # (AUTO) 1.6 (1.0-3.2); LYMPHOCYTES % 14.2 % (18.0-39.1); MEAN CORPUSCULAR HEMOGLOBIN 29.3 pg (28-32); MEAN CORPUSCULAR HGB CONC 31.5 g/dL (31-35); MEAN CORPUSCULAR VOLUME 93.1 fL (81-99); MONOCYTES # (AUTO) 0.9 (0.2-0.8); MONOCYTES % 8.1 % (4.4-11.3); NEUTROPHILS # (AUTO) 8.4 (2.1-6.9); NEUTROPHILS % 75.4 % (38.7-80.0); PLATELET COUNT 303 x10e3/uL (140-360); RED BLOOD COUNT 4.64 x10e6/uL (4.3-5.7); RED CELL DISTRIBUTION WIDTH 14.1 % (11.7-14.4)
[~2018-08-15] MED LIST changes: +ALLEGRA ALLERG180 MG PO; +ASPIRIN325 MG PO; +FENTANYL CITRATE/PF 100MCG/2 ML INJ ONE; +FUROSEMIDE40 MG PO; +GLUCAGON FOR INJ 1 MG VIAL ONE; +HYOSCYAMINE SULFATE 0.5 MG/ML INJ ONE; +IPRAT-ALBUT 0.5-3 ML INH; +PLAVIX75 MG PO; +PROPOFOL IV EMULSION 10 MG/ML 50 ML VIAL ONE; +SIMETHICONE 40 MG/0.6 ML BTL ONE; +VITAMIN B COMP1 EAC1 PO
[2018-08-15 13:10] VITALS: BP 127/54
[2018-08-15 13:22] LABS: WBC,FECAL (FECAL LACTOFERRIN) NEGATIVE (NEGATIVE)
--- NOTE | 2018-08-15 14:11 | Operative Report ---
DATE OF PROCEDURE: 08/15/2018 SURGEON: Seven Avendaño MD PROCEDURE: Colonoscopy and polypectomy. INDICATIONS FOR COLONOSCOPY: History of large a cecal polyp partially resected in previous colonoscopy. MEDICATION: The patient was done under MAC, please see anesthesiologist's note. PROCEDURE IN DETAIL: With the patient in left lateral decubitus position, flexible fiberoptic Olympus colonoscope was inserted into the rectum with ease and advanced all the way to the cecum. Diverticular disease was noted throughout. There was some moderate amount of retained fecal material in the left colon, the right colon was clean. An approximately 1.2 cm sessile lesion was noted in the cecum and that was partially resected per piecemeal electrocautery. Polypectomy site was hemoclipped. The scope was then withdrawn slowly and other than for diverticular disease, the mucosa overlying the ascending, transverse, and whatever was visualized of the descending colon appeared to be within normal limits. There were some patchy areas of intense erythema and edema noted in the sigmoid colon suspicious for possible segmental colitis associated with diverticular disease "SCAD," biopsies were obtained. Four minute polyps were removed per hot biopsy forceps from the rectum. The scope was then retroflexed into the distal rectum and small internal hemorrhoids were noted, none of which was actively bleeding. The scope was then straightened out, it was subsequently withdrawn. The patient tolerated procedure well. IMPRESSION: 1. Pandiverticulosis. 2. Suboptimal prep, left colon. 3. Approximately 1.2 cm sessile polypoid lesion in cecum, partially resected per piecemeal electrocautery and site hemoclipped. 4. ? SCAD, sigmoid colon, biopsies obtained. 5. Rectal polyps, hot biopsied x4. 6. Internal hemorrhoids, none actively bleeding. PLAN: Follow up histology. Follow up stool studies. The patient will need a followup colonoscopy in approximately six months to re-evaluate the cecal lesion and remove any residual polypoid tissue. Seven Avendaño MD [facility] [place] /[id number] cc: Srinath Alexis DO
[2018-08-15 14:52] LABS: C DIFFICILE TOXIN A&B AMP PROB NEGATIVE (NEGATIVE)
== END | disposition home or self-care (01) ==
LOC: OR 10:19
PROVIDERS: ATTEND Internal Medicine Gastroenterology
DX: K64.8 Other hemorrhoids (principal); D12.0 Benign neoplasm of cecum; D12.8 Benign neoplasm of rectum; K57.30 Diverticulosis of large intestine without perforation or abscess without bleeding; K59.00 Constipation, unspecified; K29.70 Gastritis, unspecified, without bleeding; K26.9 Duodenal ulcer, unspecified as acute or chronic, without hemorrhage or perforation; K44.9 Diaphragmatic hernia without obstruction or gangrene; D64.9 Anemia, unspecified; E11.9 Type 2 diabetes mellitus without complications; I48.91 Unspecified atrial fibrillation; J44.9 Chronic obstructive pulmonary disease, unspecified; G47.33 Obstructive sleep apnea (adult) (pediatric); I25.10 Atherosclerotic heart disease of native coronary artery without angina pectoris; I11.0 Hypertensive heart disease with heart failure; I50.9 Heart failure, unspecified; E78.00 Pure hypercholesterolemia, unspecified; F17.210 Nicotine dependence, cigarettes, uncomplicated; Z01.810 Encounter for preprocedural cardiovascular examination; Z01.812 Encounter for preprocedural laboratory examination; Z79.82 Long term (current) use of aspirin; Z79.84 Long term (current) use of oral hypoglycemic drugs; Z68.31 Body mass index [BMI] 31.0-31.9, adult; Z86.73 Personal history of transient ischemic attack (TIA), and cerebral infarction without residual deficits; Z95.5 Presence of coronary angioplasty implant and graft
CPT/HCPCS: 36415 ×2; 45380; 45384; 45388; 82948; 83630; 83993; 85025; 87045; 87177; 87328; 87493; 88305; 93005; J1610; J1980; J2704; 45378; 45385

== ENCOUNTER → 2020-10-22 | Day surgery (SDC) | payer OTHER ==
[2020-10-20 14:15] LABS: HEMATOCRIT 35.6 % (38.2-49.6); HEMOGLOBIN 10.9 g/dL (14.0-18.0); LYMPHOCYTES % 12.3 % (18.0-39.1); MEAN CORPUSCULAR HEMOGLOBIN 28.1 pg (28-32); MEAN CORPUSCULAR HGB CONC 30.6 g/dL (31-35); MEAN CORPUSCULAR VOLUME 91.8 fL (81-99); MONOCYTES % 7.5 % (4.4-11.3); NEUTROPHILS % 77.2 % (38.7-80.0); PLATELET COUNT 268 x10e3/uL (140-360); RED BLOOD COUNT 3.88 x10e6/uL (4.3-5.7); RED CELL DISTRIBUTION WIDTH 18.6 % (11.7-14.4)
[2020-10-20 14:16] LABS: BASOPHILS # (AUTO) 0.1 (0.0-0.1); BASOPHILS % 0.4 % (0.0-1.0); EOSINOPHILS # (AUTO) 0.3 (0.0-0.4); LYMPHOCYTES # (AUTO) 1.6 (1.0-3.2); NEUTROPHILS # (AUTO) 9.9 (2.1-6.9)
[~2020-10-22] MED LIST changes: -FENTANYL CITRATE/PF 100MCG/2 ML INJ ONE; -GLUCAGON FOR INJ 1 MG VIAL ONE; -HYOSCYAMINE SULFATE 0.5 MG/ML INJ ONE; -PROPOFOL IV EMULSION 10 MG/ML 50 ML VIAL ONE; -SIMETHICONE 40 MG/0.6 ML BTL ONE; +ZINC PO
[2020-10-22 10:03] VITALS: BP 121/61
== END | disposition home or self-care (01) ==
LOC: OR 07:38
PROVIDERS: ATTEND Internal Medicine Gastroenterology
DX: Q27.33 Arteriovenous malformation of digestive system vessel (principal); D12.4 Benign neoplasm of descending colon; K62.1 Rectal polyp; K29.70 Gastritis, unspecified, without bleeding; K31.5 Obstruction of duodenum; K21.9 Gastro-esophageal reflux disease without esophagitis; K44.9 Diaphragmatic hernia without obstruction or gangrene; K57.30 Diverticulosis of large intestine without perforation or abscess without bleeding; K64.8 Other hemorrhoids; G47.33 Obstructive sleep apnea (adult) (pediatric); J44.9 Chronic obstructive pulmonary disease, unspecified; E11.9 Type 2 diabetes mellitus without complications; I25.10 Atherosclerotic heart disease of native coronary artery without angina pectoris; I11.0 Hypertensive heart disease with heart failure; I50.9 Heart failure, unspecified; E78.5 Hyperlipidemia, unspecified; F17.210 Nicotine dependence, cigarettes, uncomplicated; Z01.812 Encounter for preprocedural laboratory examination; Z20.822 Contact with and (suspected) exposure to COVID-19; Z79.84 Long term (current) use of oral hypoglycemic drugs; Z79.82 Long term (current) use of aspirin; Z86.73 Personal history of transient ischemic attack (TIA), and cerebral infarction without residual deficits; Z95.818 Presence of other cardiac implants and grafts
CPT/HCPCS: 36415 ×2; 43239; 43245; 45384; 45385; 45388; 82948; 85025; U0002; 43450; 45378

== ENCOUNTER 2021-01-30 14:53 | Inpatient (IN) | payer MEDICARE ==
[~2021-01-30] VITALS: Ht 182.9 cm; Wt 108.4 kg
[2021-01-30] MEDS ORDERED: ALBUTEROL/IPRATROPIUM 3 ML NEB ONE (15:13)
[2021-01-30 15:26] LABS: BASOPHILS % 0.2 % (0.0-1.0); HEMATOCRIT 29.7 % (38.2-49.6); HEMOGLOBIN 8.6 g/dL (14.0-18.0); LYMPHOCYTES # (AUTO) 0.4 (1.0-3.2); MEAN CORPUSCULAR HEMOGLOBIN 24.9 pg (28-32); MEAN CORPUSCULAR VOLUME 85.8 fL (81-99); MONOCYTES # (AUTO) 0.1 (0.2-0.8); MONOCYTES % 0.7 % (4.4-11.3); NEUTROPHILS # (AUTO) 9.5 (2.1-6.9); NEUTROPHILS % 94.9 % (38.7-80.0); PLATELET COUNT 349 x10e3/uL (140-360); RED BLOOD COUNT 3.46 x10e6/uL (4.3-5.7); RED CELL DISTRIBUTION WIDTH 16.7 % (11.7-14.4)
[2021-01-30] MEDS ORDERED: LACTATED RINGER'S 500 ML IV ONE (15:30)
[2021-01-30 15:44] LABS: ABG HCO3 17 mmol/L (22-26); ABG PCO2 30 mmHg (35-45); ABG PH 7.37 (7.35-7.45); ABG PO2 81 mmHg (80-105); ABG TCO2 18
[2021-01-30 15:57] LABS: INR 1.15; PROTHROMBIN TIME 15.6 seconds (11.9-14.5)
[2021-01-30 16:04] LABS: CLARITY,URINE HAZY (CLEAR); COLOR,URINE YELLOW (YELLOW)
[2021-01-30 16:05] LABS: KETONES,URINE 1+ (NEGATIVE); LEUKOCYTE ESTERASE ,URINE NEGATIVE (NEGATIVE); NITRITE,URINE NEGATIVE (NEGATIVE); PROTEIN,URINE DIPSTICK 2+ (NEGATIVE); URINE UROBILINOGEN 0.2 mg/dL (0.2 - 1)
[2021-01-30] MEDS ORDERED: ACETAMINOPHEN 1000 MG/100 ML IV NR (16:05)
[2021-01-30 16:09] LABS: BACTERIA,URINE FEW /HPF; EPITHELIAL CELLS,URINE FEW /LPF; RBC,URINE 0-5 /HPF (0-5)
[2021-01-30 16:13] LABS: BAND NEUTROPHILS % (MANUAL) 3 %; EOSINOPHILS % (MANUAL) 1 % (0-7); LYMPHOCYTES % (MANUAL) 5 % (19-48); NEUTROPHILS % (MANUAL) 91 % (40-74); PLATELET ESTIMATE ADEQUATE; PLATELET MORPHOLOGY COMMENT NORMAL
[2021-01-30 16:30] LABS: ALBUMIN 3.5 g/dL (3.5-5.0); ALBUMIN/GLOBULIN RATIO 1.4 (0.8-2.0); ALKALINE PHOSPHATASE 75 IU/L (40-150); ANION GAP 23.5 mmol/L (8-16); BLOOD UREA NITROGEN 16 mg/dL (7-26); BUN/CREATININE RATIO 11 (6-25); CALCIUM 8.1 mg/dL (8.4-10.2); CARBON DIOXIDE 15 mmol/L (22-29); CHLORIDE 108 mmol/L (98-107); CREATININE, SERUM 1.45 mg/dL (0.72-1.25); EST GLOMERULAR FILTRATION RATE 47 ML/MIN (60-); GLUCOSE 207 mg/dL (74-118); POTASSIUM 3.5 mmol/L (3.5-5.1); SODIUM 143 mmol/L (136-145)
[2021-01-30] MEDS ORDERED: CEFEPIME 2 GM in SODIUM CHLORIDE 0.9% 100 ML IV SCH (16:30)
[2021-01-30 16:31] LABS: ALANINE AMINOTRANSFERASE < 6 IU/L (0-55)
[2021-01-30] MEDS ORDERED: ONDANSETRON HCL INJ 2MG/ML 2ML 2 MG/ML VIAL IV PRN (17:00)
[2021-01-30] MEDS ORDERED: ASPIRIN 81 MG CHEW TAB PO ONE (17:00)
[2021-01-30] MEDS ORDERED: SODIUM CHLORIDE 0.9% 1000ML 1,000 ML IV SCH (17:00)
[2021-01-30] MEDS ORDERED: IOPAMIDOL 370 MG/ML 200 ML INFUS..BTL INJ ONE (18:17)
[2021-01-30] MEDS ORDERED: SODIUM CHLORIDE 0.9% 50ML 50 ML ONE (18:17)
[2021-01-30 19:30] VITALS: BP 112/65
[2021-01-30 19:50] VITALS: BP 112/65
[2021-01-30 20:00] VITALS: BP 123/59
[2021-01-30 21:00] VITALS: BP 120/59
[2021-01-30] MEDS ORDERED: SODIUM CHLORIDE 0.9% IV SCH (21:00)
[2021-01-30] MEDS ORDERED: VANCOMYCIN IV SCH (21:00)
[2021-01-30] MEDS ORDERED: Vancomycin IV 500 MG in SODIUM CHLORIDE 0.9% 100 ML 100 ML IV SCH (21:00)
[2021-01-30 21:15] LABS: CREATINE KINASE 57 IU/L (30-200)
[2021-01-30 22:00] VITALS: BP 109/57
[2021-01-30] MEDS ORDERED: ACETAMINOPHEN 325 MG TAB PO PRN (22:30)
[2021-01-30] MEDS ORDERED: Vancomycin IV 1 GM in SODIUM CHLORIDE 0.9% 250ML 250 ML IV SCH (22:30)
[2021-01-30] MEDS ORDERED: DEXTROSE 50% SYRINGE 50 ML IV PRN (22:30)
[2021-01-30] MEDS ORDERED: ALBUTEROL SULF 0.083% NEB SOLN 3 ML NEB NEB PRN (22:30)
[2021-01-30] MEDS ORDERED: DEXAMETHASONE PHOS 4MG/ML 5ML MULTIDOSE VIAL IV ONE (22:30)
[2021-01-30] MEDS ORDERED: HYDRALAZINE HCL 20 MG/ML VIAL IV PRN (22:30)
[2021-01-30 23:00] VITALS: BP 115/65
[2021-01-30] MEDS: LACTATED RINGER'S 1,000 ML INJ SCH (23:22)
[2021-01-30] MEDS ORDERED: DEXAMETHASONE SOD PHOS INJ 4 MG/ML SDV ONE (23:32)
[2021-01-30] MEDS ORDERED: SODIUM CHLORIDE 0.9% IV ONE (23:45)
[2021-01-30] MEDS ORDERED: VANCOMYCIN IV ONE (23:45)
[2021-01-31] VITALS (26 sets, daily range): BP systolic 110–149; BP diastolic 58–94
[2021-01-31 01:52] LABS: CREATINE KINASE MB 5.9 ng/mL (0-5.0)
[2021-01-31] MEDS: LACTATED RINGER'S 1,000 ML INJ SCH ×2 (05:00→17:00)
[2021-01-31] MEDS ORDERED: CEFEPIME 2 GM in SODIUM CHLORIDE 0.9% 100 ML IV SCH (05:00)
[2021-01-31 05:14] LABS: BASOPHILS # (AUTO) 0.1 (0.0-0.1); BASOPHILS % 0.2 % (0.0-1.0); HEMATOCRIT 27.5 % (38.2-49.6); LYMPHOCYTES # (AUTO) 0.5 (1.0-3.2); LYMPHOCYTES % 2.1 % (18.0-39.1); MEAN CORPUSCULAR HEMOGLOBIN 24.5 pg (28-32); MEAN CORPUSCULAR HGB CONC 29.1 g/dL (31-35); MEAN CORPUSCULAR VOLUME 84.1 fL (81-99); MONOCYTES # (AUTO) 0.4 (0.2-0.8); MONOCYTES % 1.6 % (4.4-11.3); NEUTROPHILS # (AUTO) 22.6 (2.1-6.9); NEUTROPHILS % 95.4 % (38.7-80.0); PLATELET COUNT 329 x10e3/uL (140-360); RED BLOOD COUNT 3.27 x10e6/uL (4.3-5.7); RED CELL DISTRIBUTION WIDTH 16.5 % (11.7-14.4)
[2021-01-31 05:42] LABS: ANION GAP 15.8 mmol/L (8-16); CALCIUM 7.8 mg/dL (8.4-10.2); CREATININE, SERUM 1.38 mg/dL (0.72-1.25); POTASSIUM 3.8 mmol/L (3.5-5.1)
[2021-01-31 05:59] LABS: MAGNESIUM 1.4 MG/DL (1.3-2.1); PHOSPHORUS 4.3 MG/DL (2.3-4.7)
[2021-01-31 05:59] LABS: FREE THYROXINE INDEX 1.9685 (1.4-3.8); THYROID STIMULATING HORMONE 0.321 uIU/mL (0.350-4.940)
[2021-01-31] MEDS: PANTOPRAZOLE SOD 40 MG TABEC PO SCH (07:30)
[2021-01-31] MEDS: INSULIN REGULAR, HUMAN 100 UNIT/1 ML SQ SCH ×4 (07:30→21:00)
[2021-01-31] MEDS: METOPROLOL TARTRATE 50 MG TAB PO SCH ×2 (08:07→17:02)
[2021-01-31] MEDS: CEFEPIME 1 GM in SODIUM CHLORIDE 0.9% 50ML 50 ML IV SCH ×2 (08:14→21:42)
[2021-01-31] MEDS: CHOLECALCIFEROL 1,000 UNIT TAB PO SCH (08:15)
[2021-01-31] MEDS: ASPIRIN 325 MG TAB PO SCH (08:15)
[2021-01-31] MEDS: MULTIVITAMINS/MINERALS TAB PO SCH (08:15)
[2021-01-31] MEDS ORDERED: DEXAMETHASONE PHOS 4MG/ML 5ML MULTIDOSE VIAL IV SCH (09:00)
[2021-01-31] MEDS: AMLODIPINE BESYLATE 10 MG TAB PO SCH (09:00)
[2021-01-31] MEDS ORDERED: ACETAMINOPHEN 325 MG TAB PO PRN (12:00)
[2021-01-31] MEDS: METFORMIN HCL 500 MG TAB CR PO SCH (16:54)
[2021-01-31] MEDS: ENOXAPARIN SOD INJ 40 MG/0.4 ML SYR SC SCH (16:54)
[2021-01-31] MEDS ORDERED: GLIMEPIRIDE 2 MG TAB PO SCH (17:00)
[2021-01-31] MEDS: ALBUTEROL/IPRATROPIUM 3 ML NEB INH SCH (19:27)
[2021-01-31] MEDS ORDERED: Vancomycin IV 1 GM in SODIUM CHLORIDE 0.9% 250ML 250 ML IV SCH (21:00)
[2021-01-31] MEDS: SIMVASTATIN 40 MG TAB PO SCH (21:43)
[2021-01-31] MEDS: TERAZOSIN HCL 5 MG CAP PO SCH (21:43)
[2021-02-01] VITALS (26 sets, daily range): BP systolic 115–155; BP diastolic 56–100
[2021-02-01 05:23] LABS: BASOPHILS % 0.2 % (0.0-1.0); HEMATOCRIT 27.3 % (38.2-49.6); HEMOGLOBIN 8.1 g/dL (14.0-18.0); LYMPHOCYTES # (AUTO) 1.4 (1.0-3.2); LYMPHOCYTES % 5.7 % (18.0-39.1); MEAN CORPUSCULAR HEMOGLOBIN 24.8 pg (28-32); MEAN CORPUSCULAR HGB CONC 29.7 g/dL (31-35); MEAN CORPUSCULAR VOLUME 83.5 fL (81-99); MONOCYTES # (AUTO) 2.3 (0.2-0.8); MONOCYTES % 9.2 % (4.4-11.3); NEUTROPHILS # (AUTO) 20.6 (2.1-6.9); NEUTROPHILS % 84.2 % (38.7-80.0); PLATELET COUNT 334 x10e3/uL (140-360); RED BLOOD COUNT 3.27 x10e6/uL (4.3-5.7); RED CELL DISTRIBUTION WIDTH 16.7 % (11.7-14.4)
[2021-02-01 06:01] LABS: ALBUMIN/GLOBULIN RATIO 1.2 (0.8-2.0); ANION GAP 13.6 mmol/L (8-16); CALCIUM 7.8 mg/dL (8.4-10.2); CREATININE, SERUM 1.47 mg/dL (0.72-1.25); POTASSIUM 3.6 mmol/L (3.5-5.1)
[2021-02-01] MEDS: ALBUTEROL/IPRATROPIUM 3 ML NEB INH SCH ×2 (07:06→19:05)
[2021-02-01] MEDS: INSULIN REGULAR, HUMAN 100 UNIT/1 ML SQ SCH ×4 (07:30→20:46)
[2021-02-01] MEDS: PANTOPRAZOLE SOD 40 MG TABEC PO SCH (08:18)
[2021-02-01] MEDS: LORATADINE 10 MG TAB PO SCH (08:18)
[2021-02-01] MEDS: METFORMIN HCL 500 MG TAB CR PO SCH ×2 (08:18→16:59)
[2021-02-01] MEDS: ASPIRIN 325 MG TAB PO SCH (08:18)
[2021-02-01] MEDS: CEFEPIME 1 GM in SODIUM CHLORIDE 0.9% 50ML 50 ML IV SCH ×2 (08:18→20:49)
[2021-02-01] MEDS: MULTIVITAMINS/MINERALS TAB PO SCH (08:19)
[2021-02-01] MEDS: FUROSEMIDE 40 MG TAB PO SCH (08:19)
[2021-02-01] MEDS: POTASSIUM CHLORIDE 10MEQ EA PO SCH (08:19)
[2021-02-01] MEDS: METOPROLOL TARTRATE 50 MG TAB PO SCH ×2 (08:19→17:00)
[2021-02-01] MEDS: FOLIC ACID/CYANOCOB/PYRIDOXINE TAB PO SCH (08:19)
[2021-02-01] MEDS: AMLODIPINE BESYLATE 10 MG TAB PO SCH (08:20)
[2021-02-01] MEDS: ASCORBIC ACID 500 MG TAB PO SCH (08:20)
[2021-02-01] MEDS: OMEGA 3 POLYUNSAT FATTY ACIDS 1000 MG SOFTGEL PO SCH (08:20)
[2021-02-01] MEDS: CHOLECALCIFEROL 1,000 UNIT TAB PO SCH (08:20)
[2021-02-01] MEDS ORDERED: MULTIVITAMINS/MINERALS TAB PO SCH (09:00)
[2021-02-01] MEDS ORDERED: TERAZOSIN HCL 5 MG CAP PO SCH (09:00)
[2021-02-01 11:02] LABS: LYMPHOCYTES % (MANUAL) 6 % (19-48); MONOCYTES % (MANUAL) 4 % (3.4-9.0); NEUTROPHILS % (MANUAL) 90 % (40-74)
[2021-02-01 11:03] LABS: ANISOCYTOSIS SLIGHT; HYPOCHROMASIA SLIGHT; PLATELET ESTIMATE ADEQUATE; PLATELET MORPHOLOGY COMMENT NORMAL; RBC MORPHOLOGY COMMENT NORMAL
[2021-02-01] MEDS: LACTATED RINGER'S 1,000 ML INJ SCH (11:06)
[2021-02-01] MEDS: ENOXAPARIN SOD INJ 40 MG/0.4 ML SYR SC SCH (17:13)
[2021-02-01] MEDS: SIMVASTATIN 40 MG TAB PO SCH (20:46)
[2021-02-01] MEDS: TERAZOSIN HCL 5 MG CAP PO SCH (20:48)
[2021-02-02] VITALS (25 sets, daily range): BP systolic 116–153; BP diastolic 46–83
[2021-02-02] MEDS: LACTATED RINGER'S 1,000 ML INJ SCH ×3 (01:15→23:42)
[2021-02-02 05:08] LABS: BASOPHILS # (AUTO) 0.1 (0.0-0.1); BASOPHILS % 0.5 % (0.0-1.0); EOSINOPHILS # (AUTO) 0.2 (0.0-0.4); EOSINOPHILS % 1.2 % (0.0-6.0); HEMATOCRIT 28.2 % (38.2-49.6); HEMOGLOBIN 8.3 g/dL (14.0-18.0); LYMPHOCYTES # (AUTO) 1.6 (1.0-3.2); LYMPHOCYTES % 9.3 % (18.0-39.1); MEAN CORPUSCULAR HEMOGLOBIN 24.9 pg (28-32); MEAN CORPUSCULAR HGB CONC 29.4 g/dL (31-35); MEAN CORPUSCULAR VOLUME 84.4 fL (81-99); MONOCYTES # (AUTO) 1.9 (0.2-0.8); MONOCYTES % 10.7 % (4.4-11.3); NEUTROPHILS # (AUTO) 13.7 (2.1-6.9); NEUTROPHILS % 77.8 % (38.7-80.0); PLATELET COUNT 323 x10e3/uL (140-360); RED BLOOD COUNT 3.34 x10e6/uL (4.3-5.7); RED CELL DISTRIBUTION WIDTH 16.6 % (11.7-14.4)
[2021-02-02 05:22] LABS: ALBUMIN 2.9 g/dL (3.5-5.0); ALBUMIN/GLOBULIN RATIO 1.2 (0.8-2.0); ANION GAP 12.6 mmol/L (8-16); CALCIUM 8.1 mg/dL (8.4-10.2); CREATININE, SERUM 1.37 mg/dL (0.72-1.25); POTASSIUM 3.6 mmol/L (3.5-5.1)
[2021-02-02] MEDS: ALBUTEROL/IPRATROPIUM 3 ML NEB INH SCH ×2 (07:15→19:40)
[2021-02-02] MEDS: INSULIN REGULAR, HUMAN 100 UNIT/1 ML SQ SCH ×4 (07:30→21:00)
[2021-02-02] MEDS: MULTIVITAMINS/MINERALS TAB PO SCH (09:57)
[2021-02-02] MEDS: CEFEPIME 1 GM in SODIUM CHLORIDE 0.9% 50ML 50 ML IV SCH (09:57)
[2021-02-02] MEDS: FOLIC ACID/CYANOCOB/PYRIDOXINE TAB PO SCH (09:57)
[2021-02-02] MEDS: METOPROLOL TARTRATE 50 MG TAB PO SCH ×2 (09:57→17:11)
[2021-02-02] MEDS: PANTOPRAZOLE SOD 40 MG TABEC PO SCH (09:57)
[2021-02-02] MEDS: POTASSIUM CHLORIDE 10MEQ EA PO SCH (09:57)
[2021-02-02] MEDS: AMLODIPINE BESYLATE 10 MG TAB PO SCH (09:57)
[2021-02-02] MEDS: FUROSEMIDE 40 MG TAB PO SCH (09:57)
[2021-02-02] MEDS: OMEGA 3 POLYUNSAT FATTY ACIDS 1000 MG SOFTGEL PO SCH (09:57)
[2021-02-02] MEDS: METFORMIN HCL 500 MG TAB CR PO SCH ×2 (09:57→17:11)
[2021-02-02] MEDS: LORATADINE 10 MG TAB PO SCH (09:57)
[2021-02-02] MEDS: ASPIRIN 325 MG TAB PO SCH (09:57)
[2021-02-02] MEDS: CHOLECALCIFEROL 1,000 UNIT TAB PO SCH (09:58)
[2021-02-02] MEDS: ASCORBIC ACID 500 MG TAB PO SCH (09:58)
[2021-02-02] MEDS: ENOXAPARIN SOD INJ 40 MG/0.4 ML SYR SC SCH (17:11)
[2021-02-02] MEDS: SODIUM CHLORIDE 0.9% IV SCH (21:00)
[2021-02-02] MEDS: TERAZOSIN HCL 5 MG CAP PO SCH (21:00)
[2021-02-02] MEDS: CEFEPIME IV SCH (21:00)
[2021-02-02] MEDS: SIMVASTATIN 40 MG TAB PO SCH (21:00)
[2021-02-03] VITALS (18 sets, daily range): BP systolic 123–156; BP diastolic 54–108
[2021-02-03 04:59] LABS: BASOPHILS # (AUTO) 0.1 (0.0-0.1); BASOPHILS % 0.6 % (0.0-1.0); EOSINOPHILS # (AUTO) 0.4 (0.0-0.4); EOSINOPHILS % 2.7 % (0.0-6.0); HEMOGLOBIN 8.2 g/dL (14.0-18.0); LYMPHOCYTES # (AUTO) 1.6 (1.0-3.2); LYMPHOCYTES % 12.2 % (18.0-39.1); MEAN CORPUSCULAR HEMOGLOBIN 24.8 pg (28-32); MEAN CORPUSCULAR HGB CONC 29.3 g/dL (31-35); MEAN CORPUSCULAR VOLUME 84.8 fL (81-99); MONOCYTES # (AUTO) 1.7 (0.2-0.8); MONOCYTES % 12.6 % (4.4-11.3); NEUTROPHILS # (AUTO) 9.5 (2.1-6.9); NEUTROPHILS % 71.4 % (38.7-80.0); PLATELET COUNT 315 x10e3/uL (140-360); RED CELL DISTRIBUTION WIDTH 16.3 % (11.7-14.4)
[2021-02-03 05:33] LABS: ALBUMIN/GLOBULIN RATIO 1.2 (0.8-2.0); ANION GAP 14.5 mmol/L (8-16); CALCIUM 8.4 mg/dL (8.4-10.2); CREATININE, SERUM 1.14 mg/dL (0.72-1.25); POTASSIUM 3.5 mmol/L (3.5-5.1)
[2021-02-03] MEDS: ALBUTEROL/IPRATROPIUM 3 ML NEB INH SCH ×2 (07:30→19:13)
[2021-02-03] MEDS: INSULIN REGULAR, HUMAN 100 UNIT/1 ML SQ SCH ×4 (07:30→20:45)
[2021-02-03] MEDS: LORATADINE 10 MG TAB PO SCH (09:44)
[2021-02-03] MEDS: ASPIRIN 325 MG TAB PO SCH (09:44)
[2021-02-03] MEDS: METFORMIN HCL 500 MG TAB CR PO SCH ×2 (09:44→16:36)
[2021-02-03] MEDS: CEFEPIME IV SCH ×2 (09:44→16:36)
[2021-02-03] MEDS: PANTOPRAZOLE SOD 40 MG TABEC PO SCH (09:44)
[2021-02-03] MEDS: SODIUM CHLORIDE 0.9% IV SCH ×2 (09:44→16:36)
[2021-02-03] MEDS: AMLODIPINE BESYLATE 10 MG TAB PO SCH (09:45)
[2021-02-03] MEDS: FUROSEMIDE 40 MG TAB PO SCH ×2 (09:45→16:36)
[2021-02-03] MEDS: FOLIC ACID/CYANOCOB/PYRIDOXINE TAB PO SCH (09:45)
[2021-02-03] MEDS: POTASSIUM CHLORIDE 10MEQ EA PO SCH (09:45)
[2021-02-03] MEDS: MULTIVITAMINS/MINERALS TAB PO SCH (09:45)
[2021-02-03] MEDS: CHOLECALCIFEROL 1,000 UNIT TAB PO SCH (09:45)
[2021-02-03] MEDS: ASCORBIC ACID 500 MG TAB PO SCH (09:45)
[2021-02-03] MEDS: OMEGA 3 POLYUNSAT FATTY ACIDS 1000 MG SOFTGEL PO SCH (09:45)
[2021-02-03] MEDS: METOPROLOL TARTRATE 50 MG TAB PO SCH ×2 (09:45→16:37)
[2021-02-03] MEDS: ENOXAPARIN SOD INJ 40 MG/0.4 ML SYR SC SCH (16:36)
[2021-02-03] MEDS ORDERED: FUROSEMIDE 40 MG TAB PO SCH (17:00)
[2021-02-03] MEDS ORDERED: GUAIFENESIN/CODEINE 5 ML LIQD PO PRN (18:00)
[2021-02-03] MEDS ORDERED: ONDANSETRON HCL 4 MG ORAL DISINTEGRATING TAB PO PRN (18:00)
[2021-02-03] MEDS: SIMVASTATIN 40 MG TAB PO SCH (20:45)
[2021-02-03] MEDS: TERAZOSIN HCL 5 MG CAP PO SCH (20:45)
[2021-02-04] VITALS (7 sets, daily range): BP systolic 125–146; BP diastolic 62–92
[2021-02-04] MEDS: SODIUM CHLORIDE 0.9% IV SCH ×3 (01:09→16:18)
[2021-02-04] MEDS: CEFEPIME IV SCH ×3 (01:09→16:18)
[2021-02-04 06:11] LABS: BASOPHILS # (AUTO) 0.1 (0.0-0.1); BASOPHILS % 0.7 % (0.0-1.0); EOSINOPHILS # (AUTO) 0.4 (0.0-0.4); HEMATOCRIT 27.5 % (38.2-49.6); HEMOGLOBIN 8.1 g/dL (14.0-18.0); LYMPHOCYTES # (AUTO) 1.3 (1.0-3.2); LYMPHOCYTES % 9.7 % (18.0-39.1); MEAN CORPUSCULAR HEMOGLOBIN 24.3 pg (28-32); MEAN CORPUSCULAR HGB CONC 29.5 g/dL (31-35); MEAN CORPUSCULAR VOLUME 82.3 fL (81-99); MONOCYTES # (AUTO) 1.6 (0.2-0.8); MONOCYTES % 12.1 % (4.4-11.3); NEUTROPHILS # (AUTO) 9.8 (2.1-6.9); NEUTROPHILS % 73.9 % (38.7-80.0); PLATELET COUNT 298 x10e3/uL (140-360); RED BLOOD COUNT 3.34 x10e6/uL (4.3-5.7); RED CELL DISTRIBUTION WIDTH 16.2 % (11.7-14.4)
[2021-02-04 06:52] LABS: ALBUMIN 2.9 g/dL (3.5-5.0); ANION GAP 16.2 mmol/L (8-16); CALCIUM 8.9 mg/dL (8.4-10.2); CREATININE, SERUM 1.14 mg/dL (0.72-1.25); POTASSIUM 3.2 mmol/L (3.5-5.1)
[2021-02-04] MEDS: ALBUTEROL/IPRATROPIUM 3 ML NEB INH SCH ×2 (07:00→18:36)
[2021-02-04] MEDS: PANTOPRAZOLE SOD 40 MG TABEC PO SCH (07:30)
[2021-02-04] MEDS: INSULIN REGULAR, HUMAN 100 UNIT/1 ML SQ SCH ×4 (07:30→20:57)
[2021-02-04] MEDS: METFORMIN HCL 500 MG TAB CR PO SCH ×2 (08:00→16:18)
[2021-02-04] MEDS ORDERED: SODIUM CHLORIDE 0.9% 250ML 250 ML ONE (08:34)
[2021-02-04] MEDS: METOPROLOL TARTRATE 50 MG TAB PO SCH ×2 (08:40→16:18)
[2021-02-04] MEDS: ASPIRIN 325 MG TAB PO SCH (08:40)
[2021-02-04] MEDS: LORATADINE 10 MG TAB PO SCH (08:40)
[2021-02-04] MEDS: FUROSEMIDE 40 MG TAB PO SCH ×2 (08:40→16:18)
[2021-02-04] MEDS: POTASSIUM CHLORIDE 10MEQ EA PO SCH (08:40)
[2021-02-04] MEDS: CHOLECALCIFEROL 1,000 UNIT TAB PO SCH (08:41)
[2021-02-04] MEDS: ASCORBIC ACID 500 MG TAB PO SCH (08:41)
[2021-02-04] MEDS: MULTIVITAMINS/MINERALS TAB PO SCH (08:41)
[2021-02-04] MEDS: OMEGA 3 POLYUNSAT FATTY ACIDS 1000 MG SOFTGEL PO SCH (08:41)
[2021-02-04] MEDS: AMLODIPINE BESYLATE 10 MG TAB PO SCH (08:41)
[2021-02-04] MEDS: FOLIC ACID/CYANOCOB/PYRIDOXINE TAB PO SCH (08:41)
[2021-02-04] MEDS ORDERED: POTASSIUM CHLORIDE 10MEQ EA PO ONE (12:00)
[2021-02-04] MEDS: ENOXAPARIN SOD INJ 40 MG/0.4 ML SYR SC SCH (16:18)
[2021-02-04] MEDS: TERAZOSIN HCL 5 MG CAP PO SCH (20:55)
[2021-02-04] MEDS: SIMVASTATIN 40 MG TAB PO SCH (20:55)
[2021-02-05] VITALS (8 sets, daily range): BP systolic 133–153; BP diastolic 43–75
[2021-02-05] MEDS: SODIUM CHLORIDE 0.9% IV SCH ×3 (00:43→17:32)
[2021-02-05] MEDS: CEFEPIME IV SCH ×3 (00:43→17:32)
[2021-02-05 05:07] LABS: INR 1.09
[2021-02-05 05:08] LABS: PARTIAL THROMBOPLASTIN TIME 36.4 seconds (23.8-35.5)
[2021-02-05 05:24] LABS: ANION GAP 16.1 mmol/L (8-16); CREATININE, SERUM 1.29 mg/dL (0.72-1.25); POTASSIUM 3.1 mmol/L (3.5-5.1)
[2021-02-05 05:25] LABS: CALCIUM 8.7 mg/dL (8.4-10.2)
[2021-02-05] MEDS: ALBUTEROL/IPRATROPIUM 3 ML NEB INH SCH (05:45)
[2021-02-05] MEDS ORDERED: HEPARIN SOD (PORCINE) 1000 UNIT/ML 30ML ONE (06:50)
[2021-02-05] MEDS ORDERED: FENTANYL CITRATE/PF 100MCG/2 ML INJ ONE (06:50)
[2021-02-05] MEDS ORDERED: MIDAZOLAM HCL 2 MG/2 ML VIAL ONE (06:50)
[2021-02-05] MEDS ORDERED: SODIUM CHLORIDE 0.9% 1000ML 1,000 ML ONE (06:51)
[2021-02-05] MEDS ORDERED: LIDOCAINE HCL 2% LOCAL 20 ML VIAL ONE (06:51)
[2021-02-05] MEDS ORDERED: HEPARIN SOD/SOD CHLORIDE 2,000 ML ONE (06:51)
[2021-02-05] MEDS ORDERED: IOPAMIDOL 370 MG/ML 200 ML INFUS..BTL INJ ONE (06:51)
[2021-02-05] MEDS ORDERED: NITROGLYCERIN/D5W 200 MCG/ML 0 ML ONE (06:51)
[2021-02-05] MEDS: INSULIN REGULAR, HUMAN 100 UNIT/1 ML SQ SCH ×3 (07:30→16:30)
[2021-02-05] MEDS: CHOLECALCIFEROL 1,000 UNIT TAB PO SCH (09:54)
[2021-02-05] MEDS: PANTOPRAZOLE SOD 40 MG TABEC PO SCH (09:54)
[2021-02-05] MEDS: OMEGA 3 POLYUNSAT FATTY ACIDS 1000 MG SOFTGEL PO SCH (09:54)
[2021-02-05] MEDS: ASPIRIN 325 MG TAB PO SCH (09:54)
[2021-02-05] MEDS: ASCORBIC ACID 500 MG TAB PO SCH (09:55)
[2021-02-05] MEDS: FOLIC ACID/CYANOCOB/PYRIDOXINE TAB PO SCH (09:55)
[2021-02-05] MEDS: MULTIVITAMINS/MINERALS TAB PO SCH (09:55)
[2021-02-05] MEDS: FUROSEMIDE 40 MG TAB PO SCH ×2 (09:55→17:32)
[2021-02-05] MEDS: POTASSIUM CHLORIDE 10MEQ EA PO SCH (09:55)
[2021-02-05] MEDS: METOPROLOL TARTRATE 50 MG TAB PO SCH (09:56)
[2021-02-05] MEDS: LORATADINE 10 MG TAB PO SCH (09:57)
[2021-02-05] MEDS: METFORMIN HCL 500 MG TAB CR PO SCH ×2 (09:57→17:32)
[2021-02-05] MEDS: AMLODIPINE BESYLATE 10 MG TAB PO SCH (09:57)
[2021-02-05] MEDS ORDERED: POTASSIUM CHLORIDE 20 MEQ TAB CR PO ONE (11:30)
[2021-02-05] MEDS ORDERED: METOPROLOL TARTRATE 25 MG TAB PO SCH (17:00)
[2021-02-05] MEDS: ENOXAPARIN SOD INJ 40 MG/0.4 ML SYR SC SCH (17:32)
[2021-02-06] MEDS ORDERED: ASPIRIN 81 MG CHEW TAB PO SCH (09:00)
== END 2021-02-05 18:43 | disposition short-term general hospital (02) | DRG 871 ==
LOC: ER 15:10 → ERHOLD 16:49 → ICU 19:10 → MED/SURG2 02-03 17:40
PROC: 4A023N7 Measurement of Cardiac Sampling and Pressure, Left Heart, Percutaneous Approach (ICD-10-PCS; principal; 2021-02-05)
PROC: B2111ZZ Fluoroscopy of Multiple Coronary Arteries using Low Osmolar Contrast (ICD-10-PCS; 2021-02-05)
PROC: B2151ZZ Fluoroscopy of Left Heart using Low Osmolar Contrast (ICD-10-PCS; 2021-02-05)
DX: A41.9 Sepsis, unspecified organism (principal); J18.9 Pneumonia, unspecified organism; I21.A1 Myocardial infarction type 2; J96.01 Acute respiratory failure with hypoxia; I50.33 Acute on chronic diastolic (congestive) heart failure; J44.1 Chronic obstructive pulmonary disease with (acute) exacerbation; I13.0 Hypertensive heart and chronic kidney disease with heart failure and stage 1 through stage 4 chronic kidney disease, or unspecified chronic kidney disease; J44.0 Chronic obstructive pulmonary disease with (acute) lower respiratory infection; R65.20 Severe sepsis without septic shock; Z86.73 Personal history of transient ischemic attack (TIA), and cerebral infarction without residual deficits; I25.10 Atherosclerotic heart disease of native coronary artery without angina pectoris; Z98.61 Coronary angioplasty status; R59.0 Localized enlarged lymph nodes; E78.5 Hyperlipidemia, unspecified; G47.33 Obstructive sleep apnea (adult) (pediatric); Z79.01 Long term (current) use of anticoagulants; F17.200 Nicotine dependence, unspecified, uncomplicated; I27.20 Pulmonary hypertension, unspecified; E66.9 Obesity, unspecified; Z68.32 Body mass index [BMI] 32.0-32.9, adult; N18.9 Chronic kidney disease, unspecified; E11.22 Type 2 diabetes mellitus with diabetic chronic kidney disease; B96.5 Pseudomonas (aeruginosa) (mallei) (pseudomallei) as the cause of diseases classified elsewhere; I48.0 Paroxysmal atrial fibrillation; E11.40 Type 2 diabetes mellitus with diabetic neuropathy, unspecified; K21.9 Gastro-esophageal reflux disease without esophagitis
CPT/HCPCS: 36415; 36600; 51700; 70450; 71045; 71046; 71260; 74018; 74177; 80048; 80053; 81001; 82550; 82553; 82607; 82805; 82948; 83036; 83605; 83615; 83690; 83735; 83880; 84100; 84436; 84443; 84479; 84484; 85025; 85610; 85730; 86850; 86900; 87040; 87071; 87086; 87186; 87205; 93005; 93306; 93458; 94640; 94799; 97139; 99152; 99153; 99285; C1760; C1887; J0692; J1100; J1644; J1650; J1817; J2001; J2250; J3010; J3370; J7030; J7050; J7121; Q9967; U0002

== ENCOUNTER 2021-07-13 14:58 | Emergency (ER) | payer MEDICARE ==
[~2021-07-13] VITALS: Ht 365.8 cm; Wt 108.4 kg
== END 2021-07-13 19:28 | disposition home or self-care (01) ==
LOC: ER 19:26
DX: R05.9 Cough, unspecified (principal); J44.9 Chronic obstructive pulmonary disease, unspecified; E11.9 Type 2 diabetes mellitus without complications; I50.9 Heart failure, unspecified; G47.30 Sleep apnea, unspecified
CPT/HCPCS: 71045; 99283

== ENCOUNTER 2021-07-23 11:43 | Inpatient (IN) | payer MEDICARE, OTHER ==
[~2021-07-23] VITALS: Ht 182.9 cm; Wt 108.4 kg
[2021-07-23 14:59] LABS: BASOPHILS # (AUTO) 0.1 (0.0-0.1); BASOPHILS % 0.8 % (0.0-1.0); EOSINOPHILS # (AUTO) 0.2 (0.0-0.4); EOSINOPHILS % 1.6 % (0.0-6.0); HEMATOCRIT 44.5 % (38.2-49.6); HEMOGLOBIN 13.8 g/dL (14.0-18.0); LYMPHOCYTES # (AUTO) 2.1 (1.0-3.2); MEAN CORPUSCULAR HEMOGLOBIN 28.9 pg (28-32); MEAN CORPUSCULAR VOLUME 93.1 fL (81-99); MONOCYTES # (AUTO) 0.8 (0.2-0.8); MONOCYTES % 6.3 % (4.4-11.3); NEUTROPHILS # (AUTO) 9.7 (2.1-6.9); PLATELET COUNT 316 x10e3/uL (140-360); RED BLOOD COUNT 4.78 x10e6/uL (4.3-5.7); RED CELL DISTRIBUTION WIDTH 15.2 % (11.7-14.4)
[2021-07-23 15:09] LABS: CLARITY,URINE CLOUDY (CLEAR); COLOR,URINE YELLOW (YELLOW); KETONES,URINE NEGATIVE (NEGATIVE); LEUKOCYTE ESTERASE ,URINE 2+ (NEGATIVE); NITRITE,URINE NEGATIVE (NEGATIVE); PROTEIN,URINE DIPSTICK 2+ (NEGATIVE); URINE UROBILINOGEN 0.2 mg/dL (0.2 - 1)
[2021-07-23 15:13] LABS: INR 0.87; PROTHROMBIN TIME 12.6 seconds (11.9-14.5)
[2021-07-23 15:23] LABS: ALBUMIN 3.5 g/dL (3.5-5.0); ANION GAP 15.9 mmol/L (8-16); CALCIUM 9.4 mg/dL (8.4-10.2); CREATININE, SERUM 1.41 mg/dL (0.72-1.25); POTASSIUM 3.9 mmol/L (3.5-5.1)
[2021-07-23 15:44] LABS: BACTERIA,URINE MANY /HPF; EPITHELIAL CELLS,URINE FEW /LPF; WBC,URINE (MAN) >50 /HPF (0-5)
[2021-07-23] MEDS ORDERED: SODIUM CHLORIDE 0.9% 1000ML 1,000 ML IV ONE (15:50)
[2021-07-23] MEDS ORDERED: SODIUM CHLORIDE 0.9% 100 ML ONE (17:25)
[2021-07-23] MEDS ORDERED: IOPAMIDOL 370 MG/ML 100 ML INFUS..BTL INJ ONE (17:25)
[2021-07-23] MEDS ORDERED: SODIUM CHLORIDE FLUSH 10 ML SYR INJ PRN (17:30)
[2021-07-23] MEDS: HYDRALAZINE HCL 20 MG/ML VIAL IV PRN ×2 (17:48→20:00)
[2021-07-23 20:00] VITALS: BP 136/67
[2021-07-23] MEDS ORDERED: ACETAMINOPHEN 325 MG TAB PO PRN (20:15)
[2021-07-23] MEDS: ONDANSETRON HCL INJ 2MG/ML 2ML 2 MG/ML VIAL IV PRN (21:07)
[2021-07-23 21:13] VITALS: BP 200/102
[2021-07-23] MEDS ORDERED: MOTRIN200 MG PO (22:47)
[2021-07-23] MEDS ORDERED: DOCUSATE SODIU100 MG PO (22:47)
[2021-07-23] MEDS ORDERED: ALBUTEROL/IPRATROPIUM 3 ML NEB NEB STA (22:47)
[2021-07-23] MEDS ORDERED: DOCUSATE SODIUM 100 MG CAP PO PRN (23:00)
[2021-07-24] VITALS (11 sets, daily range): BP systolic 132–195; BP diastolic 55–91
[2021-07-24] MEDS ORDERED: SODIUM CHLORIDE 0.9% 250ML 250 ML ONE (04:32)
[2021-07-24] MEDS: HYDRALAZINE HCL 20 MG/ML VIAL IV PRN (05:48)
[2021-07-24] MEDS: ONDANSETRON HCL INJ 2MG/ML 2ML 2 MG/ML VIAL IV PRN (06:08)
[2021-07-24] MEDS: ACETAMINOPHEN 325 MG TAB PO PRN ×3 (06:09→16:17)
[2021-07-24 06:37] LABS: BASOPHILS # (AUTO) 0.1 (0.0-0.1); BASOPHILS % 0.7 % (0.0-1.0); EOSINOPHILS # (AUTO) 0.2 (0.0-0.4); HEMATOCRIT 41.1 % (38.2-49.6); HEMOGLOBIN 12.8 g/dL (14.0-18.0); LYMPHOCYTES # (AUTO) 2.2 (1.0-3.2); LYMPHOCYTES % 13.7 % (18.0-39.1); MEAN CORPUSCULAR HEMOGLOBIN 28.4 pg (28-32); MEAN CORPUSCULAR HGB CONC 31.1 g/dL (31-35); MEAN CORPUSCULAR VOLUME 91.3 fL (81-99); MONOCYTES # (AUTO) 1.1 (0.2-0.8); MONOCYTES % 6.9 % (4.4-11.3); NEUTROPHILS # (AUTO) 12.4 (2.1-6.9); NEUTROPHILS % 77.2 % (38.7-80.0); PLATELET COUNT 356 x10e3/uL (140-360); RED CELL DISTRIBUTION WIDTH 15.2 % (11.7-14.4)
[2021-07-24 07:00] LABS: ANION GAP 13.6 mmol/L (8-16); CALCIUM 9.2 mg/dL (8.4-10.2); CREATININE, SERUM 1.31 mg/dL (0.72-1.25); POTASSIUM 3.6 mmol/L (3.5-5.1)
[2021-07-24] MEDS: ALBUTEROL/IPRATROPIUM 3 ML NEB NEB SCH ×2 (07:53→19:05)
[2021-07-24] MEDS ORDERED: IBUPROFEN 200 MG TAB PO SCH (09:00)
[2021-07-24] MEDS: PANTOPRAZOLE SOD 40 MG TABEC PO SCH (09:23)
[2021-07-24] MEDS: GLIMEPIRIDE 2 MG TAB PO SCH ×2 (09:23→17:48)
[2021-07-24] MEDS: POTASSIUM CHLORIDE 10MEQ EA PO SCH (09:24)
[2021-07-24] MEDS: FUROSEMIDE 20 MG TAB PO SCH (09:24)
[2021-07-24] MEDS: METOPROLOL TARTRATE 50 MG TAB PO SCH (09:24)
[2021-07-24] MEDS: BENAZEPRIL HCL 10 MG TAB PO SCH (09:24)
[2021-07-24] MEDS: CHOLECALCIFEROL 1,000 UNIT TAB PO SCH (09:25)
[2021-07-24] MEDS: ASCORBIC ACID 500 MG TAB PO SCH (09:25)
[2021-07-24] MEDS: OMEGA 3 POLYUNSAT FATTY ACIDS 1000 MG SOFTGEL PO SCH (09:25)
[2021-07-24] MEDS: MULTIVITAMINS/MINERALS TAB PO SCH (09:25)
[2021-07-24] MEDS: IBUPROFEN 400 MG TAB PO SCH ×2 (09:25→17:49)
[2021-07-24] MEDS ORDERED: DOCUSATE SODIUM 100 MG CAP PO PRN (21:00)
[2021-07-24] MEDS: SIMVASTATIN 40 MG TAB PO SCH (21:00)
[2021-07-25] VITALS (8 sets, daily range): BP systolic 129–183; BP diastolic 69–86
[2021-07-25] MEDS: HYDRALAZINE HCL 20 MG/ML VIAL IV PRN (04:28)
[2021-07-25] MEDS ORDERED: FUROSEMIDE INJ 10 MG/ML 4 ML VIAL IV ONE (04:45)
[2021-07-25 05:29] LABS: BASOPHILS # (AUTO) 0.1 (0.0-0.1); BASOPHILS % 0.6 % (0.0-1.0); EOSINOPHILS # (AUTO) 0.4 (0.0-0.4); EOSINOPHILS % 2.4 % (0.0-6.0); HEMATOCRIT 41.2 % (38.2-49.6); HEMOGLOBIN 12.8 g/dL (14.0-18.0); LYMPHOCYTES # (AUTO) 1.7 (1.0-3.2); LYMPHOCYTES % 9.8 % (18.0-39.1); MEAN CORPUSCULAR HEMOGLOBIN 28.7 pg (28-32); MEAN CORPUSCULAR HGB CONC 31.1 g/dL (31-35); MEAN CORPUSCULAR VOLUME 92.4 fL (81-99); MONOCYTES # (AUTO) 1.2 (0.2-0.8); MONOCYTES % 6.7 % (4.4-11.3); NEUTROPHILS # (AUTO) 14.2 (2.1-6.9); NEUTROPHILS % 79.8 % (38.7-80.0); PLATELET COUNT 332 x10e3/uL (140-360); RED BLOOD COUNT 4.46 x10e6/uL (4.3-5.7); RED CELL DISTRIBUTION WIDTH 15.7 % (11.7-14.4)
[2021-07-25] MEDS: ALBUTEROL/IPRATROPIUM 3 ML NEB NEB SCH ×2 (06:55→19:05)
[2021-07-25 07:45] LABS: ANION GAP 13.5 mmol/L (8-16); CALCIUM 9.2 mg/dL (8.4-10.2); CREATININE, SERUM 1.36 mg/dL (0.72-1.25); POTASSIUM 3.5 mmol/L (3.5-5.1)
[2021-07-25] MEDS: PANTOPRAZOLE SOD 40 MG TABEC PO SCH (08:09)
[2021-07-25] MEDS: FUROSEMIDE 20 MG TAB PO SCH (08:09)
[2021-07-25] MEDS: METOPROLOL TARTRATE 50 MG TAB PO SCH (08:09)
[2021-07-25] MEDS: GLIMEPIRIDE 2 MG TAB PO SCH ×2 (08:09→16:29)
[2021-07-25] MEDS: MULTIVITAMINS/MINERALS TAB PO SCH (08:10)
[2021-07-25] MEDS: BENAZEPRIL HCL 10 MG TAB PO SCH (08:10)
[2021-07-25] MEDS: OMEGA 3 POLYUNSAT FATTY ACIDS 1000 MG SOFTGEL PO SCH (08:10)
[2021-07-25] MEDS: IBUPROFEN 400 MG TAB PO SCH ×2 (08:10→16:29)
[2021-07-25] MEDS: POTASSIUM CHLORIDE 10MEQ EA PO SCH (08:10)
[2021-07-25] MEDS: ASCORBIC ACID 500 MG TAB PO SCH (08:10)
[2021-07-25] MEDS: CHOLECALCIFEROL 1,000 UNIT TAB PO SCH (08:10)
[2021-07-25] MEDS: SIMVASTATIN 40 MG TAB PO SCH (20:51)
[2021-07-26] VITALS (7 sets, daily range): BP systolic 135–162; BP diastolic 56–98
[2021-07-26 06:46] LABS: BASOPHILS # (AUTO) 0.1 (0.0-0.1); BASOPHILS % 0.7 % (0.0-1.0); EOSINOPHILS # (AUTO) 0.6 (0.0-0.4); EOSINOPHILS % 4.6 % (0.0-6.0); HEMATOCRIT 37.9 % (38.2-49.6); HEMOGLOBIN 11.9 g/dL (14.0-18.0); LYMPHOCYTES # (AUTO) 1.3 (1.0-3.2); LYMPHOCYTES % 9.7 % (18.0-39.1); MEAN CORPUSCULAR HEMOGLOBIN 28.7 pg (28-32); MEAN CORPUSCULAR HGB CONC 31.4 g/dL (31-35); MEAN CORPUSCULAR VOLUME 91.5 fL (81-99); MONOCYTES % 7.8 % (4.4-11.3); NEUTROPHILS # (AUTO) 10.2 (2.1-6.9); NEUTROPHILS % 76.7 % (38.7-80.0); PLATELET COUNT 325 x10e3/uL (140-360); RED BLOOD COUNT 4.14 x10e6/uL (4.3-5.7); RED CELL DISTRIBUTION WIDTH 15.5 % (11.7-14.4)
[2021-07-26] MEDS: ALBUTEROL/IPRATROPIUM 3 ML NEB NEB SCH ×3 (07:19→19:05)
[2021-07-26 07:28] LABS: ANION GAP 12.4 mmol/L (8-16); CALCIUM 8.8 mg/dL (8.4-10.2); CREATININE, SERUM 1.24 mg/dL (0.72-1.25); POTASSIUM 3.4 mmol/L (3.5-5.1)
[2021-07-26] MEDS: PANTOPRAZOLE SOD 40 MG TABEC PO SCH (07:30)
[2021-07-26] MEDS: POTASSIUM CHLORIDE 10MEQ EA PO SCH (08:00)
[2021-07-26] MEDS: GLIMEPIRIDE 2 MG TAB PO SCH ×2 (08:00→16:48)
[2021-07-26] MEDS: BENAZEPRIL HCL 10 MG TAB PO SCH (09:00)
[2021-07-26] MEDS: OMEGA 3 POLYUNSAT FATTY ACIDS 1000 MG SOFTGEL PO SCH (09:00)
[2021-07-26] MEDS: CHOLECALCIFEROL 1,000 UNIT TAB PO SCH (09:00)
[2021-07-26] MEDS: ASCORBIC ACID 500 MG TAB PO SCH (09:00)
[2021-07-26] MEDS: MULTIVITAMINS/MINERALS TAB PO SCH (09:00)
[2021-07-26] MEDS: METOPROLOL TARTRATE 50 MG TAB PO SCH (09:00)
[2021-07-26] MEDS: FUROSEMIDE INJ 10 MG/ML 4 ML VIAL IV SCH (09:00)
[2021-07-26] MEDS: IBUPROFEN 400 MG TAB PO SCH ×2 (09:00→16:48)
[2021-07-26] MEDS ORDERED: POTASSIUM CHLORIDE 10MEQ EA PO ONE (12:45)
[2021-07-26] MEDS: SIMVASTATIN 40 MG TAB PO SCH (21:34)
[2021-07-27] VITALS: BP 161/71
[2021-07-27 04:00] VITALS: BP 169/89
[2021-07-27 05:33] LABS: BASOPHILS # (AUTO) 0.1 (0.0-0.1); EOSINOPHILS # (AUTO) 0.7 (0.0-0.4); EOSINOPHILS % 6.4 % (0.0-6.0); HEMATOCRIT 38.1 % (38.2-49.6); HEMOGLOBIN 11.9 g/dL (14.0-18.0); LYMPHOCYTES # (AUTO) 1.4 (1.0-3.2); LYMPHOCYTES % 13.4 % (18.0-39.1); MEAN CORPUSCULAR HEMOGLOBIN 28.9 pg (28-32); MEAN CORPUSCULAR HGB CONC 31.2 g/dL (31-35); MEAN CORPUSCULAR VOLUME 92.5 fL (81-99); MONOCYTES # (AUTO) 1.1 (0.2-0.8); MONOCYTES % 10.1 % (4.4-11.3); NEUTROPHILS # (AUTO) 7.2 (2.1-6.9); NEUTROPHILS % 68.9 % (38.7-80.0); PLATELET COUNT 335 x10e3/uL (140-360); RED BLOOD COUNT 4.12 x10e6/uL (4.3-5.7); RED CELL DISTRIBUTION WIDTH 15.6 % (11.7-14.4)
[2021-07-27 05:46] LABS: ANION GAP 11.5 mmol/L (8-16); CALCIUM 9.1 mg/dL (8.4-10.2); CREATININE, SERUM 1.39 mg/dL (0.72-1.25); POTASSIUM 3.5 mmol/L (3.5-5.1)
[2021-07-27] MEDS: ALBUTEROL/IPRATROPIUM 3 ML NEB NEB SCH ×2 (06:47→20:05)
[2021-07-27] MEDS: PANTOPRAZOLE SOD 40 MG TABEC PO SCH (07:30)
[2021-07-27] MEDS: GLIMEPIRIDE 2 MG TAB PO SCH ×2 (08:00→16:39)
[2021-07-27] MEDS: POTASSIUM CHLORIDE 10MEQ EA PO SCH (08:00)
[2021-07-27 08:26] VITALS: BP 149/78
[2021-07-27] MEDS: METOPROLOL TARTRATE 50 MG TAB PO SCH (09:00)
[2021-07-27] MEDS: ASCORBIC ACID 500 MG TAB PO SCH (09:00)
[2021-07-27] MEDS: MULTIVITAMINS/MINERALS TAB PO SCH (09:00)
[2021-07-27] MEDS: CHOLECALCIFEROL 1,000 UNIT TAB PO SCH (09:00)
[2021-07-27] MEDS: IBUPROFEN 400 MG TAB PO SCH ×2 (09:00→16:40)
[2021-07-27] MEDS: BENAZEPRIL HCL 10 MG TAB PO SCH (09:00)
[2021-07-27] MEDS: OMEGA 3 POLYUNSAT FATTY ACIDS 1000 MG SOFTGEL PO SCH (09:00)
[2021-07-27] MEDS: FUROSEMIDE INJ 10 MG/ML 4 ML VIAL IV SCH ×2 (09:00→16:39)
[2021-07-27] MEDS ORDERED: ONDANSETRON HCL 4 MG ORAL DISINTEGRATING TAB PO PRN (12:45)
[2021-07-27 16:24] VITALS: BP 172/83
[2021-07-27 20:00] VITALS: BP 170/72
[2021-07-27] MEDS: SIMVASTATIN 40 MG TAB PO SCH (20:18)
[2021-07-27 21:33] VITALS: BP 170/72
[2021-07-28] VITALS: BP 179/77
[2021-07-28] MEDS: HYDRALAZINE HCL 20 MG/ML VIAL IV PRN (00:26)
[2021-07-28 04:00] VITALS: BP 168/96
[2021-07-28] MEDS: ALBUTEROL/IPRATROPIUM 3 ML NEB NEB SCH (06:50)
[2021-07-28 08:03] VITALS: BP 171/83
[2021-07-28 08:09] VITALS: BP 171/83
[2021-07-28] MEDS: FUROSEMIDE INJ 10 MG/ML 4 ML VIAL IV SCH (08:24)
[2021-07-28] MEDS: METOPROLOL TARTRATE 50 MG TAB PO SCH (08:24)
[2021-07-28] MEDS: GLIMEPIRIDE 2 MG TAB PO SCH ×2 (08:24→17:11)
[2021-07-28] MEDS: BENAZEPRIL HCL 10 MG TAB PO SCH (08:24)
[2021-07-28] MEDS: PANTOPRAZOLE SOD 40 MG TABEC PO SCH (08:24)
[2021-07-28] MEDS: POTASSIUM CHLORIDE 10MEQ EA PO SCH (08:25)
[2021-07-28] MEDS: CHOLECALCIFEROL 1,000 UNIT TAB PO SCH (08:25)
[2021-07-28] MEDS: MULTIVITAMINS/MINERALS TAB PO SCH (08:25)
[2021-07-28] MEDS: OMEGA 3 POLYUNSAT FATTY ACIDS 1000 MG SOFTGEL PO SCH (08:25)
[2021-07-28] MEDS: ASCORBIC ACID 500 MG TAB PO SCH (08:25)
[2021-07-28] MEDS: IBUPROFEN 400 MG TAB PO SCH ×2 (08:25→17:11)
[2021-07-28 11:17] VITALS: BP 150/78
[2021-07-28 16:28] VITALS: BP 169/90
[2021-07-28] MEDS ORDERED: FUROSEMIDE 40 MG TAB PO SCH (17:00)
[2021-07-28] MEDS ORDERED: FUROSEMIDE INJ 10 MG/ML 4 ML VIAL IV SCH (18:00)
[2021-07-29] MEDS ORDERED: AMLODIPINE BESYLATE 10 MG TAB PO SCH (09:00)
== END 2021-07-28 17:28 | disposition home or self-care (01) | DRG 291 ==
LOC: ER 12:32 → ERHOLD 17:19 → MED/SURG2 18:52 → OBSVTOIN 07-25 07:49
DX: I11.0 Hypertensive heart disease with heart failure (principal); I50.23 Acute on chronic systolic (congestive) heart failure; N39.0 Urinary tract infection, site not specified; G45.9 Transient cerebral ischemic attack, unspecified; S00.83XA Contusion of other part of head, initial encounter; E11.9 Type 2 diabetes mellitus without complications; W01.0XXA Fall on same level from slipping, tripping and stumbling without subsequent striking against object, initial encounter; Y93.89 Activity, other specified; I25.10 Atherosclerotic heart disease of native coronary artery without angina pectoris; I48.91 Unspecified atrial fibrillation; J44.9 Chronic obstructive pulmonary disease, unspecified; Z95.1 Presence of aortocoronary bypass graft; Z95.818 Presence of other cardiac implants and grafts; Z90.49 Acquired absence of other specified parts of digestive tract; Z20.822 Contact with and (suspected) exposure to COVID-19; Z79.82 Long term (current) use of aspirin; Z79.84 Long term (current) use of oral hypoglycemic drugs
CPT/HCPCS: 36415; 70450; 70486; 70496; 70498; 70551; 71045; 80048; 80053; 81001; 82948; 83880; 84484; 85025; 85610; 85730; 87086; 87186; 93306; 94799; 96361; 99251; 99284; G0378; J0360; J0696; J1940; J2405; J7030; J7050; Q9967

== ENCOUNTER → 2021-08-04 | Outpatient (CLI) | payer MEDICARE ==
[~2021-08-04] MED LIST changes: +DOCUSATE SODIU100 MG PO; +MOTRIN200 MG PO
== END ==
LOC: SLEEP 19:20
PROVIDERS: ATTEND Internal Medicine Critical Care Medicine
DX: G47.33 Obstructive sleep apnea (adult) (pediatric) (principal); Z20.822 Contact with and (suspected) exposure to COVID-19
CPT/HCPCS: 95811; U0002